=== PATIENT | female | born 1950 | race Caucasian/White ===

== ENCOUNTER → 2019-04-12 13:40 | Outpatient (CLI) | payer MEDICARE, OTHER, SELFPAY ==
--- NOTE | 2019-04-12 14:53 | XR_ITS ---
XR clavicle LT CLINICAL INDICATION: ITS.REASON: DEFORMITY ORDERING PHYSICIAN: Loree Mendoza APRN PATIENT AGE: 68 years Comparison: None FINDINGS: There is minimal prominence of the acromioclavicular joint space. In the setting of trauma this could represent a grade 1 before meals separation. Please correlate with clinical findings. No acute fracture. There is some minimal cortical thickening involving the junction of the mid distal aspect of the clavicle both superiorly and inferiorly which could be related to an old injury. No bony destructive process. IMPRESSION: 1. Mild prominence of the AC joint. 2. Mild cortical thickening of the mid to distal shaft of the clavicle which could be related to an old injury.
== END ==
PROVIDERS: PCP Nurse Practitioner Family; Visit Provider Nurse Practitioner Family
DX: M95.8 Other specified acquired deformities of musculoskeletal system (principal)
CPT/HCPCS: 73000

== ENCOUNTER → 2021-06-11 10:35 | Outpatient (CLI) | payer MEDICARE, OTHER, SELFPAY ==
--- NOTE | 2021-06-11 10:44 | CA_ITS ---
APPROVED REPORT Right Lower Extremity Venous Study for DVT. Travel Attendants: MACK Barnes Lower Extremity Pain: Right Varicose Veins Vein Imaging CFV (R): compressive, spontaneous, phasic, augmentation FEM (R): compressive, spontaneous, phasic, augmentation POP (R): compressive, spontaneous, phasic, augmentation DFV (R): compressive, spontaneous, phasic, augmentation PTV (R): compressive, spontaneous, phasic, augmentation GSV (R): compressive, spontaneous, phasic, augmentation Peroneals (R):compressive, spontaneous, phasic, augmentation Findings Study suggests no evidence of DVT or SVT in the right lower extremity. Conclusion Study suggests no evidence of DVT or SVT in the right lower extremity. Critical Notification Critical Value: No Physician Notified Date: 06/11/2021 Time: 11:20 Physician Name: Leti Electronically signed by : Austin Antoine MD 06/11/2021 16:34:52
== END ==
PROVIDERS: PCP Nurse Practitioner Family; Visit Provider Nurse Practitioner
DX: M79.604 Pain in right leg (principal)
CPT/HCPCS: 93971

== ENCOUNTER 2021-08-23 16:00 | Outpatient (RCR) | payer MEDICARE, OTHER, SELFPAY | END 2021-09-30 15:55 | disposition home or self-care (01) | LOC: PT.CARL 16:00 | PROVIDERS: PCP Nurse Practitioner Family; Visit Provider Nurse Practitioner Family | DX: M70.61 Trochanteric bursitis, right hip (principal) | CPT/HCPCS: 97014; 97033; 97035; 97110; 97140; 97163; G0283 ==

== ENCOUNTER → 2021-09-09 14:15 | Outpatient (CLI) | payer MEDICARE, OTHER, SELFPAY ==
--- NOTE | 2021-09-09 14:19 | MR_ITS ---
PROCEDURE: MR LUMBAR SPINE WO CON CLINICAL INDICATION: PAIN DOWN RT LEG COMPARISON: No exams were available for comparison TECHNIQUE: Standard multiplanar multiecho sequences are performed without contrast. 3-D MIP and myelographic images are also rendered and reviewed FINDINGS: There is trace anterolisthesis of L5 on S1. At L1-2, there is diffuse disc bulge and facet arthropathy producing mild canal stenosis. There is also edema in the facets at this level. At L2-3, there is diffuse disc bulge, severe facet arthropathy, and ligamentum flavum hypertrophy producing severe canal stenosis and severe bilateral neural foraminal stenosis. At L3-4, there is diffuse disc bulge, a good ligamentum flavum hypertrophy, and facet arthropathy producing moderate canal stenosis and severe bilateral neural foraminal stenosis. There is also edema in the left facet joint at this level. At L4-5, there is diffuse disc bulge, facet arthropathy, and ligamentum flavum hypertrophy producing moderate canal stenosis and severe right and moderate left neural foraminal stenosis. There is edema in the right facet joint at this level. There are T2 hyperintense T1 hyperintense lesions within the vertebral bodies at T10 and L1 consistent with hemangiomas. IMPRESSION: Lumbar spondylosis and spondylolisthesis as detailed above, with the worst changes at L2-3 where there is severe canal and bilateral neuroforaminal stenosis. Dictated by: Marga Jenkins MD 09/09/2021 16:23 Marga Jenkins MD in [place] 09/09/2021 16:23
== END ==
PROVIDERS: PCP Nurse Practitioner Family; Visit Provider Nurse Practitioner Family
DX: M51.15 Intervertebral disc disorders with radiculopathy, thoracolumbar region (principal); M54.50 Low back pain, unspecified
CPT/HCPCS: 72148; 76376

== ENCOUNTER 2021-10-19 12:58 | Emergency (ER) | payer MEDICARE, OTHER, SELFPAY ==
--- NOTE | 2021-10-19 13:02 | XR_ITS ---
PROCEDURE: XR HIP RT 2-3V W/PELVIS CLINICAL INDICATION: PAIN, NO ACCIDENT COMPARISON: No exams were available for comparison FINDINGS: There are moderate to severe osteoarthritic changes of the right hip with decrease in joint space superiorly and osteophyte formation at the acetabulum and femoral head. There is some cortical regularity of the acetabulum. No fracture or dislocation. No lytic or blastic change. IMPRESSION: Moderate to severe osteoarthritis of the right hip Dictated by: Austin Antoine MD 10/19/2021 14:32 Austin Antoine MD in [place] 10/19/2021 14:32
[2021-10-19 14:31] VITALS: BP 179/95; PULSE 82; RESP 16; TEMP 36.7; O2SAT 98; BMI 37.3
--- NOTE | 2021-10-19 14:50 | HMH.EDUTC ---
[facility] [place] Disposition Clinical Impression: Sciatica Qualifiers: Laterality: right Qualified Code(s): M54.31 - Sciatica, right side Disposition: Home, Self-Care Condition on Discharge: Good Instructions: Sciatica, DI for Sciatica Additional Instructions: *Ibuprofen sherry 6 hours with meal as needed for pain/inflammation *Remember you had a Toradol shot in the clinic today, which is similar to Motrin *Not additional anti-inflammatory like motrin, aleve, advil with the above amount of ibuprofen. You can still take Tylenol every 4 hours as needed if you need something else for pain *Ice 20 minutes every 2 hours for the first 48 hours after the initial injury followed by moist heat every 20 minutes 3-4 times a day to affected area *Muscle relaxer every 8 hours as needed for muscle spasms but remember, it WILL cause drowsiness You cannot take it and drive, operate machinery or care for small children. *Keep this area active, no movement leads to more stiffness, However take it easy and avoid heavy lifting pushing or pulling *Follow up with you family doctor if no improvement for further treatment Referrals: Nirali Esqueda [Primary Care Provider] - Patsy Anthony APRN [Advanced Practice Nurse] - 10/25/21 2:30 pm ([facility] in the Front Lobby) Medical Decision Making - Blaze Inquiry Pt receiving controlled substance: No Blaze was queried for this patient: No Vital Signs: 10/19/21 14:31 10/19/21 15:25 Temperature 98.1 F 98.1 F Temperature Source Oral Pulse Rate 82 Pulse Rate [Left] 82 Respiratory Rate 16 16 Blood Pressure 179/95 H Blood Pressure [Right Arm] 179/95 H Blood Pressure Mean [Right Arm] 123 02 Sat by Pulse Oximetry 98 Orders (Tests/Meds): ED MEDICATIONS Discontinued Medications Generic Name Dose Route Start Last Admin Trade Name Freq PRN Reason Stop Dose Admin Ketorolac Tromethamine 60 mg 10/19/21 14:58 10/19/21 15:07 Ketorolac 60mg/2ml Vial IM 10/19/21 14:59 60 mg ONCE ONE Administration Methylprednisolone Sodium Succinate 125 mg 10/19/21 14:58 10/19/21 15:06 Methylprednisolone Sod Succ 125mg Vial IM 10/19/21 14:59 125 mg ONCE ONE Administration - Radiology Data #1 Image(s): Hip Image Reviewed: Yes I have reviewed radiologist's interpretation Moderate to severe osteoarthritis of the right hip #2 Image(s): L-Spine Image Reviewed: Yes I have reviewed radiologist's interpretation IMPRESSION: Multilevel lumbar spondylosis with degenerative disc disease. 8 mm anterolisthesis of L5 on S1 - Physician Consults Physician Consulted: Patsy Anthony Time: 14:59 Reason -: Other (Pain Management) Comment/Response: Spoke with staff at pain management to get patient in for medication injection to help with pain from sciatica Requested that we get a Lspine to go along with the hip xray an they will see her on Monday at 230 Medical Decision Narrative: Patient states that she has taken both Toradol and Solumedrol in the past without complications or reactions Patient ordered xray of Lspine will not make patient wait for results ordered for her visit on Monday with Pain Management [facility] [place] HPI - General Stated complaint: hip pain, no accident Time Seen by Provider: 10/19/21 14:50 Mode of Arrival: Ambulatory Source of Information: Patient Limitations: No Limitations Description of Symptoms (Recalled from Triage Doc. by RN): pt c/o R hip and buttock pain. pain is 8/10 and sharp in nature. pt states this has been ongoing for awhile now. pt has seen her pcp for the issue who said it may be a pinched nerve. pt is ongoing therapy at and a chiropracter. HEENT Symptoms (Recalled from RN notes): No Resp Symptoms (Recalled from RN notes): No Skin Symptoms (Recalled from RN notes): No MS Symptoms (Recalled from RN notes): Yes (R hip pain) Functional Status (Recalled from RN notes): wnl - History of Present Illness Provider Complaint: Patient states that she has bee
--- NOTE | 2021-10-19 14:56 | XR_ITS ---
PROCEDURE: XR LUMBAR SPINE 2-3V CLINICAL INDICATION: pain COMPARISON: MR MR LUMBAR SPINE WO CON from 09/09/2021 FINDINGS: There is mild lumbar curvature convex left. Multilevel degenerative disc disease is present from L1-S1. There is mild anterolisthesis of L5 on S1 of 8 mm. No fracture or dislocation. No lytic or blastic change. There is severe osteoarthritic change of the right hip and moderate osteoarthritis of the left hip. Generalized vascular calcification. Other findings:None. IMPRESSION: Multilevel lumbar spondylosis with degenerative disc disease. 8 mm anterolisthesis of L5 on S1 Dictated by: Austin Antoine MD 10/19/2021 15:37 Austin Antoine MD in [place] 10/19/2021 15:37
[2021-10-19 15:25] VITALS: BP 179/95; PULSE 82; RESP 16; TEMP 36.7
== END 2021-10-19 15:26 | disposition home or self-care (01) ==
PROVIDERS: Emergency Provider Nurse Practitioner; PCP Nurse Practitioner Family
DX: M54.31 Sciatica, right side (principal); E11.9 Type 2 diabetes mellitus without complications; Z79.84 Long term (current) use of oral hypoglycemic drugs
CPT/HCPCS: 72100; 73502; 96372; 99202; G0463

== ENCOUNTER → 2021-10-21 14:04 | Outpatient (POV) | payer MEDICARE, OTHER, SELFPAY ==
[2021-10-21 14:27] VITALS: BP 141/83; PULSE 87; RESP 18; O2SAT 96; BMI 37.3
--- NOTE | 2021-10-21 15:47 | HMH.PMCON ---
Assessment and Plan (1) Degenerative joint disease (DJD) of lumbar spine Status: Chronic Category: Medical Code(s): M47.816 - Spondylosis without myelopathy or radiculopathy, lumbar region (2) Lumbar radiculopathy Status: Chronic Category: Medical Code(s): M54.16 - Radiculopathy, lumbar region (3) Facet arthropathy Status: Chronic Category: Medical Code(s): M47.819 - Spondylosis without myelopathy or radiculopathy, site unspecified (4) Spinal stenosis Status: Chronic Category: Medical Code(s): M48.00 - Spinal stenosis, site unspecified - Assessment and plan all Dx Assessment and Plan for all problems:: The patient is here today for consultation for right buttock pain, right hip pain and right anterior thigh pain. We discussed her MRI in great detail as well as the x-rays of her lumbar spine and hips. The patient does have severe osteoarthritis right hip as well as moderate osteoarthritis left hip per x-ray report. Per MRI report, patient does have facet arthropathy with edema as well as severe spinal stenosis and is exhibiting somewhat of neurogenic claudication symptoms with weakness in lower extremities. Patient I did discuss her symptoms. She is unsure about injective therapy at this point we did discuss continuing anti-inflammatories prescribed with diclofenac 75 mg 1 tablet p.o. twice daily. She has been advised to stop taking any other [id number] anti-inflammatories. We will also start the patient on tramadol 50 mg 1 tablet p.o. 3 times daily until she is able to discuss injective therapy with her family. She will contact the clinic if she does decide to proceed with injections. We will start with injective therapy of medial branch block/facet joint injections at L3-L4 L4-L5 on the right side only if the patient does wish to proceed with injections. She is not diabetic and is not on any anticoagulation therapy. We will follow up with her in a month if she does decide to defer on injective therapy. She does report to have facial flushing with corticosteroids. Possible side effects of corticosteroids have been discussed with the patient. Risks and benefits of the procedure have been explained to the patient. Patient would like to proceed with the procedure. Patient has been instructed to contact the clinic with any concerns before the next appointment. Dr. Beasley has reviewed this note and agrees with this plan of care. This note was dictated using voice recognition software and make contain errors or omissions. HPI - Data of Consult Patient: new to practice Consult date: 10/21/21 Requesting Physician: Patsy Anthony APRN - Consult Narrative Reason for consult: Right hip pain, right anterior thigh pain, right buttock pain History of present illness: Ms. De Luna is a 71 year old female who presents today for consultation for chronic right hip, right buttock and right anterior thigh pain. Patient says that she has had ongoing pain to these areas for nearly 6 months. She says the pain has progressively worsened over the last 3 weeks to the point that it was nearly unbearable. She recently followed up with the urgent treatment center and was given Toradol and steroids. She says this did give her some relief. She is here today for evaluation for the pain. She says the pain does worsen when leaning forward. She also reports to have pain with turning and twisting at waist. She has been seeing a chiropractor who reports to the patient that she has misalignment of her pelvis. She says that she has been realigned and initially got relief, but the pain seems to be worsening at this point. She also has tried physical therapy for more than 6 weeks and continues with home stretching. She has been taking anti-inflammatories?Aleve/ibuprofen with minimal relief. The patient's pain is worse when she is standing and walking. She says that she does have pain in her buttock with prolonged sitting. Today, the pa
== END ==
PROVIDERS: Visit Provider Clinical Nurse Specialist Family Health
DX: M47.896 Other spondylosis, lumbar region (principal); M54.16 Radiculopathy, lumbar region; M48.00 Spinal stenosis, site unspecified
CPT/HCPCS: 99212; G0463

== ENCOUNTER → 2021-11-04 09:39 | Outpatient (POV) | payer MEDICARE, OTHER, SELFPAY ==
[2021-11-04 10:07] VITALS: BP 139/80; PULSE 88; RESP 18; O2SAT 97; BMI 37.3
--- NOTE | 2021-11-04 10:49 | HMH.PAINSOAP ---
[facility] Pain Management SOAP Note Subjective:: Patient is a 71-year-old white female who presents today for follow-up. She was previously started on tramadol for right lower extremity pain radiating into right foot. She denies any type of low back pain at this time. We did review her MRI at last visit. The patient is not interested in injective therapy or implanted devices. She was started on tramadol 50 mg 1 tablet p.o. 3 times daily. The medication is not working for the patient. She would like to discuss possible neuropathic medications to help with pain. She does report that her niece takes gabapentin which helps significantly with her lower extremity pain. Today, she rates her pain a 7 out of 10. She is having difficulty standing and walking on her right lower extremity. The pain does start in the right buttock and into the right thigh and foot. She has tried home stretching with minimal relief. She does report side effects to corticosteroids. Review of Systems General: No recent weight changes, no fever, no sleep disturbances Respiratory: No cough, no shortness of air, no recurring pulmonary infections Cardiovascular/peripheral vascular: No chest pain, no palpitations, no edema, no shortness of breath Gastrointestinal: No new onset incontinence, normal bowel movements reported Genitourinary: No new onset incontinence Musculoskeletal: Right lower extremity pain, right buttock pain, right foot pain with numbness and tingling Psychiatric: [Normal mood/affect] Neurological: Weakness right lower extremity Objective:: Physical exam General: Alert and oriented x3, no acute distress, pleasant and cooperative Lungs: Respirations even and unlabored, symmetrical chest expansion Eyes: PERRL Musculoskeletal: Flexion and extension of right lower extremity somewhat guarded secondary to pain, [antalgic gait noted] Neurological: Speech clear, no gross sensory deficit Assessment:: Degenerative disc disease lumbar spine with lumbar radiculopathy symptoms, neuropathic pain Plan:: We will order the patient gabapentin 300 mg 1 tablet p.o. daily to see if this relieves the patient's symptoms of her right lower extremity pain. We will do a telehealth visit with the patient in 2 weeks. If she is getting relief we can increase that to 3 times daily. If patient is not getting relief we may need to change to Lyrica. She has been advised of the risks of the medication. She would like to proceed with the medicine. Risks and benefits of the medication have been explained in detail to the patient. If side effects do present with the medication, patient has been advised to stop the medication immediately and call the clinic. The patient has been advised to consult with his/her primary care provider and pharmacist regarding drug-drug interaction of medications currently prescribed. Patient has been instructed to contact the clinic with any concerns before the next appointment. Dr. Beasley has reviewed this note and agrees with this plan of care. This note was dictated using voice recognition software and make contain errors or omissions. [facility] History I have reviewed the patient's past medical history: Yes Medical History: Reports:: Diabetes Mellitus Type 2 *Have you ever received a pneumonia vaccine?: No *Have you received a flu vaccine this season?: No - *Social History Smoking Status: Never smoker Alcohol Intake: never *Occupational Status:: unemployed Housing: house *Travel in the last 8 weeks: None Family Hx:: No significant family history
== END ==
PROVIDERS: Visit Provider Clinical Nurse Specialist Family Health
DX: M51.16 Intervertebral disc disorders with radiculopathy, lumbar region (principal); M79.2 Neuralgia and neuritis, unspecified
CPT/HCPCS: 99212; G0463

== ENCOUNTER → 2021-11-18 10:32 | Outpatient (POV) | payer MEDICARE, OTHER, SELFPAY ==
--- NOTE | 2021-11-18 11:01 | HMH.VVPMSO ---
[facility] Virtual Visit SOAP Consent for virtual visit:: With the recent concerns about the COVID-19, we are trying to minimize exposure to you by shifting to telehealth appointments whenever possible. It restricts me from seeing you in person, but the trade off is protecting you during this pandemic. Can you see and hear me okay, and do you consent to this option? If not, I would be happy to see if we can reschedule your appointment in the future, when feasible. Has patient consented to this virtual visit?: Yes Subjective:: Patient is a 71-year-old white female who is following up via telehealth medicine today. She has rescheduled via telehealth due to weather conditions today. We do treat the patient for low back pain as well as pain into the right foot. She is currently on tramadol 50 mg 3 times daily and trustworthy person was started on gabapentin 300 mg 1 tablet p.o. daily at last visit. She says this is giving her significant relief. She would like to increase the dose of gabapentin. She says that the medicine does wear off in about 5 hours. She did not have any side effects with the medication. She says that it did lower her pain to a 3 out of 10 which is much better than her 7 out of 10 which was reported at last visit. She says she is able to stand and walk better on her right lower extremity. She also says that the right buttock and right thigh pain has improved as well. Review of Systems General: No recent weight changes, no fever, no sleep disturbances Respiratory: No cough, no shortness of air, no recurring pulmonary infections Cardiovascular/peripheral vascular: No chest pain, no palpitations, no edema, no shortness of breath Gastrointestinal: No new onset incontinence, normal bowel movements reported Genitourinary: No new onset incontinence Musculoskeletal: Low back pain, right lower extremity pain, right buttock pain Psychiatric: [Normal mood/affect] Neurological: [Denies weakness in extremities], [denies balance issues] Objective:: Physical exam General: Alert and oriented x3, no acute distress, pleasant and cooperative Assessment:: Degenerative disc disease lumbar spine with lumbar radiculopathy symptoms, neuropathic pain Plan:: We will continue patient's tramadol 50 mg 1 tablet p.o. 3 times daily and increase gabapentin to 300 mg 1 tablet p.o. 3 times daily. She will get 3 months of medication will be seen back in the clinic in 3 months. Shirin #[id number] has been reviewed and is appropriate. Drug screen is appropriate. ORT is low risk. Patient has signed and completed a pain management agreement/contract today. Risks and benefits of the medication have been explained in detail to the patient. The patient does understand the risk of dependence on the medication when given over a prolonged period. Patient has been advised of risks of oversedation with the prescribed medication. Narcan has been offered to the paitent in the event of oversedation. Patient has been advised that a family member should also be educated regarding administration of Narcan. The patient has been advised to consult with his/her primary care provider and pharmacist regarding drug-drug interaction of medications currently prescribed. Patient has been prescribed a controlled substance after being counseled on the medication, medication safety, and possible side effects. SHIRIN report has been obtained and reviewed prior to prescription and found to be appropriate. Opioid contract was reviewed and signed by the patient, and that they have agreed to all of the terms set forth by our compliance program. Patient has been instructed to contact the clinic with any concerns before the next appointment. Dr. Beasley has reviewed this note and agrees with this plan of care. This note was dictated using voice recognition software and make contain errors or omissions. Time In:: 10:45 Time Out:: 10:55 [facility] History I have revi
== END ==
PROVIDERS: Visit Provider Clinical Nurse Specialist Family Health
DX: M51.16 Intervertebral disc disorders with radiculopathy, lumbar region (principal); M79.2 Neuralgia and neuritis, unspecified
CPT/HCPCS: 99212; G0463

== ENCOUNTER → 2022-02-10 10:16 | Outpatient (POV) | payer MEDICARE, OTHER, SELFPAY ==
[2022-02-10 10:23] VITALS: BP 129/72; PULSE 82; RESP 18; TEMP 36.2; O2SAT 97; BMI 36.6
--- NOTE | 2022-02-10 12:15 | HMH.PAINSOAP ---
[facility] Pain Management SOAP Note Subjective:: Patient is a pleasant 71-year-old female who is here for medication refill and follow-up. Patient is currently being treated for degenerative disc disease of the lumbar spine with lumbar radiculopathy symptoms, neuropathic pain. Patient is being managed with tramadol 50 mg 3 times a day, gabapentin 300 mg 3 times a day, and diclofenac. Patient denies any side effects from the medications. Patient denies any changes to the location and type of pain. Patient states that this is adequately helping manage their pain. Rates pain as 4 out of 10. [facility] number [id number] with an active morphine equivalent 15. Drug screens have been reviewed and appropriate. Review of Systems: General: No recent weight changes, no fever, no sleep disturbances Respiratory: No cough, no shortness of air, no recurring pulmonary infections Cardiovascular/peripheral vascular: No chest pain, no palpitations, no edema, no shortness of breath Gastrointestinal: No new onset incontinence, normal bowel movements reported Genitourinary: No new onset incontinence Musculoskeletal: Low back pain Psychiatric: [Normal mood/affect] Neurological: [Denies weakness in extremities], [denies balance issues] Objective:: Physical Exam: General: Alert and oriented x3, no acute distress, pleasant and cooperative, [on room air] Lungs: Respirations even and unlabored, symmetrical chest expansion Eyes: PERRL Musculoskeletal: Flexion and extension of lumbar [spine] somewhat guarded secondary to pain, [antalgic gait noted] Neurological: Speech clear, no gross sensory deficit Assessment:: Degenerative disc disease of lumbar spine with lumbar radiculopathy symptoms, neuropathic pain Plan:: We will continue the patient's tramadol 50 mg 3 times a day, gabapentin 300 mg 3 times a day. Patient was taking diclofenac 50 mg 3 times a day. She wants us to decrease this medication. I will change her to diclofenac 25 mg 3 times a day. We will provide the patient with 3months of refills. We would like to see the patient back in 3 months for follow-up and reevaluation of chronic pain syndrome. Patient has been advised of risks of oversedation with the prescribed medication. Narcan has been offered to the patient in the event of oversedation. Patient has been advised that a family member should also be educated regarding administration of Narcan. Patient has been instructed to contact the clinic with any concerns before the next appointment. Dr. Beasley has reviewed this note and agrees with this plan of care. This note was dictated using voice recognition software and make contain errors or omissions. [facility] History Medical History: Reports:: Diabetes Mellitus Type 2 *Have you ever received a pneumonia vaccine?: Yes *Have you received a flu vaccine this season?: No - *Social History Smoking Status: Never smoker Alcohol Intake: never *Occupational Status:: retired Housing: house *Travel in the last 8 weeks: None Family Hx:: No significant family history
== END ==
PROVIDERS: Visit Provider Student in an Organized Health Care Education/Training Program
DX: M51.16 Intervertebral disc disorders with radiculopathy, lumbar region (principal); M79.2 Neuralgia and neuritis, unspecified
CPT/HCPCS: 99212; G0463

== ENCOUNTER → 2022-05-12 08:46 | Outpatient (POV) | payer MEDICARE, OTHER, SELFPAY ==
[2022-05-12 08:57] VITALS: BP 132/64; PULSE 85; RESP 20; TEMP 36.3; O2SAT 100; BMI 38.4
--- NOTE | 2022-05-12 09:09 | P.CONS_ITS ---
[facility] Pain Management SOAP Note Subjective:: Patient is a pleasant 71-year-old female who presents today for follow-up. Patient is currently being treated for degenerative disease of lumbar spine with lumbar radiculopathy symptoms, neuropathic pain, right hip pain. Patient is currently being managed with tramadol 50 mg 3 times a day, gabapentin 300 mg 3 times a day and diclofenac 50 mg 3 times a day. Denies any side effects from these medications. Patient states that she has not taken tramadol for a while and wants to discontinue this medication. She continues with the gabapentin however, she says that this not providing any relief. She was in of there is a different medication she can take. She currently takes Tylenol and the dic lofenac which is mostly helping her pain. Today, patient states that most of her pain is on her right hip that radiates down to her posterior knee. She does have an appointment with an orthopedic group in [place] this coming month. She rates her pain a 6 out of 10. Blaze [id number] with an active morphine equivalent of 0. Review of Systems: General: No recent weight changes, no fever, no sleep disturbances Respiratory: No cough, no shortness of air, no recurring pulmonary infections Cardiovascular/peripheral vascular: No chest pain, no palpitations, no edema, no shortness of breath Gastrointestinal: No new onset incontinence, normal bowel movements reported Genitourinary: No new onset incontinence Musculoskeletal: Low back pain, right hip pain Psychiatric: [Normal mood/affect] Neurological: [Denies weakness in extremities], [denies balance issues] Objective:: Physical Exam: General: Alert and oriented x3, no acute distress, pleasant and cooperative Lungs: Respirations even and unlabored, symmetrical chest expansion Eyes: PERRL Musculoskeletal: Flexion and extension of lumbar [spine] somewhat guarded secondary to pain, [antalgic gait noted]; right SI positive for KEDAR, Kimmy's, Conover's, Gaenslen's, compression, and distraction. Patient is also tender to palpation around the right greater trochanteric bursa. Neurological: Speech clear, no gross sensory deficit Assessment:: Degenerative disease of lumbar spine with lumbar radiculopathy symptoms, right- sided sacroiliitis, right-sided greater trochanteric bursitis. Plan:: We will continue the patient's diclofenac 50 mg 3 times a day. We will try the patient on Lyrica 75 mg twice a day. We will discontinue the patient's tramadol. We will provide the patient with 1 month worth of refill. Patient does have a positive right SI exam and tenderness to palpation around the right greater trochanteric bursa. I have discussed with the patient that we can do injections in these areas. She states that she wants to see orthopedics first before moving forward with any other injective therapy at our clinic. Follow-up in 1 month Patient has been instructed to contact the clinic with any concerns before the next appointment. Dr. Beasley has reviewed this note and agrees with this plan of care. This note was dictated using voice recognition software and make contain errors or omissions. [facility] History Medical History: Reports:: Diabetes Mellitus Type 2 *Have you ever received a pneumonia vaccine?: Yes *Have you received a flu vaccine this season?: No - *Social History Smoking Status: Never smoker Alcohol Intake: never *Occupational Status:: other Housing: house *Travel in the last 8 weeks: None Family Hx:: No significant family history
== END ==
PROVIDERS: Visit Provider Student in an Organized Health Care Education/Training Program
DX: M51.16 Intervertebral disc disorders with radiculopathy, lumbar region (principal); M46.1 Sacroiliitis, not elsewhere classified; M70.61 Trochanteric bursitis, right hip
CPT/HCPCS: 99212; G0463

== ENCOUNTER → 2022-07-28 14:02 | Outpatient (POV) | payer MEDICARE, OTHER, SELFPAY ==
[2022-07-28 14:14] VITALS: BP 137/89; PULSE 93; RESP 18; TEMP 36.4; O2SAT 95; BMI 38.4
--- NOTE | 2022-07-28 14:37 | EXP.PAIN.SOA ---
[facility] Pain Management SOAP Note Subjective:: Patient is a pleasant 71-year-old female who presents today for follow-up. We are currently treating the patient for degenerative disc disease of lumbar spine with lumbar radiculopathy symptoms, neuropathic pain, right hip pain. Today the patient rates her pain a 8 out of 10 and states it is primarily in her right hip that radiates into her right thigh down her knee. Patient denies any new trauma or injury to the site. She states she has had this pain on again off again for the last year. Patient denies any change to the location or type of pain she experiences. Patient is currently managed with tramadol 50 mg 3 times a day and gabapentin 300 mg 3 times a day. Patient denies any side effects from this medication. She states these medications are adequately managing her pain. Patient does not need any refills at this time. She does state that she only uses the tramadol as needed. Patient is also prescribed diclofenac 50 mg 3 times a day. Patient does use Tylenol as needed. Patient states she has recently had a hip injection from a orthopedic group in [place]. Her Blaze is [id number]. It has been reviewed and appropriate. Review of Systems: General: No recent weight changes, no fever, no sleep disturbances Respiratory: No cough, no shortness of air, no recurring pulmonary infections Cardiovascular/peripheral vascular: No chest pain, no palpitations, no edema, no shortness of breath Gastrointestinal: No new onset incontinence, normal bowel movements reported Genitourinary: No new onset incontinence Musculoskeletal: Right hip pain, right thigh pain Psychiatric: [Normal mood/affect] Neurological: [Denies weakness in extremities], [denies balance issues] Objective:: Physical Exam: General: Alert and oriented x3, no acute distress, pleasant and cooperative Lungs: Respirations even and unlabored, symmetrical chest expansion Eyes: PERRL Musculoskeletal: Flexion and extension of lumbar [spine] somewhat guarded secondary to pain, [antalgic gait noted]. Positive point tenderness right SI and positive right Emelyn's, Kimmy's, Gaenslen's, compression and distraction exam Neurological: Speech clear, no gross sensory deficit Assessment:: Patient is experiencing significant pain in her low back on the right side that radiates into her right hip, groin and thigh. Patient had limited range of motion due to the pain as well as a positive point tenderness along her right SI and positive right Emelyn's, Kimmy's, Gaenslen's, compression and distraction exam during today's visit. I have discussed with the patient about a right SI injection. Risk and benefits were discussed with the patient. She would like to proceed forward with this injection. We will schedule the patient for a right SI injection at today's visit. Patient has been instructed to contact the clinic with any concerns before the next appointment. Dr. Beasley has reviewed this note and agrees with this plan of care. This note was dictated using voice recognition software and make contain errors or omissions. PFSH PFSH Social History Smoking Status: Never smoker alcohol intake: never current occupational status: retired Travel in the last 8 weeks: None housing: house
== END ==
PROVIDERS: PCP Nurse Practitioner Family; Visit Provider Nurse Practitioner Family
DX: M54.50 Low back pain, unspecified (principal); M25.551 Pain in right hip
CPT/HCPCS: 99212; G0463

== ENCOUNTER 2022-08-09 13:08 | Day surgery (SDC) | payer MEDICARE, OTHER, SELFPAY ==
[2022-08-09 13:26] VITALS: BP 143/68; PULSE 82; RESP 18; TEMP 36.4; O2SAT 99; BMI 38.4
[2022-08-09 13:40] VITALS: BP 125/100; PULSE 99; RESP 19; O2SAT 99
[2022-08-09 13:42] VITALS: BP 125/100; PULSE 99; RESP 19; O2SAT 99
[2022-08-09 13:46] VITALS: BP 147/66; PULSE 77; RESP 18; O2SAT 99
--- NOTE | 2022-08-09 13:46 | EXP.PAIN.PRO ---
Procedure Date: 08/09/22 Time: 13:46 Anesthesiologist:: Mike Dorantes CRNA Complications:: None Pre-procedure Diagnosis:: Right sacroiliitis Post-procedure Diagnosis:: Same Indications for Procedure:: Very pleasant 71-year-old female that comes our clinic today for right SI joint injection. Patient has extreme point tenderness over the right SI joint. She rates her pain 8/10. Patient has difficulty transitioning from standing to sitting. Patient's pain intensifies with lumbar flexion. Ambulating is difficult. Procedure Details:: Procedure: Right sacroliliac joint injection under fluoroscopy Informed consent was obtained and the risk and benefits of the procedure were explained to the patient.~ The patient was taken to the procedure room and noninvasive monitors were placed including noninvasive blood pressure cuff and pulse oximeter.~ The patient was placed prone on the procedure table.~ The~ right hip was cleansed using Betadine as a cleansing solution.~ C-arm fluorosocpy was used to view the right SI joint.~ The skin and subcutaneous tissues were anesthetized using Lidocaine 1.5% and a 25-gauge needle.~ After this, a 22-gauge spinal needle was inserted under fluoroscopic guidance into the inferior aspect of the right SI joint.~ Omnipaque dye was injected and a good spread was seen throughout the joint.~ After this, approximately 5 mL of bupivacaine 0.25% and Depo-Medrol 40 mg was incrementally injected into the sacroiliac joint.~ The patient tolerated the procedure well with no complications.~ The patient was observed in the Pain Clinic, then discharged home neurologically intact.~ Plan and Disposition:: Patient was discharged without incident.
== END 2022-08-09 13:46 | disposition home or self-care (01) ==
LOC: SC.PAINP 13:09
PROVIDERS: PCP Nurse Practitioner Family; Visit Provider Nurse Anesthetist, Certified Registered
DX: M46.1 Sacroiliitis, not elsewhere classified (principal)
CPT/HCPCS: 27096; G0260; J1040

== ENCOUNTER → 2022-08-17 10:39 | Outpatient (POV) | payer MEDICARE, OTHER, SELFPAY ==
[2022-08-17 11:11] VITALS: BP 139/89; PULSE 99; RESP 18; TEMP 36.2; O2SAT 97; BMI 38.4
--- NOTE | 2022-08-17 11:53 | EXP.PAIN.SOA ---
[facility] Pain Management SOAP Note Subjective:: Patient is a pleasant 71-year-old female who presents today for follow-up of right SI injection on 08/09/2022. We are currently treating the patient for sacroiliitis, low back pain. Patient states she did have significant improvement in her thigh pain following this injection however she is continues to have low back and hip pain. Today she rates her pain a 8 out of 10. She states the pain is still primarily in her low back and hip as well as her bilateral knees. Patient states that she has seen Dr. Soria in the past for a left knee Tanner's cyst. Patient denies any new trauma or injury. She denies any change in location or type of pain she experiences. She is currently managed with gabapentin 300 mg 3 times a day. Patient previously had talked to our office regarding vision issues that may have been related to her gabapentin. At today's visit she clarified that she has had these vision issues for some time even before starting her gabapentin. She states it is primarily while she is driving at night and so she is stopped doing that altogether. She states she has been to her eye doctor 2 to [address] Horn in [place] and he did send her on to [place] for 1 spots in her left eye however the specialist told her it was fine. Patient had recently tried to do gabapentin 2 at night and 1 in the morning however she stated she has not noticed any change in her symptoms. She stated that she actually got better relief of her pain symptoms when she did take this medication 3 times a day. Patient also states she has gotten a hip injection from a Dr. Whaley in the past however it did not improve any of her symptoms. Patient does take Tylenol arthritis and ibuprofen as needed to help with her pain symptoms. Her Blaze is [id number]. It has been reviewed and appropriate. Review of Systems: General: No recent weight changes, no fever, no sleep disturbances Respiratory: No cough, no shortness of air, no recurring pulmonary infections Cardiovascular/peripheral vascular: No chest pain, no palpitations, no edema, no shortness of breath Gastrointestinal: No new onset incontinence, normal bowel movements reported Genitourinary: No new onset incontinence Musculoskeletal: Low back pain, hip hip pain bilateral knee pain Psychiatric: [Normal mood/affect] Neurological: [Denies weakness in extremities], [denies balance issues] Objective:: Physical Exam: General: Alert and oriented x3, no acute distress, pleasant and cooperative Lungs: Respirations even and unlabored, symmetrical chest expansion Eyes: PERRL Musculoskeletal: Flexion and extension of lumbar [spine] somewhat guarded secondary to pain, [antalgic gait noted] Neurological: Speech clear, no gross sensory deficit Assessment:: Sacroiliitis, low back pain, bilateral hip pain Plan:: Patient continues to have significant pain in her low back and bilateral hips as well as bilateral knees. I have discussed with the patient that she may benefit from a lumbar epidural steroid injection. Risk and benefits were discussed with the patient. At this time she would like to hold off. I will order her a compounding cream and tizanidine 4 mg at night and provide a 14-day supply of this medication. We will follow-up with the patient in 2 weeks for reevaluation of symptoms and medication refill if indicated. Patient has been instructed to contact the clinic with any concerns before the next appointment. Dr. Beasley has reviewed this note and agrees with this plan of care. This note was dictated using voice recognition software and make contain errors or omissions. [facility] Medical History (Updated 08/09/22 @ 13:32 by Ivis Pal RN) Back pain H/O bladder problems Hyperlipidemia Hypothyroidism Surgical History (Updated 08/09/22 @ 13:34 by Ivis Pal RN) History of hysterectomy No significant past surgical history Family History (Updated 08/09/22 @ 13
== END | disposition home or self-care (01) ==
PROVIDERS: PCP Nurse Practitioner Family; Visit Provider Nurse Practitioner Family
DX: M46.1 Sacroiliitis, not elsewhere classified (principal); M54.50 Low back pain, unspecified; M25.551 Pain in right hip; M25.552 Pain in left hip
CPT/HCPCS: 99212; G0463

== ENCOUNTER 2022-10-08 11:48 | Emergency (ER) | payer MEDICARE, OTHER, SELFPAY ==
[2022-10-08 11:58] VITALS: BP 114/91; PULSE 62; RESP 20; TEMP 36.7; O2SAT 96; BMI 37.6
[2022-10-08 12:30] VITALS: BP 119/74; PULSE 82; RESP 16; O2SAT 98
[2022-10-08 12:58] LABS: Basophils % 0.5 % (0.1-2.0); Eosinophils # 0.1 K/mm3 (0.0-0.4); Eosinophils % 1.8 % (0.1-12.0); Hematocrit 41.5 % (37.0-47.0); Hemoglobin 12.8 g/dL (12.2-16.2); Lymphocytes # 1.4 K/mm3 (0.7-4.5); Lymphocytes % 19.6 % (10-50); Mean Corpuscular HGB Conc 30.8 g/dL (31.8-35.4); Mean Corpuscular Hemoglobin 30.6 pg (27.0-31.2); Mean Corpuscular Volume 99.4 fl (81-99); Mean Platelet Volume 7.5 fl (7.4-10.4); Monocytes # 0.3 K/mm3 (0.1-1.0); Monocytes % 4.2 % (1.7-9.3); Neutrophils # 5.2 K/mm3 (1.8-7.8); Platelet Count 331 K/mm3 (142-424); Red Blood Count 4.18 M/mm3 (4.20-5.40); Red Cell Distribution Width 13.3 % (11.5-17.5); White Blood Count 7.1 K/mm3 (4.8-10.8)
[2022-10-08 13:00] VITALS: BP 121/74; PULSE 78; RESP 18; O2SAT 97
[2022-10-08 13:04] LABS: Chloride 103 mmol/L (98-107); Potassium 3.8 mmoL/L (3.5-5.1); Sodium 140 mmol/L (136-145)
[2022-10-08 13:07] LABS: Alanine Aminotransferase 15 U/L (12-78); Albumin/Globulin Ratio 1.4 (1.1-1.8); Alkaline Phosphatase 82 U/L (38-126); Anion Gap 8.8 mEq/L (5-15); Aspartate Amino Transferase 28 U/L (14-36); Bilirubin,Total 0.3 mg/dl (0.2-1.3); Blood Urea Nitrogen 13 mg/dl (7-17); Carbon Dioxide 32 mmol/L (22.0-30.0); Creatinine Clearance Estimated 73 mL/min (50-200); Estimated Glomerular Filt Rate 98 ml/min (>60); GFR (African American) 118 ML/MIN (>60); Globulin 2.8 g/dL (1.3-3.2); Glucose 143 mg/dl (74-100); Lipase 15 U/L (23-300); Total Protein,Serum 6.8 g/dl (6.3-8.2)
[2022-10-08 13:31] VITALS: BP 119/67; PULSE 76; RESP 18; O2SAT 97
--- NOTE | 2022-10-08 13:45 | HMH.EDGENADL ---
Discharge Plan Disposition Patient Disposition: Home, Self-Care Condition: Good Prescriptions Prescriptions: New meclizine 25 mg tablet 25 mg PO TID PRN (Reason: Vertigo) Qty: 15 0RF ondansetron 4 mg tablet,disintegrating 4 mg PO Q8H PRN (Reason: nausea and vomiting) Qty: 10 0RF No Action levothyroxine 100 MCG tablet 100 mcg PO DAILY Label Comments: TAKE 1 TABLET BY MOUTH EVERY MORNING ON AN EMPTY STOMACH tizanidine [Zanaflex] 4 mg tablet 4 mg PO HS Qty: 14 0RF gabapentin 300 MG capsule 300 mg PO TID Qty: 90 0RF tramadol 50 MG tablet 50 mg PO TID Qty: 90 0RF gabapentin 300 mg capsule 300 mg PO TID Qty: 90 0RF Myrbetriq 25 mg tablet extended release 24 hr 25 mg PO DAILY Referrals Follow up/Referrals: Nirali Esqueda [Primary Care Provider] - See instructions Activity Restrictions/Add. Instructions Additional Instructions/Restrictions: Meclizine as needed for dizziness. Zofran as needed for nausea. Follow-up with primary care provider, call Monday to make appointment. Clinical Impressions Clinical Impression: Nausea vomiting and diarrhea, Vertigo Instructions Patient Instructions: DI for Diarrhea and Traveler's Diarrhea -- Adult, DI for Nausea -- Adult, DI for Vertigo Discharge ED Provider: Zacarias Beatty General Adult HPI General Chief complaint: Nausea/Vomiting/Diarrhea Stated complaint: diarrhea, black colored stool, dizzy, vomiting Time Seen by Provider: 10/08/22 13:30 Mode of Arrival: Wheelchair Source of Information: Patient Limitations: No Limitations Description of Symptoms (Recalled from ER Triage Doc. by RN): Patient states that for the last 2-3 weeks she has been experiencing nausea/vomiting and diarrhea. states that she has also been experiencing dizziness and off and on as well. (history of dizziness within the past year and is on medication for dizziness). pt states that her diarrhea has been black for the past week, but that it seems darker today than previously. History of Present Illness HPI narrative: 2 to 3-week history of nausea, vomiting, diarrhea. Intermittent episodes of dizziness. She had an episode of dizziness during the night and also had 1 last week. She took some leftover meclizine that she had from previous episodes of dizziness and it helped. She says that her diarrhea is dark/black. No vomiting of blood. She has not vomited today. Denies any abdominal pain. Related Data Home Medications Medication Instructions Recorded Confirmed levothyroxine 100 mcg tablet 100 mcg PO DAILY THYROID 12/18/19 08/17/22 mirabegron 25 mg tablet,extended 25 mg PO DAILY bladder 08/09/22 08/17/22 release 24 hr (Myrbetriq) Previous Rx's Medication Instructions Recorded gabapentin 300 mg capsule 300 mg PO TID Pain #90 caps 08/17/22 tizanidine 4 mg tablet (Zanaflex) 4 mg PO HS #14 tabs 08/17/22 tramadol 50 mg tablet 50 mg PO TID Pain #90 tabs 09/12/22 gabapentin 300 mg capsule 300 mg PO TID #90 caps 09/19/22 meclizine 25 mg tablet 25 mg PO TID PRN Vertigo #15 tabs 10/08/22 ondansetron 4 mg disintegrating 4 mg PO Q8H PRN nausea and 10/08/22 tablet vomiting #10 tabs Allergies Allergy/AdvReac Type Severity Reaction Status Date / Time No Known Allergies Allergy Verified 08/09/22 13:29 [facility] Medical History (Updated 10/08/22 @ 14:51 by Zacarias Beatty MD) Back pain H/O bladder problems Hyperlipidemia Hypothyroidism Surgical History (Updated 08/09/22 @ 13:34 by Ivis Pal RN) History of hysterectomy No significant past surgical history Family History (Updated 08/09/22 @ 13:32 by Ivis Pal RN) Other No significant family history Social History (Updated 08/09/22 @ 13:34 by Ivis Pal RN) Smoking Status: Never smoker alcohol intake: never current occupational status: retired Travel in the last 8 weeks: None housing: house ROS Obtained: Yes Systems rev
[2022-10-08 14:25] LABS: Microscopic, Urine URINE MICROSCOPIC (MICROSCOPIC)
[2022-10-08 14:26] LABS: Appearance,Urine CLEAR (Clear); Blood, Urine 2+ (Negative); Color,Urine YELLOW (Yellow); Glucose,Urine (UA) Negative (Negative); Ketones,Urine 1+ (Negative); Leukocyte Esterase,Urine Negative (Negative); Nitrate,Urine Negative (Negative); PH,Urine 5.5 (5.0-8.5); Protein,Urine Negative (Negative); Specific Gravity, Urine >= 1.030 (1.005-1.030); Urobilinogen,Urine 0.2 EU/dl (0.2)
[2022-10-08 14:30] LABS: Occult Blood,Stool Negative (Negative)
--- NOTE | 2022-10-08 14:33 | PC.NURSE ---
at the bedside
[2022-10-08 14:46] LABS: Amorphous Sediment,Urine Trace /lpf; Bacteria,Urine 1+ /lpf; RBC,Urine Occasional #/hpf (0-3)
[2022-10-08 14:48] LABS: Bilirubin,Urine Negative (Negative)
[2022-10-08 15:18] VITALS: BP 103/51; PULSE 61; RESP 20; TEMP 36.7; O2SAT 96
== END 2022-10-08 15:01 | disposition home or self-care (01) ==
PROVIDERS: Emergency Provider Emergency Medicine; PCP Nurse Practitioner Family
DX: R11.2 Nausea with vomiting, unspecified (principal); R19.7 Diarrhea, unspecified; R42 Dizziness and giddiness
CPT/HCPCS: 80053; 81001; 82272; 83690; 85025; 99283; G0328

== ENCOUNTER → 2023-01-14 11:37 | Outpatient (CLI) | payer MEDICARE, OTHER, SELFPAY | PROVIDERS: PCP Nurse Practitioner Family; Visit Provider Orthopaedic Surgery Adult Reconstructive Orthopaedic Surgery | DX: Z01.812 Encounter for preprocedural laboratory examination (principal); Z11.52 Encounter for screening for COVID-19 | CPT/HCPCS: C9803; U0003; U0005 ==

== ENCOUNTER 2023-03-08 14:00 | Outpatient (RCR) | payer MEDICARE, OTHER, SELFPAY | END 2023-03-22 10:25 | disposition home or self-care (01) | LOC: PT 14:00 | PROVIDERS: PCP Nurse Practitioner Family; Visit Provider Orthopaedic Surgery Adult Reconstructive Orthopaedic Surgery | DX: M16.11 Unilateral primary osteoarthritis, right hip (principal); Z96.641 Presence of right artificial hip joint | CPT/HCPCS: 97110; 97163; 97530 ==

== ENCOUNTER 2023-03-25 13:21 | Emergency (ER) | payer MEDICARE, OTHER, SELFPAY ==
[2023-03-25 13:30] VITALS: BP 110/62; PULSE 89; RESP 20; TEMP 36.6; O2SAT 96; BMI 37.5
--- NOTE | 2023-03-25 13:43 | EXP.UTC ---
Discharge Plan Disposition Patient Disposition: Home, Self-Care Condition: Good Prescriptions Prescriptions: New meclizine 25 mg tablet 25 mg PO TID Qty: 15 0RF No Action levothyroxine 100 MCG tablet 100 mcg PO DAILY Label Comments: TAKE 1 TABLET BY MOUTH EVERY MORNING ON AN EMPTY STOMACH meclizine 25 mg tablet 25 mg PO TID PRN (Reason: Vertigo) Qty: 15 0RF ondansetron 4 mg tablet,disintegrating 4 mg PO Q8H PRN (Reason: nausea and vomiting) Qty: 10 0RF Myrbetriq 25 mg tablet extended release 24 hr 25 mg PO DAILY Referrals Follow up/Referrals: Viviane So APRN [Primary Care Provider] - See instructions Activity Restrictions/Add. Instructions Additional Instructions/Restrictions: Take medication as prescribed Follow up with your Family Doctor if no improvement or any worsening of symptoms Straight to ER if any life threatening symptoms Clinical Impressions Clinical Impression: Vertigo Instructions Patient Instructions: Vertigo, DI for Vertigo, Meclizine Discharge ED Provider: Deonna Breaux [facility] [place] [place] General Stated complaint: Possible vertigo, dizzy Mode of Arrival: Ambulatory Source of Information: Patient Limitations: No Limitations Time Seen by Provider: 03/25/23 13:43 Description of Symptoms (Recalled from Triage Doc. by RN): PATIENT C/O DIZZINESS WITH NAUSEA THAT STARTED LAST NIGHT. SHE REPORTS HAVING VERTIGO BACK IN OCTOBER AND TODAY'S SYMPTOMS FEEL SIMILAR HEENT Symptoms (Recalled from RN notes): No Resp Symptoms (Recalled from RN notes): No Skin Symptoms (Recalled from RN notes): No MS Symptoms (Recalled from RN notes): No Functional Status (Recalled from RN notes): WNL History of Present Illness Provider Complaint: Patient states that she has had Vertigo in the past and is out of the Meclizine for it States that she started with vertigo last night that was worse with position change and felt like the world was spinning around her States that she has been on Medication recently for UTI and almost done with the medication and that is doing better but today she has still been having the vertigo and her ears feel full like it did last time she had a Vertigo flare Related Data Home Medications Medication Instructions Recorded Confirmed levothyroxine 100 mcg tablet 100 mcg PO DAILY THYROID 12/18/19 08/17/22 mirabegron 25 mg tablet,extended 25 mg PO DAILY bladder 08/09/22 08/17/22 release 24 hr (Myrbetriq) Previous Rx's Medication Instructions Recorded meclizine 25 mg tablet 25 mg PO TID PRN Vertigo #15 tabs 10/08/22 ondansetron 4 mg disintegrating 4 mg PO Q8H PRN nausea and 10/08/22 tablet vomiting #10 tabs meclizine 25 mg tablet 25 mg PO TID #15 tabs 03/25/23 Allergies Allergy/AdvReac Type Severity Reaction Status Date / Time No Known Allergies Allergy Verified 08/09/22 13:29 Worker's Comp Is this a Worker's Comp case?: No [facility] Disclaimer: The information contained in this section may have been updated after the patient was seen, as this information can be updated by other users. Medical History (Updated 03/25/23 @ 14:11 by Deonna Breaux APRN) Back pain H/O bladder problems Hyperlipidemia Hypothyroidism Surgical History (Updated 08/09/22 @ 13:34 by Ivis Pal RN) History of hysterectomy No significant past surgical history Family History (Updated 08/09/22 @ 13:32 by Ivis Pal RN) Other No significant family history Social History (Updated 08/09/22 @ 13:34 by Ivis Pal RN) Smoking Status: Never smoker alcohol intake: never current occupational status: retired Travel in the last 8 weeks: None housing: [place] ROS Obtained: Yes All systems reviewed & no additional complaints except as documented and Yes Systems reviewed as appropriate & no additional complaints except as documented Constitutional Constitutional: Reports system reviewed and no additional complaints
[2023-03-25 13:51] VITALS: BP 110/62; PULSE 89; RESP 20; TEMP 36.6; O2SAT 96
[2023-03-25 14:02] LABS: Apearance,Urine Clear (Clear); Color,Urine Amber (Yellow)
[2023-03-25 14:03] LABS: Bilirubin,Urine Negative (Negative); Blood, Urine Trace (Negative); Glucose,Urine (UA) Negative (Negative); Ketones,Urine Negative (Negative); PH,Urine 5.5 (5.0-8.5); Protein,Urine Negative (Negative); Specific Gravity, Urine >= 1.030 (1.005-1.030); UTC Leukocyte Esterase,Urine Negative (Negative); UTC Nitrate,Urine Negative (Negative); Urobilinogen,Urine 0.2 EU/dl (0.2)
== END 2023-03-25 14:14 | disposition home or self-care (01) ==
PROVIDERS: Emergency Provider Nurse Practitioner; PCP Nurse Practitioner Family
DX: R42 Dizziness and giddiness (principal); E03.9 Hypothyroidism, unspecified; E78.5 Hyperlipidemia, unspecified
CPT/HCPCS: 81003; 99212; 99214; G0463

== ENCOUNTER 2023-09-04 14:00 | Outpatient (RCR) | payer MEDICARE, OTHER, SELFPAY | END 2023-09-11 10:13 | disposition home or self-care (01) | LOC: PT 14:00 | PROVIDERS: PCP Nurse Practitioner Family; Visit Provider Orthopaedic Surgery Adult Reconstructive Orthopaedic Surgery | DX: M70.61 Trochanteric bursitis, right hip (principal); Z96.641 Presence of right artificial hip joint | CPT/HCPCS: 97010; 97014; 97035; 97110; 97140; 97163; 97164; 97530; G0283 ==

== ENCOUNTER 2023-11-18 13:04 | Emergency (ER) | payer MEDICARE, OTHER, SELFPAY ==
[2023-11-18 14:05] VITALS: BP 131/86; PULSE 74; RESP 19; TEMP 36.8; O2SAT 97; BMI 38.4
--- NOTE | 2023-11-18 14:13 | ED_ITS ---
Discharge Plan Disposition Patient Disposition: Home, Self-Care Condition: Good Prescriptions Prescriptions: New methocarbamol 500 mg tablet 500 mg PO BID PRN (Reason: muscle spasm) Qty: 10 0RF No Action levothyroxine 100 MCG tablet 100 mcg PO DAILY Patient Comments: TAKE 1 TABLET BY MOUTH EVERY MORNING ON AN EMPTY STOMACH Myrbetriq 25 mg tablet extended release 24 hr 25 mg PO DAILY Referrals Follow up/Referrals: Patsy Santos APRN [Primary Care Provider] - See instructions Activity Restrictions/Add. Instructions Additional Instructions/Restrictions: Make sure you are drinking plenty of fluids Take medication as prescribed Call your Family Doctor on Monday and get in for recheck of your urine and if you are still having pain Straight to ER if any life threatening symptoms Clinical Impressions Clinical Impression: Back pain Qualifiers: Back pain location: low back pain Chronicity: unspecified Back pain laterality: right Sciatica presence: without sciatica Qualified Code(s): M54.50 - Low back pain, unspecified Instructions Patient Instructions: Methocarbamol, Low Back Pain, DI for Muscle Strain Discharge ED Provider: Deonna Breaux [facility] General Stated complaint: right side pain Mode of Arrival: Ambulatory Source of Information: Patient Limitations: No Limitations Time Seen by Provider: 11/18/23 14:13 Description of Symptoms (Recalled from Triage Doc. by RN): PATIENT C/O RIGHT MIDDLE SIDE PAIN INTERMITTEN X 1 MONTH HEENT Symptoms (Recalled from RN notes): No Resp Symptoms (Recalled from RN notes): No Skin Symptoms (Recalled from RN notes): No MS Symptoms (Recalled from RN notes): No Functional Status (Recalled from RN notes): WNL History of Present Illness Provider Complaint: Patient states that she has been having pain in her right side of back on and off for about a month States that it would come and go States that pain is worse at times with sitting and when she lays down it does help to relieve the pain and ice helps States that the pain does not radiate anywhere or move and Denies urinary symptoms Related Data Home Medications Medication Instructions Recorded Confirmed levothyroxine 100 mcg tablet 100 mcg PO DAILY THYROID 12/18/19 11/18/23 mirabegron 25 mg tablet,extended 25 mg PO DAILY bladder 08/09/22 11/18/23 release 24 hr (Myrbetriq) Previous Rx's Medication Instructions Recorded methocarbamol 500 mg tablet 500 mg PO BID PRN muscle spasm #10 11/18/23 tabs Allergies Allergy/AdvReac Type Severity Reaction Status Date / Time No Known Allergies Allergy Verified 08/09/22 13:29 Worker's Comp Is this a Worker's Comp case?: No [facility] Disclaimer: The information contained in this section may have been updated after the patient was seen, as this information can be updated by other users. Medical History (Updated 11/18/23 @ 14:37 by Deonna Breaux APRN) Back pain H/O bladder problems Hyperlipidemia Hypothyroidism Surgical History (Updated 08/09/22 @ 13:34 by Ivis Pal RN) History of hysterectomy No significant past surgical history Family History (Updated 08/09/22 @ 13:32 by Ivis Pal RN) Other No significant family history Social History (Updated 08/09/22 @ 13:34 by Ivis Pal RN) Smoking Status: Never smoker alcohol intake: never current occupational status: retired Travel in the last 8 weeks: None housing: house ROS Obtained: Yes All systems reviewed & no additional complaints except as documented and Yes Systems reviewed as appropriate & no additional complaints except as documented Constitutional Constitutional: Reports system reviewed and no additional complaints, except as documented and Reports as per HPI ENT Ears, Nose, Mouth, and Throat: Reports system reviewed and no additional complaints, except as documented and Reports as per HPI Cardiovascular Cardiovascular: Reports system reviewed and no additional complaints, except as documented and Reports as per HPI Respiratory Respiratory: Reports system reviewed and no additional complaints, except as documented and Reports as per HPI Gastrointestinal Gastrointestingal: Reports system reviewed and no additional complaints, except as documented and as per HPI; Denies abdominal pain Genitourinary Female Genitourinary: Reports system reviewed and no additional complaints, except as documented, Reports as per HPI, Denies dysuria, Denies urinary frequency and Denies urinary urgency Musculoskeletal Musculoskeletal: Reports system reviewed and no additional complaints, except as documented, Reports as per HPI and Reports back pain (right side) Physical Exam General General appearance: alert and in no apparent distress ENT ENT exam: Present mucous membranes moist Respiratory Respiratory exam: Present normal lung sounds bilaterally; Absent respiratory distress or wheezes Cardiovascular Cardiovascular exam: Present regular rate, normal rhythm and normal heart sounds Abdominal Exam Abdominal exam: Present soft and normal bowel sounds; Absent distention or tenderness Back Exam Back exam: Present tenderness Back 1 view image: 1. reports tenderness with palpation and pain worse with certain ways she sits relieved with laying and ice denies radiation of pain and denies loss of control of bowel or bladder Neurological Exam Neurological exam: Present alert, oriented X3 and normal gait Medical Decision Making Blaze Inquiry Pt receiving controlled substance: No Blaze was queried for this patient: No Vital Signs: 11/18/23 14:05 Temperature 98.3 F Temperature Source Oral Pulse Rate [Left Brachial] 74 Respiratory Rate 19 Blood Pressure [Left Arm] 131/86 Blood Pressure Mean [Left Arm] 101 Blood Pressure Source [Left Arm] Automatic Cuff Blood Pressure Position [Left Arm] Sitting 02 Sat by Pulse Oximetry 97 Oxygen Delivery Method Room Air Lab Data Lab results reviewed: Yes I reviewed the patient's lab results. Medical Decision Narrative: Patient complaining of right side low back pain from just below ribs straight down to hip area Denies known injury UA showed moderate blood but patient denies pain with urination, radiation of pain or hx of kidney stones and states that pain in back is worse with movement Discussed transfer to the ED for furhter work up and evaluation and declined at this time, patient agreed to try short course of muscle relaxer and will call PCP on Monday to get follow up with PCP for recheck of urine and given strict return precautions to the ED and patient agreed
[2023-11-18 14:34] VITALS: BP 131/86; PULSE 74; RESP 19; TEMP 36.8; O2SAT 97
[2023-11-18 14:35] LABS: Apearance,Urine Cloudy (Clear); Bilirubin,Urine 1+ (Negative); Blood, Urine 2+ (Negative); Color,Urine Dark Yellow (Yellow); Glucose,Urine (UA) Negative (Negative); Ketones,Urine 15 (Negative); Protein,Urine Negative (Negative); Urobilinogen,Urine 0.2 EU/dl (0.2)
[2023-11-18 14:36] LABS: UTC Leukocyte Esterase,Urine Negative (Negative); UTC Nitrate,Urine Negative (Negative)
== END 2023-11-18 14:43 | disposition home or self-care (01) ==
PROVIDERS: Emergency Provider Nurse Practitioner; PCP Nurse Practitioner
DX: M54.50 Low back pain, unspecified (principal); B96.89 Other specified bacterial agents as the cause of diseases classified elsewhere; E03.9 Hypothyroidism, unspecified; E78.5 Hyperlipidemia, unspecified
CPT/HCPCS: 81003; 87086; 99212; 99214; G0463

== ENCOUNTER 2023-11-25 13:42 | Emergency (ER) | payer MEDICARE, OTHER, SELFPAY ==
[2023-11-25 13:52] VITALS: BP 155/91; PULSE 96; RESP 20; TEMP 36.9; O2SAT 97; BMI 41.0
--- NOTE | 2023-11-25 14:26 | CT_ITS ---
PROCEDURE INFORMATION: Exam: CT Abdomen And Pelvis With Contrast Exam date and time: 11/25/2023 2:59 PM Age: 73 years old Clinical indication: Abdominal pain; Flank; Right; Additional info: R flank pain, hematuria, vomiting TECHNIQUE: Imaging protocol: Computed tomography of the abdomen and pelvis with contrast. Radiation optimization: All CT scans at this facility use at least one of these dose optimization techniques: automated exposure control; mA and/or kV adjustment per patient size (includes targeted exams where dose is matched to clinical indication); or iterative reconstruction. Contrast material: ISOVUE; Contrast volume: 75 ml; Contrast route: IV; COMPARISON: CR XR HIP RT 2-3V W/PELVIS 10/19/2021 1:04 PM FINDINGS: Lungs: Bibasilar atelectasis versus parenchymal scarring. Liver: hepatic steatosis Gallbladder and bile ducts: Normal. No calcified stones. No ductal dilation. Pancreas: Pancreas unremarkable Spleen: The spleen is unremarkable. Adrenal glands: Mild thickening of the adrenal glands bilaterally. Appendix not visualized. Kidneys and ureters: No hydronephrosis. Stomach and bowel: Colonic diverticulosis. No evidence of diverticulitis. Appendix: See Adrenal glands finding. Intraperitoneal space: Unremarkable. No free air. No significant fluid collection. Vasculature: Scattered regions of atherosclerotic vascular calcification within the abdominal aorta and common iliac arteries. Lymph nodes: Unremarkable. No enlarged lymph nodes. Urinary bladder: Unremarkable as visualized. Reproductive: Unremarkable as visualized. Bones/joints: Lumbar spondylosis Soft tissues: Unremarkable. Other findings: Arthroplasty artifact IMPRESSION: No evidence of acute abnormality.
--- NOTE | 2023-11-25 14:28 | HMH.EDGENADL ---
Discharge Plan Disposition Patient Disposition: Home, Self-Care Condition: Good Prescriptions Prescriptions: New meloxicam 7.5 mg tablet 7.5 mg PO DAILY 5 Days Qty: 5 0RF No Action levothyroxine 100 MCG tablet 100 mcg PO DAILY Patient Comments: TAKE 1 TABLET BY MOUTH EVERY MORNING ON AN EMPTY STOMACH Myrbetriq 25 mg tablet extended release 24 hr 25 mg PO DAILY methocarbamol 500 mg tablet 500 mg PO BID PRN (Reason: muscle spasm) Qty: 10 0RF Referrals Follow up/Referrals: Patsy Santos APRN [Primary Care Provider] - See instructions Activity Restrictions/Add. Instructions Additional Instructions/Restrictions: Please return to the emergency department if you experience any new or worsening symptoms. Clinical Impressions Clinical Impression: Back pain, sacroiliac Instructions Patient Instructions: Sacroiliac Joint Pain, DI Sacroiliac Joint Dysfunction Discharge ED Provider: Bautista Nava Adult HPI <Ambrocio Swift MD - Last Filed: 11/25/23 14:55> General Chief complaint: PAIN Stated complaint: sharp pain in right side nausea Time Seen by Provider: 11/25/23 14:00 Mode of Arrival: Ambulatory Source of Information: Patient Limitations: No Limitations Description of Symptoms (Recalled from ER Triage Doc. by RN): r sided pain. currently on abx for UTI History of Present Illness HPI narrative: Patient is 73-year-old female with past medical history of sciatica who presents to the emergency department for evaluation of flank pain. History is obtained by patient at bedside, patient has had flank pain that is acute over the last 1 to 2 weeks patient has been diagnosed urinary tract infection and is on a course of Bactrim, went to PCP and was diagnosed with muscle strain. Patient denies trauma. Due to persistent symptoms she presents here for continued evaluation. Related Data Home Medications Medication Instructions Recorded Confirmed levothyroxine 100 mcg tablet 100 mcg PO DAILY THYROID 12/18/19 11/18/23 mirabegron 25 mg tablet,extended 25 mg PO DAILY bladder 08/09/22 11/18/23 release 24 hr (Myrbetriq) Previous Rx's Medication Instructions Recorded methocarbamol 500 mg tablet 500 mg PO BID PRN muscle spasm #10 11/18/23 tabs meloxicam 7.5 mg tablet 7.5 mg PO DAILY 5 days #5 tabs 11/25/23 Allergies Allergy/AdvReac Type Severity Reaction Status Date / Time No Known Allergies Allergy Verified 08/09/22 13:29 PFSH <Ambrocio Swift MD - Last Filed: 11/25/23 14:55> [facility] Disclaimer: The information contained in this section may have been updated after the patient was seen, as this information can be updated by other users. Medical History (Updated 11/25/23 @ 16:21 by Bautista Nava MD) Back pain H/O bladder problems Hyperlipidemia Hypothyroidism Surgical History (Updated 08/09/22 @ 13:34 by Ivis Pal, RN) History of hysterectomy No significant past surgical history Family History (Updated 08/09/22 @ 13:32 by Ivis Pal, RN) Other No significant family history Social History (Updated 08/09/22 @ 13:34 by Ivis Pal, RN) Smoking Status: Never smoker alcohol intake: never current occupational status: retired Travel in the last 8 weeks: None housing: house <Ambrocio Swift MD - Last Filed: 11/25/23 14:55> ROS Obtained: Yes Systems reviewed as appropriate & no additional complaints except as documented Physical Exam <Ambrocio Swift MD - Last Filed: 11/25/23 14:55> General General appearance: alert and in no apparent distress Head Head exam: atraumatic and normocephalic Eye Eye exam: Present PERRL and EOMI ENT ENT exam: Present mucous membranes moist Neck Neck exam: Present normal inspection Chest Chest inspection: Present normal inspection and symmetric chest wall rise Respiratory Respiratory exam: Present normal lung sounds bilaterally; Absent respiratory distress Cardiovascular Cardiovascular exam: Present regular rate and normal rhythm Abdominal Exam Abdominal exam: Present soft; Absent tenderness Extremities Exam Extremities exam: Present normal inspection Neurological Exam Neurological exam: Present alert Psychiatric Psychiatric exam: Present normal affect Skin Skin exam: Present warm and dry Medical Decision Making <Ambrocio Swift MD - Last Filed: 11/25/23 14:55> Blaze Inquiry Pt receiving controlled substance: No Vital Signs: 11/25/23 13:52 11/25/23 16:24 Temperature 98.4 F 98.4 F Temperature Source Oral Oral Pulse Rate 90 Pulse Rate [Right Radial] 96 H Respiratory Rate 20 18 Blood Pressure 119/93 H Blood Pressure [Right Arm] 155/91 H Blood Pressure Mean [Right Arm] 112 Blood Pressure Source Automatic Cuff Blood Pressure Position Sitting 02 Sat by Pulse Oximetry 97 Oxygen Delivery Method Room Air Room Air Lab Data Lab Results 11/25/23 13:50: Urine Color Yellow, Urine Appearance Clear, Urine pH 5.5, Ur Specific [place] >= 1.030, Urine Protein Negative, Urine Glucose (UA) Negative, Urine Ketones 1+, Urine Blood 1+, Urine Nitrate Negative, Urine Bilirubin Negative, Urine Urobilinogen 0.2, Ur Leukocyte Esterase Negative, Urine RBC 3-5, Urine WBC Occasional, Ur Squamous Epith Cells 5-10, Urine Bacteria Trace, Urine Mucus 1+ 11/25/23 13:57: WBC 10.0, RBC 4.46, Hgb 13.6, Hct 41.2, MCV 92.4, MCH 30.5, MCHC 33.0, RDW 13.1, Plt Count 366, MPV 11.0 H, Neut % (Auto) 71.7, Lymph % (Auto) 21.0, [place] % (Auto) 5.5, Eos % (Auto) 1.1, Baso % (Auto) 0.5, Neut # (Auto) 7.2, Lymph # (Auto) 2.1, [place] # (Auto) 0.6, Eos # (Auto) 0.1, Baso # (Auto) 0.1, Sodium 137, Potassium 4.3, Chloride 104, Carbon Dioxide 26, Anion Gap 11.3, BUN 14, Creatinine 0.80, Estimated Creat Clear 73, Estimated GFR 70, Est GFR ( Amer) 85, Glucose 141 H, Calcium 9.0, Total Bilirubin 0.6, AST 30, ALT 18, Alkaline Phosphatase 82, Total Protein 7.2, Albumin 4.2, Globulin 3.0, Albumin/Globulin Ratio 1.4, Lipase 33 11/25/23 14:36: SARS-CoV-2 (PCR) Not detected, Influenza A Untype (PCR) Not detected, Influenza Type B (PCR) Not detected 11/25/23 13:57 11/25/23 13:57 Orders (Tests/Meds): ED MEDICATIONS Discontinued Medications Generic Name Dose Route Start Last Admin Trade Name Freq PRN Reason Stop Dose Admin Acetaminophen 1,000 mg 11/25/23 14:27 11/25/23 14:33 Acetaminophen 1,000mg/100ml Vial IV 11/25/23 14:28 1,000 mg ONCE ONE Administration Lactated Ringer's 1,000 mls @ 999 mls/hr 11/25/23 14:31 11/25/23 15:04 Lactated Ringer's 1000 Ml Bag IV 11/25/23 15:31 999 mls/hr .Q1H1M ONE Administration Iopamidol 75 ml 11/25/23 14:55 11/25/23 14:57 Iopamidol-370 (76%);100ml Bottle IV 11/25/23 14:56 75 ml ONCE ONE Administration Ketorolac Tromethamine 30 mg 11/25/23 14:27 11/25/23 14:33 Ketorolac 30mg/Ml Vial IV 11/25/23 14:28 30 mg ONCE ONE Administration Ondansetron HCl 4 mg 11/25/23 14:27 11/25/23 14:33 Ondansetron 4mg/2ml Vial IV 11/25/23 14:28 4 mg ONCE ONE Administration Sodium Chloride 10 ml 11/25/23 14:55 11/25/23 14:57 Sodium Chloride 0.9% 10ml Syr (Rad Only) IV 11/25/23 14:56 10 ml ONCE ONE Administration ORDERS Category Date Time Status CT abdomen pelvis w con Stat Cat Scan 11/25/23 14:26 Completed CBC w/Auto Diff [Complete Blood Count Auto Diff] Stat Lab 11/25/23 13:57 Completed CMP [Comprehensive Metabolic Panel] Stat Lab 11/25/23 13:57 Completed Lipase Stat Lab 11/25/23 13:57 Completed Rapid PCR Covid and Flu A/B Stat Lab 11/25/23 14:36 Completed UA [Urinalysis and Microscopic] Stat Lab 11/25/23 13:50 Completed Medical Decision Narrative: In summary patient is 73-year-old female past medical history described above who presents emergency department for evaluation of flank pain. Patient is hemodynamically stable nontoxic-appearing upon arrival, afebrile. Differential diagnosis includes ureterolithiasis, renal mass, among others. Workup will be conducted with hematologic labs, CT abdomen pelvis IV contrast, urinalysis. Initial interventions include Zofran, Tylenol, Toradol, crystalloid bolus. Initial workup reviewed by me, hematologic labs are nonactionable, no LAURA, urinalysis interpreted by me and not consistent with infection, 1+ blood. CT imaging and repeat assessment pending at time of transition of care to the oncoming physician, Dr. Nava. <Bautista Nava MD - Last Filed: 11/26/23 23:25> Vital Signs: 11/25/23 13:52 11/25/23 16:24 Temperature 98.4 F 98.4 F Temperature Source Oral Oral Pulse Rate 90 Pulse Rate [Right Radial] 96 H Respiratory Rate 20 18 Blood Pressure 119/93 H Blood Pressure [Right Arm] 155/91 H Blood Pressure Mean [Right Arm] 112 Blood Pressure Source Automatic Cuff Blood Pressure Position Sitting 02 Sat by Pulse Oximetry 97 Oxygen Delivery Method Room Air Room Air Lab Data Lab Results 11/25/23 13:50: Urine Color Yellow, Urine Appearance Clear, Urine pH 5.5, Ur Specific [place] >= 1.030, Urine Protein Negative, Urine Glucose (UA) Negative, Urine Ketones 1+, Urine Blood 1+, Urine Nitrate Negative, Urine Bilirubin Negative, Urine Urobilinogen 0.2, Ur Leukocyte Esterase Negative, Urine RBC 3-5, Urine WBC Occasional, Ur Squamous Epith Cells 5-10, Urine Bacteria Trace, Urine Mucus 1+ 11/25/23 13:57: WBC 10.0, RBC 4.46, Hgb 13.6, Hct 41.2, MCV 92.4, MCH 30.5, MCHC 33.0, RDW 13.1, Plt Count 366, MPV 11.0 H, Neut % (Auto) 71.7, Lymph % (Auto) 21.0, [place] % (Auto) 5.5, Eos % (Auto) 1.1, Baso % (Auto) 0.5, Neut # (Auto) 7.2, Lymph # (Auto) 2.1, [place] # (Auto) 0.6, Eos # (Auto) 0.1, Baso # (Auto) 0.1, Sodium 137, Potassium 4.3, Chloride 104, Carbon Dioxide 26, Anion Gap 11.3, BUN 14, Creatinine 0.80, Estimated Creat Clear 73, Estimated GFR 70, Est GFR ( Amer) 85, Glucose 141 H, Calcium 9.0, Total Bilirubin 0.6, AST 30, ALT 18, Alkaline Phosphatase 82, Total Protein 7.2, Albumin 4.2, Globulin 3.0, Albumin/Globulin Ratio 1.4, Lipase 33 11/25/23 14:36: SARS-CoV-2 (PCR) Not detected, Influenza A Untype (PCR) Not detected, Influenza Type B (PCR) Not detected Orders (Tests/Meds): ED MEDICATIONS Discontinued Medications Generic Name Dose Route Start Last Admin Trade Name Freq PRN Reason Stop Dose Admin Acetaminophen 1,000 mg 11/25/23 14:27 11/25/23 14:33 Acetaminophen 1,000mg/100ml Vial IV 11/25/23 14:28 1,000 mg ONCE ONE Administration Lactated Ringer's 1,000 mls @ 999 mls/hr 11/25/23 14:31 11/25/23 15:04 Lactated Ringer's 1000 Ml Bag IV 11/25/23 15:31 999 mls/hr .Q1H1M ONE Administration Iopamidol 75 ml 11/25/23 14:55 11/25/23 14:57 Iopamidol-370 (76%);100ml Bottle IV 11/25/23 14:56 75 ml ONCE ONE Administration Ketorolac Tromethamine 30 mg 11/25/23 14:27 11/25/23 14:33 Ketorolac 30mg/Ml Vial IV 11/25/23 14:28 30 mg ONCE ONE Administration Ondansetron HCl 4 mg 11/25/23 14:27 11/25/23 14:33 Ondansetron 4mg/2ml Vial IV 11/25/23 14:28 4 mg ONCE ONE Administration Sodium Chloride 10 ml 11/25/23 14:55 11/25/23 14:57 Sodium Chloride 0.9% 10ml Syr (Rad Only) IV 11/25/23 14:56 10 ml ONCE ONE Administration ORDERS Category Date Time Status CT abdomen pelvis w con Stat Cat Scan 11/25/23 14:26 Completed CBC w/Auto Diff [Complete Blood Count Auto Diff] Stat Lab 11/25/23 13:57 Completed CMP [Comprehensive Metabolic Panel] Stat Lab 11/25/23 13:57 Completed Lipase Stat Lab 11/25/23 13:57 Completed Rapid PCR Covid and Flu A/B Stat Lab 11/25/23 14:36 Completed UA [Urinalysis and Microscopic] Stat Lab 11/25/23 13:50 Completed Medical Decision Narrative: In summary patient is 73-year-old female past medical history described above who presents emergency department for evaluation of flank pain. Patient is hemodynamically stable nontoxic-appearing upon arrival, afebrile. Differential diagnosis includes ureterolithiasis, renal mass, among others. Workup will be conducted with hematologic labs, CT abdomen pelvis IV contrast, urinalysis. Initial interventions include Zofran, Tylenol, Toradol, crystalloid bolus. Initial workup reviewed by me, hematologic labs are nonactionable, no LAURA, urinalysis interpreted by me and not consistent with infection, 1+ blood. CT imaging and repeat assessment pending at time of transition of care to the oncoming physician, Dr. Nava. Bautista Nava MD: I assumed care of this patient from the previous emergency medicine physician. CT imaging reveals no acute abnormality. Patient has lipase within normal limits, as well as hemoglobin and creatinine stable from baseline of both within normal limits. Patient reports improvement of symptoms upon repeat evaluation. He is deemed stable for discharge at this time. Return precautions were given. Critical Care <Ambrocio Swift MD - Last Filed: 11/25/23 14:55> Critical Care Time Critical Care Time: No
[2023-11-25] MEDS: KETOROLAC 30MG/ML VIAL 30 MG IV (14:33)
[2023-11-25] MEDS: ONDANSETRON 4MG/2ML VIAL 4 MG IV (14:33)
[2023-11-25] MEDS: ACETAMINOPHEN 1,000MG/100ML VIAL 1000 MG IV (14:33)
[2023-11-25 14:39] LABS: Chloride 104 mmol/L (98-107); Potassium 4.3 mmoL/L (3.5-5.1); Sodium 137 mmol/L (136-145)
[2023-11-25 14:41] LABS: Microscopic, Urine URINE MICROSCOPIC (MICROSCOPIC)
[2023-11-25 14:41] LABS: Coronavirus 19, PCR Not Detected (NotDetected); Influenza A, PCR Not Detected (NotDetected); Influenza B, PCR Not Detected (NotDetected)
[2023-11-25 14:42] LABS: Alanine Aminotransferase 18 U/L (12-78); Albumin Level 4.2 g/dl (3.5-5.0); Albumin/Globulin Ratio 1.4 (1.1-1.8); Alkaline Phosphatase 82 U/L (38-126); Anion Gap 11.3 mEq/L (5-15); Aspartate Amino Transferase 30 U/L (14-36); Bilirubin,Total 0.6 mg/dl (0.2-1.3); Blood Urea Nitrogen 14 mg/dl (7-17); Carbon Dioxide 26 mmol/L (22.0-30.0); Creatinine Clearance Estimated 73 mL/min (50-200); Estimated Glomerular Filt Rate 70 ml/min (>60); GFR (African American) 85 ML/MIN (>60); Glucose 141 mg/dl (74-100); Lipase 33 U/L (23-300); Total Protein,Serum 7.2 g/dl (6.3-8.2)
[2023-11-25 14:43] LABS: Appearance,Urine CLEAR (Clear); Blood, Urine 1+ (Negative); Color,Urine YELLOW (Yellow); Glucose,Urine (UA) Negative (Negative); Ketones,Urine 1+ (Negative); Leukocyte Esterase,Urine Negative (Negative); Nitrate,Urine Negative (Negative); PH,Urine 5.5 (5.0-8.5); Protein,Urine Negative (Negative); Specific Gravity, Urine >= 1.030 (1.005-1.030); Urobilinogen,Urine 0.2 EU/dl (0.2)
--- NOTE | 2023-11-25 14:51 | PC.NURSE ---
Pt gone to RAD via wheelchair
[2023-11-25 14:52] LABS: Bilirubin,Urine Negative (Negative)
[2023-11-25] MEDS: SODIUM CHLORIDE 0.9% 10ML SYR (RAD ONLY) 10 ML IV (14:57)
[2023-11-25] MEDS: IOPAMIDOL-370 (76%);100ML BOTTLE 75 ML IV (14:57)
[2023-11-25 15:04] LABS: Bacteria,Urine Trace /lpf; Mucus,Urine 1+ /lpf; WBC,Urine Occasional #/hpf (0-3)
[2023-11-25] MEDS: LACTATED RINGERS 1000ML 1,000 ML 999 ML IV (15:04)
--- NOTE | 2023-11-25 16:09 | PC.NURSE ---
DR LEGER AT BEDSIDE
[2023-11-25 16:24] VITALS: BP 119/93; PULSE 90; RESP 18; TEMP 36.9; O2SAT 97
[2023-11-25 18:53] LABS: Hematocrit 41.2 % (37.0-47.0); Hemoglobin 13.6 g/dL (12.2-16.2); Mean Corpuscular Volume 92.4 fl (81-99); Red Blood Count 4.46 M/mm3 (4.20-5.40)
[2023-11-25 18:54] LABS: Basophils % 0.5 % (0.1-2.0); Eosinophils % 1.1 % (0.1-12.0); Mean Corpuscular Hemoglobin 30.5 pg (27.0-31.2); Monocytes % 5.5 % (1.7-9.3); Neutrophils % 71.7 % (37.0-80.0); Platelet Count 366 K/mm3 (142-424); Red Cell Distribution Width 13.1 % (11.5-17.5)
[2023-11-25 18:55] LABS: Basophils # 0.1 K/mm3 (0-0.2); Eosinophils # 0.1 K/mm3 (0.0-0.4); Lymphocytes # 2.1 K/mm3 (0.7-4.5); Monocytes # 0.6 K/mm3 (0.1-1.0); Neutrophils # 7.2 K/mm3 (1.8-7.8)
== END 2023-11-25 16:29 | disposition home or self-care (01) ==
PROVIDERS: Emergency Medicine; Emergency Provider Emergency Medicine; PCP Nurse Practitioner
DX: M53.3 Sacrococcygeal disorders, not elsewhere classified (principal); R11.0 Nausea; E03.9 Hypothyroidism, unspecified; E78.5 Hyperlipidemia, unspecified; M54.59 Other low back pain
CPT/HCPCS: 74177; 80053; 81001; 83690; 85025; 87636; 96361; 96374; 96375; 99284; J0131; J2405; Q9967

== ENCOUNTER 2024-01-02 07:56 | Outpatient (CLI) | payer MEDICARE, OTHER, SELFPAY ==
--- NOTE | 2024-01-02 08:48 | MR_ITS ---
FINAL REPORT CLINICAL HISTORY: RIGHT SIDED ABDOMINAL PAIN COMPARISON: CT abdomen pelvis 11/25/2023 FINDINGS: Multiplanar MR imaging of the abdomen was performed without and with contrast. Images of the liver reveal no evidence of mass. There is no evidence of biliary ductal dilatation. The gallbladder is present. There is no localized signal abnormality within the gallbladder. There is no evidence of pericholecystic fluid. The kidneys enhance in a normal fashion. No evidence of renal mass. No other mass or adenopathy is identified. No abnormal fluid collection is seen. No abnormal contrast enhancement is seen on the postcontrast images. IMPRESSION: No mass or abnormal contrast enhancement identified. Reviewed, Interpreted and Dictated by Christian Singh MD Transcribed by Doretha Zarco Authenticated and . [facility]
--- NOTE | 2024-01-02 08:48 | MR_ITS ---
FINAL REPORT CLINICAL HISTORY: RIGHT SIDED ABDOMINAL PAIN X3 WEEKS. COMPARISON: CT abdomen and pelvis 11/25/2023 FINDINGS: Multiplanar MR imaging was obtained of the pelvis with and without contrast. Exam quality is significantly degraded by extensive magnetic artifact from right hip prosthesis. The bony structures are intact without mass, fracture or bone marrow edema. The musculature is intact. There are no masses or abnormal fluid collections. The urinary bladder is incompletely distended. There is no abnormal contrast enhancement. IMPRESSION: No mass, fluid collection or abnormal contrast enhancement. Reviewed, Interpreted and Dictated by Christian Singh MD Transcribed by Doretha Zarco Authenticated and . [facility]
[2024-01-02] MEDS: SODIUM CHLORIDE 0.9% 10ML SYR (RAD ONLY) 10 ML IV (09:54)
[2024-01-02] MEDS: GADOTERIDOL INJ 17ML SYRINGE 19 ML IV (09:55)
[2024-01-02] MEDS: SODIUM CHLORIDE 0.9% 50ML BAG 30 ML IV (09:55)
== END 2024-01-02 23:59 ==
LOC: RAD 07:57
PROVIDERS: PCP Nurse Practitioner; Visit Provider Nurse Practitioner
DX: R10.9 Unspecified abdominal pain (principal)
CPT/HCPCS: 72197; 74183; A9576

== ENCOUNTER 2024-04-23 09:43 | Outpatient (CLI) | payer MEDICARE, OTHER, SELFPAY ==
--- NOTE | 2024-04-23 09:50 | XR_ITS ---
FINAL REPORT CLINICAL HISTORY: Lt Knee Pain states possibly getting knee injections COMPARISON: None FINDINGS: LEFT KNEE: Three views of the left knee were obtained. There is no acute fracture or dislocation. There is mild degenerative change. A small joint effusion is noted. Soft tissues are unremarkable. IMPRESSION: Mild degenerative change and small joint effusion. Reviewed, Interpreted and Dictated by Caleb Ornelas III, MD Transcribed by Doretha Zarco Authenticated and . [facility]
== END 2024-04-23 23:59 | disposition home or self-care (01) ==
LOC: RAD 09:44
PROVIDERS: PCP Nurse Practitioner; Visit Provider Physician Assistant
DX: M25.562 Pain in left knee (principal)
CPT/HCPCS: 73562

== ENCOUNTER 2024-06-03 08:22 | Outpatient (CLI) | payer MEDICARE, OTHER, SELFPAY ==
--- NOTE | 2024-06-03 08:25 | XR_ITS ---
FINAL REPORT CLINICAL HISTORY: Right Hip Pain COMPARISON: 10/19/2021 FINDINGS: RIGHT HIP Two views of the right hip interval right hip arthroplasty. The hardware is unremarkable. There is no acute fracture or dislocation. The joint spaces appear normal. The visualized bony structures are well aligned. No soft tissue abnormality is seen. IMPRESSION: No acute bony abnormality. Reviewed, Interpreted and Dictated by Charli Villatoro MD Transcribed by Doretha Zarco Authenticated and [facility]
== END 2024-06-03 23:59 | disposition home or self-care (01) ==
LOC: RAD 08:23
PROVIDERS: PCP Nurse Practitioner; Visit Provider Physician Assistant
DX: M25.551 Pain in right hip (principal)
CPT/HCPCS: 73502

== ENCOUNTER 2024-07-10 13:06 | Outpatient (CLI) | payer MEDICARE, OTHER, SELFPAY ==
--- NOTE | 2024-07-10 13:07 | MR_ITS ---
FINAL REPORT CLINICAL HISTORY: Severe Vertigo COMPARISON: None FINDINGS: Multiplanar MR imaging of the brain was performed without and with contrast. The midline structures appear intact. There is no evidence of Chiari malformation. There are small scattered foci of abnormal signal in the deep white matter bilaterally. There are no foci of cortical signal abnormalities. On diffusion-weighted images there is no evidence of restricted diffusion. There is no abnormal enhancement. The visualized paranasal sinuses demonstrate mild mucoperiosteal thickening in the ethmoid air cells and inferior right mastoid air cells. The seventh and eighth nerve root complexes are intact. IMPRESSION: Mild changes of chronic ethmoid and right mastoid sinusitis. Mild changes of chronic microvascular ischemia. Reviewed, Interpreted and Dictated by Christian Singh MD Transcribed by Doretha Zarco Authenticated and . [facility]
[2024-07-10] MEDS: GADOTERIDOL INJ 20ML SYRINGE 19 ML IV (14:01)
[2024-07-10] MEDS: SODIUM CHLORIDE 0.9% 10ML SYR (RAD ONLY) 10 ML IV (14:01)
== END 2024-07-10 23:59 | disposition home or self-care (01) ==
LOC: RAD 13:07
PROVIDERS: PCP Nurse Practitioner; Visit Provider Specialist
DX: R42 Dizziness and giddiness (principal)
CPT/HCPCS: 70553; A9576

== ENCOUNTER 2024-10-17 09:25 | Outpatient (POV) | payer MEDICARE, OTHER, SELFPAY | END 2024-10-17 23:59 | disposition home or self-care (01) | LOC: SC 09:27 | PROVIDERS: Visit Provider Specialist/Technologist | DX: Z00.00 Encounter for general adult medical examination without abnormal findings (principal) ==

== ENCOUNTER 2024-10-29 12:28 | Outpatient (CLI) | payer MEDICARE, OTHER, SELFPAY ==
--- NOTE | 2024-10-29 13:06 | ECG_ITS ---
APPROVED REPORT Exam: Resting ECG HR:75 bpm ECG Measurements Heart Rate 75 AXES IN 158 P 63 QRSd 85 QRS 56 QT 369 T 56 QTc 397 Conclusion SINUS RHYTHM NORMAL ECG UNCONFIRMED REPORT Electronically signed by : Jalen Steven MD 10/29/2024 14:35:25
[2024-10-29 13:18] VITALS: BMI 40.4
[2024-10-29 13:36] LABS: Basophils # 0.1 K/mm3 (0-0.2); Basophils % 0.9 % (0.1-2.0); Eosinophils # 0.2 K/mm3 (0.0-0.4); Eosinophils % 2.3 % (0.1-12.0); Hemoglobin 12.9 g/dL (12.2-16.2); Lymphocytes # 2.4 K/mm3 (0.7-4.5); Lymphocytes % 36.3 % (10-50); Mean Corpuscular HGB Conc 32.3 g/dL (31.8-35.4); Mean Corpuscular Hemoglobin 31.5 pg (27.0-31.2); Mean Corpuscular Volume 97.4 fl (81-99); Mean Platelet Volume 7.9 fl (7.4-10.4); Monocytes # 0.4 K/mm3 (0.1-1.0); Monocytes % 6.7 % (1.7-9.3); Neutrophils # 3.5 K/mm3 (1.8-7.8); Neutrophils % 53.8 % (37.0-80.0); Platelet Count 296 K/mm3 (142-424); Red Blood Count 4.11 M/mm3 (4.20-5.40); Red Cell Distribution Width 13.4 % (11.5-17.5); White Blood Count 6.5 K/mm3 (4.8-10.8)
[2024-10-29 14:09] LABS: Anion Gap 9.2 mEq/L (5-15); Blood Urea Nitrogen 15 mg/dl (7-17); Calcium 8.9 mg/dl (8.4-10.2); Carbon Dioxide 29 mmol/L (22.0-30.0); Chloride 102 mmol/L (98-107); Creatinine Clearance Estimated 73 mL/min (50-200); Estimated Glomerular Filt Rate 70 ml/min (>60); GFR (African American) 84 ML/MIN (>60); Glucose 95 mg/dl (74-100); Potassium 4.2 mmoL/L (3.5-5.1); Sodium 136 mmol/L (136-145)
== END 2024-10-29 23:59 | disposition home or self-care (01) ==
LOC: PREOP 12:30
PROVIDERS: Nurse Anesthetist, Certified Registered; PCP Nurse Practitioner; Visit Provider Orthopaedic Surgery
DX: Z01.810 Encounter for preprocedural cardiovascular examination (principal); M25.572 Pain in left ankle and joints of left foot
CPT/HCPCS: 80048; 85025; 93005

== ENCOUNTER 2024-12-02 06:01 | Day surgery (SDC) | payer MEDICARE, OTHER, SELFPAY ==
--- NOTE | 2024-11-15 11:18 | SUR.PREOP ---
attempted to call patient to preop. no answer, but detailed message left with callback information
[2024-11-15 11:27] VITALS: BMI 42.0
[2024-12-02] VITALS (15 sets, daily range): BP systolic 121–165; BP diastolic 59–107; PULSE 70–97; RESP 12–18; TEMP 36.3–43; O2SAT 89–98
[2024-12-02] MEDS: LACTATED RINGERS 1000ML 1,000 ML 100 ML IV (06:36)
--- NOTE | 2024-12-02 06:58 | P.PNANES_ITS ---
[facility] Disclaimer: The information contained in this section may have been updated after the patient was seen, as this information can be updated by other users. Medical History Perforation of right tympanic membrane Sensorineural hearing loss (SNHL) of both ears Hypertrophy of tonsil Fluid level behind tympanic membrane Sinusitis Chronic sinusitis History of radiculopathy Back pain H/O bladder problems Hyperlipidemia Hypothyroidism Surgical History H/O tubal ligation History of knee surgery History of removal of cyst History of carpal tunnel release History of joint replacement History of cataract extraction History of hysterectomy Family History Other Cancer Diabetes Heart attack Hypertension Social History (Updated 12/02/24 @ 06:23 by Melany Robin RN) Smoking Status: Former smoker how long ago did patient quit smokin alcohol intake: never substance use type: denies use current occupational status: retired Travel in the last 8 weeks: None housing: house marital status: number of children: 3 Have you lived/traveled outside [place] in past 30 days?: No Contact w/someone who lives/traveled outside US past 30 days?: No Exposure to someone with infectious disease in past 14 days?: No Do you have a fever (greater than 100.4 F or 38 C)?: No Have you tested positive for COVID-19: No Exposed to someone with COVID-19 in past 14 days?: No Do you have a sore throat?: No Do you have a cough?: No Do you have any weakness?: No Are you experiencing any nausea/vomitting?: No Do you have any diarrhea?: No Are you experiencing any unusual bleeding?: No Do you have any muscle aches/pain?: No Do you have any abdominal pain?: No Are you experiencing loss of taste or smell?: No [facility] Anesthesia Checklist Patient Identification Patient Identification: Arm Band and Family Structural Data Admitted From: Home Planned Operative Procedure/s: ATS left knee with partial medial minisectomy and chondroplasty. Consent for Planned Operative Procedure(s) Verified: Yes Verified Documents: Surgical Consent and History and Physical NPO Status Verified Time NPO: 00:00 Additional verifications Patient : No Anesthesia Reactions: No Hx Blood Transfusions: No Blood Transfusion Reaction: No Cephalosporin Allergy: No Previous Colonoscopy: No Airway Assessment Mallampati Score:: Class II C-Spine Mobility Assessed: Yes TMJ Mobility Assessed: Yes Dentition: Edentulous Neurological Assessment Level of Consciousness: Awake, Alert, Appropriate and Follows Commands Hx Seizures: No Numbness or tingling in extremities: No Anesthesia Plan Anesthesia Risk discussed: Yes ASA Class: II Anesthesia Type: General
[2024-12-02] MEDS: CEFAZOLIN SODIUM 2 GM in 0.9 % SODIUM CHLORIDE 100 ML IV (07:20)
[2024-12-02] MEDS: RINGERS SOLUTION,LACTATED 6,000 ML 1000 ML IR (07:51)
[2024-12-02] MEDS: BUPIVACAINE 0.25% 30ML VIAL 75 MG (07:52)
--- NOTE | 2024-12-02 08:20 | EXP.ANES.I ---
[facility] Anesthesia Record Part I Anesthesia Record I Intake, IV Amount: 700 Hydration: Adequate Estimated blood loss (mL): 10 Urine output (mL): 0 Blood Products used (#): none Blood Pressure: 149/94 SaO2: 96 Pulse Rate: 78 Airway Patency: Patent Respiratory Rate: 12 Temperature: 97.7 F Patient is:: Drowsy and Stable Stable to PACU at:: 08:15
[2024-12-02] MEDS: MORPHINE 2MG/ML SYRINGE 2 MG (08:24)
--- NOTE | 2024-12-02 08:28 | EXP.OP.NOTE ---
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 lateral tibial plateau Procedure performed:: Left knee arthroscopy with partial medial and lateral meniscectomies Surgeon:: Alexis Lovell DO Residential Property Tax Appraiser(s):: Maycol LANDRY TRAFFIC II MANAGER:: Angel Woodson Anesthesia: GETA Estimated blood loss (mL): 0 Operative findings:: Macerated complex tear posterior horn medial meniscus large tear posterior horn lateral meniscus grade IV chondromalacia medial femoral condyle without loose lisette cartilage and isolated small area of grade IV chondromalacia of the lateral tibia corresponding to meniscus tear Operative note:: Patient is identified preoperatively. Left knee marked with yes and my initials. Transported operative suite. Placed upon operating bed. General anesthesia administered. Left lower extremity was then prepped and draped within the knee martinez. Once prepped and draped final operative timeout performed to identify proper patient procedure and extremity. Everyone involved in the case agreed. There is no counter indications to beginning. Did receive preoperative antibiotics. Marking pen was used to tomeka bony landmarks of the knee. Esmarch was used to exsanguinate the extremity. Pneumatic tourniquet inflated to 300 mmHg. Skin knife is used to incise standard anterior lateral portal. Blunt with trocar was placed in the patellofemoral joint and exchanged with a camera. Diagnostic arthroscopy began. Swept directly into the medial joint line where the medial portal was made under direct visualization this was exchanged with a probe. In the medial joint line there is a large complex tear of the posterior horn of the medial meniscus and subsequent grade IV chondromalacia of the medial femoral condyle without loose lisette cartilage. Using combination of straight biter and sucker shaver partial medial meniscectomy was performed back to stable rim. Attention is brought to the intercondylar notch the ACL was seen and intact. Attention was brought to the lateral joint line. Within the lateral joint line there was a large tear of the posterior horn of the lateral meniscus and subsequent kissing lesion on the lateral tibia with small area of grade IV chondromalacia full-thickness. Using combination of straight biter and sucker shaver partial lateral meniscectomy was performed back to stable rim. I swept into the medial lateral gutters and back in the patellofemoral joint. There is mild lateral tracking of the patella no full-thickness lesions of the patella trochlea grade III chondromalacia present on the patella. The camera was removed the joint was drained. Local anesthesia infiltrated the portal sites. Skin closed with nylon stitch. Sterile dressing placed from toe to thigh patient waken anesthesia taken recovery stable condition. Condition: stable Disposition: PACU Complications:: None apparent
[2024-12-02] MEDS: MORPHINE 2MG/ML SYRINGE 1 MG IV (08:33)
[2024-12-02] MEDS: HYDROMORPHONE 2MG/ML SYRINGE 0.5 MG IV ×2 (08:45→09:00)
--- NOTE | 2024-12-03 08:25 | P.PNANES_ITS ---
[facility] Anesthesia Record Part II Anesthesia Record Part II Discharge Time: 08:55 Destination: Surgical Day Care (OP Surgery) PACU nurse assessment reviewed?: Yes Patient Condition:: Good Anesthesia Complications:: None Swallowing reflex intact?: Yes Airway Patency: Patent Cyanosis?: No Blood Pressure: 138/74 SaO2: 98 Respiratory Rate: 18 Pulse Rate: 76 Temperature: 97.7 F Mental Status: Alert & Oriented Pain level:: 7 Nausea and/or vomitting:: None Intake, IV Amount: 0 Hydration: Adequate
[2024-12-03 08:26] VITALS: BP 138/74; PULSE 76; RESP 18; TEMP 36.5; O2SAT 98
== END 2024-12-02 11:00 | disposition home or self-care (01) ==
PROVIDERS: PCP Nurse Practitioner; Visit Provider Orthopaedic Surgery
PROC: (CPT 29870; principal; 2024-12-02 07:30)
DX: S83.242A Other tear of medial meniscus, current injury, left knee, initial encounter (principal); S83.282A Other tear of lateral meniscus, current injury, left knee, initial encounter; M94.262 Chondromalacia, left knee
CPT/HCPCS: 29880; 96374; J0690; J1100; J1171; J2250; J2270; J2405; J3010; J7120

== ENCOUNTER 2025-01-20 14:42 | Outpatient (CLI) | payer MEDICARE, OTHER, SELFPAY ==
--- NOTE | 2025-01-20 14:45 | XR_ITS ---
FINAL REPORT CLINICAL HISTORY: lt wrist pain COMPARISON: None FINDINGS: LEFT WRIST Three views demonstrate no acute fracture or dislocation. There are mild to moderate hypertrophic changes of the basilar joint. There is abnormal widening of the scapholunate joint space measuring up to 6 mm. This is probably related to a scapholunate ligament tear. IMPRESSION: Abnormal widening scapholunate joint space probably related to scapholunate ligament tear. Consider MRI for further follow-up. Reviewed, Interpreted and Dictated by Christian Singh MD Transcribed by Catalina Massey Authenticated and . [facility]
== END 2025-01-20 23:59 | disposition home or self-care (01) ==
LOC: RAD 14:43
PROVIDERS: PCP Nurse Practitioner; Visit Provider Physician Assistant
DX: M25.532 Pain in left wrist (principal)
CPT/HCPCS: 73110

== ENCOUNTER 2025-04-28 14:56 | Outpatient (CLI) | payer MEDICARE, OTHER, SELFPAY ==
--- OUTSIDE RECORDS SUMMARY | 2025-04-28 14:58 | XMS_ITS | Encounter Summary ---
Author Organization [facility] Address [address] [place] [address] Care Team Providers Care Driller Helper Name Role Phone Nirali Esqueda APRN Primary Care Provider [phone] Reason for Referral * Consultation (Routine) - Closed Specialty Diagnoses / Procedures Referred By Nalini t Referred To Contact Pain Medicine Diagnoses Osteoarthritis of left knee, unspecified osteoarthritis type Alexis Lovell DO [address] [place] [address] Phone: tel: fax: [facility] Interventional Pain Medicine [address] [place] [address] Phone: tel: fax: Referral ID Status Reason Start Date Expiration Date V isits Requested Visits Authorized [id number] Closed Specialty Services Required 08/02/2024 02/01/2026 1 1 Encounter Details Date Type Department Care Team (Latest Contact Info) Description 08/02/2024 Community [facility] [address] [place] [address] Alexis Lovell DO [address] [place] [address] Osteoarthritis of left knee, unspecified osteoarthritis type (Primary Dx) Social History Tobacco Use Types Packs/Day Years Used Date Smoking Tobacco: Former Cigarettes 0.5 20 1 969 - 1988 Smokeless Tobacco: Never Alcohol Use Standard Drinks/Week Comments No 0 (1 standard drink = 0.6 oz pur e alcohol) CAGE ASSESSMENT Answer Date Recorded Cage unable to access Not on file 01/19/2023 Cage max number of drinks Not on file 2022 Cage Beverages a week Not on file 01/19/2023 Have you ever felt you should CUT down on your d rinking? 0 01/19/2023 Have you been ANNOYED by people criticizing your drinking? 0 01/19/2023 Have you felt GUILTY about your drinking? 0 01/19/2023 Have you had a drink first t norma in the morning (EYE-IDENTITY ACCESS MANAGEMENT ARCHITECT) to steady your nerves or to get rid of a hangover? 0 01/19/2023 CAGE Questionnaire Score 0 023 Comments No Sex and Gender Information Value Date Recorded Sex Assigned at Not on file Legal Sex Female 6:17 PM EDT Gender Identity Not on file Sexual Orientation Not on file documented as of this encounter Plan of Treatment Scheduled Referrals Name Type Priority Associated Diagnoses Orde r Schedule Ambulatory referral to Interventional Pain Outpatient Referral Routine Osteoarthritis of left knee, unspecified osteoarthritis type Expected: 08/02/2024 (Approximate), Expires: 08/02/2025 documented as of this encounter Visit Diagnoses Diagnosis Osteoarthritis of left knee, unspecified osteoarthritis type- Primary documented in this encounter Additional Health Concerns Assessment Noted Time A fall risk assessment has been complete d for the patient 09/05/2023 10:50 AM EDT A Body Mass Index follow-up plan has been documented for the patient 09/05/2023 12:24 PM EDT documented as of this encounter Care Teams Driller Helper Relationship Specialty Start Date End Date Nirali Esqueda APRN [address] [place] [address] PCP - General 03/24/22 documented as of this encounter
--- OUTSIDE RECORDS SUMMARY | 2025-04-28 14:58 | XMS_ITS | Continuity of Care Document ---
Author Organization [place] - [facility] [employer] [facility] Address [address] [place] [address] Assessment No assessment recorded. Plan of Treatment Reminders Order Date Submit Date Provider Last Modified By Organization Details Last Modified Time Details Appointments FOLLOW UP 30 2024 11:30A M Damion Santos APRN Not available Not available Not available Lab lipid panel, serum 2024 025 [facility] [address] [place], [address], 04/19/2025 07:07:39 CBC w/ auto diff 2024 025 [facility]), [address] [place], [address], 04/19/2025 07:07:38 CMP, serum or plasma 2024 025 [facility]), [address] [place], [address], 04/19/2025 07:07:39 TSH + free T4, serum 2024 025 [facility], [address] [place] [address], [id number], 04/19/2025 07:07:38 cobalamin and folate panel, serum 2024 025 [facility] [address] [place] [address], [id number], 04/19/2025 07:07:39 vitamin D, 25-hydrox y, total, serum 2024 025 MERYL [facility]), [address] [facility], [place], [address], 04/19/2025 07:07:40 HbA1c (hemoglob in A1c), blood 2024 025 MERYL [facility] ([place]), [address] [facility], [place], [address], 04/19/2025 07:07:40 Referral None recorded. Procedures None recorded. Surgeries None recorded. Imaging nerve conductio n study 2024 025 [email or web address] Not available 04/18/2025 14:33:50 ankle brachial index - first avail 2024 025 [email or web address] [facility] [address], [place], [address], 04/25/2025 10:20:07 Medication Orders citalopra m 20 mg tablet 2024 025 RICHLAND [employer] [facility], [address] [place] [address], [id number], 04/18/2025 14:11:41 levothyro xine 75 mcg tablet 2024 025 RICHLAND [employer] [facility], [address] [place] [address], [id number], 04/18/2025 14:11:40 Patient TargetsNo targets recorded. Patient Instructions Encounter Date Encounter Id Patient Instructions Last Modified By Organization Details Last Modified Time 04/18/2025 [id number] preventing osteoporosis: care instructions [email or web address] Not available 04/18/2025 12:13:52 Reason for Referral None Reported. Problems Name Problem SNOMED Code Status Onset Date Resolution Date Notes Provider Name and Address Organization Details Recorded Time Acute urinary tract infectio n 076718072 Active 2023 Patsy Santos, SANDY [address] [place], [address] , [employer] 4 11:51:19 Urinary symptoms 797415824 Active 2023 Patricia Garcia palma, [employer] 4 10:46:09 Hyperlip idemia 02686280 Active 2024 Patricia Radha waldrop, [employer] 5 11:27:21 Fatigue 86090473 Active 2024 Patricia Matiashayden waldrop, [employer] 5 11:27:21 Hypergly cemia 06862170 Active 2024 Patricia Matiashayden waldrop, [employer] 5 11:27:21 Hypothyr oidism 40527077 Active 2018 Not Available [facility] 2 22:46:05 Type 2 diabetes mellitus without complica tion 317903580 Active 2018 Not Available [facility] 2 22:46:05 Moderate major depressi on, single episode 93771537 Completed 201602/24/2020 Problem Code: F32.1; Problem Code Type: ICD-10; Not Available [facility] 2 22:46:05 Mixed hyperlip idemia 891064694 Active 2019 Problem Code: E78.2; Problem Code Type: ICD-10; Not Available [facility] 2 22:46:05 Benign paroxysm al position al vertigo or nystagmu s 695551597 Active 2020 Not Available [facility] 2 22:46:05 Otalgia of left ear Completed 201612/09/2017 Not Available [facility] 2 22:46:05 Divertic ulum of Eustachi an tube 559350397 Completed 201612/09/2017 Problem Code: H69.82; Problem Code Type: ICD-10; Not Available [facility] 2 22:46:06 Acute frontal sinusiti s 74882062 Active 2018 Problem Code: J01.10; Problem Code Type: ICD-10; Not Available [facility] 2 22:46:06 Influenz a caused by Influenz a A virus 008415274 Active 2019 Not Available [facility] 2 22:46:06 Epidermo id cyst of skin 106870306 Completed 201907/01/2020 Problem Code: L72.3; Problem Code Type: ICD-10; Not Available [facility] 2 22:46:06 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 98225528723 9100 Active 2020 Not Available [facility] 2 22:46:06 Pain in left knee Completed 201607/13/2017 Problem Code: M25.562; Problem Code Type: ICD-10; Not Available [facility] 2 22:46:06 Muscle pain 79007087 Completed 201902/24/2020 Problem Code: M79.10; Problem Code Type: ICD-10; Not Available [facility] 2 22:46:06 Trochant luigi bursitis of right hip 19108227235 9100 Active 2020 Not Available [facility] 2 22:46:06 Pain in limb 28341458 Active 2020 Not Available [facility] 2 22:46:06 Pyrexia of unknown origin 4193535 Active 2019 Problem Code: R50.9; Problem Code Type: ICD-10; Not Available [facility] 2 22:46:06 General examinat ion of patient Active 2020 Not Available [facility] 2 22:46:07 Influenz a vaccine needed 35666296112 06 Active 2019 Problem Code: Z23; Problem Code Type: ICD-10; Not Available [facility] 2 22:46:07 Body mass index 30+ - obesity 252885038 Active 2020 Problem Code: Z68.37; Problem Code Type: ICD-10; Not Available [facility] 2 22:46:07 Body mass index 30+ - obesity 838509285 Completed 201901/01/2021 Problem Code: Z68.39; Problem Code Type: ICD-10; Not Available [facility] 2 22:46:07 Finding of body mass index 668015660 Active 2019 Problem Code: Z68.41; Problem Code Type: ICD-10; Not Available [facility] 2 22:46:08 Epidermo id cyst of skin 101750670 Active 2019 Problem Code: L72.3; Problem Code Type: ICD-10; Not Available [facility] 2 22:46:08 Synovial cyst of knee 905591130 Completed 201610/17/2017 Problem Code: M71.20; Problem Code Type: ICD-10; Not Available [facility] 2 22:46:08 Overacti ve urinary bladder 927980207 Active 2018 Problem Code: N32.81; Problem Code Type: ICD-10; Not Available [facility] 2 22:46:08 Dysfunct ion of eustachi an tube 60041922 Completed 201612/09/2017 Problem Code: 381.81; Problem Code Type: ICD-9; Not Available [facility] 2 22:46:08 Otalgia 97077169 Completed 201612/09/2017 Problem Code: 388.70; Problem Code Type: ICD-9; Not Available [facility] 2 22:46:08 Cardiova scular system problem 670324123 Completed 201612/09/2017 Problem Code: 785.9; Problem Code Type: ICD-9; Not Available [facility] 2 22:46:09 Synovial cyst of poplitea l space Completed 201610/17/2017 Problem Code: 727.51; Problem Code Type: ICD-9; Not Available [facility] 2 22:46:09 Knee pain Completed 201607/13/2017 Problem Code: 719.46; Problem Code Type: ICD-9; Not Available [facility] 22:46:09 Notes:*Problem Name: Other s pecified symptoms and signs involving the circulatory and respiratory systems *Problem Status: Acute *Comments: *Problem Code: R09.89 *Problem Code Type: ICD-10 *Note Date: 10/10/2017 Problem Notes None recorded. Procedures Surgical History Date Name Laterality Status Provider Name and Address Organization Details Recorded Time 06/29/20 17 hysterectomy completed Not Available [facility] 022 22:56:35 Cataract Surgery completed [employer]. 09/12/2023 14:03:23 Joint Replacement completed [employer]. 09/12/2023 14:03:23 Imaging Results None recorded. Procedure Notes None recorded. Medical Equipment None Reported. Allergies No known drug allergies Medications Name Sig Start Date Stop Date Status Note LastModified by Organization Details LastModified Time amoxicillin 500 mg capsule Take 1 capsule twice a day by oral route for 10 days. 11/23 completed Not Available Not Available Not Available methocarbam ol 500 mg tablet Take 1 tablet twice a day by oral route as needed for 5 days. 12/12 completed Not Available Not Available Not Available metformin 500 mg tablet 1 po QHS 11/11 completed Not Available Not Available Not Available Augmentin 875 mg-125 mg tablet take 1 tablet by oral route every 12 hours 11/25 completed Not Available Not Available Not Available cetirizine 10 mg tablet take 1 tablet (10 mg) by oral route once daily 07/01 completed Not Available Not Available Not Available atorvastati n 10 mg tablet take 1 tablet (10 mg) by oral route once daily at bedtime 07/14 completed Not Available Not Available Not Available azithromyci n 250 mg tablet 07/14 completed Not Available Not Available Not Available cetirizine 5 mg tablet take 1 tablet (5 mg) by oral route once daily prn for allergies and ear fluid 07/14 completed Not Available Not Available Not Available hydrocodone 5 mg-acetamin ophen 325 mg tablet 01/16 completed Not Available Not Available Not Available meloxicam 15 mg tablet 07/14 completed Not Available Not Available Not Available Medrol (Virgil) 4 mg tablets in a dose pack take by oral route as directed per package instructi ons 08/18 completed Not Available Not Available Not Available Aplisol 5 tub. unit/0.1 mL intradermal injection solution Inject 0.1 mL by intraderm al route. 01/16 completed Not Available Not Available Not Available ciprofloxac in 500 mg tablet Take 1 tablet every 12 hours by oral route for 7 days. 03/19 completed Not Available Not Available Not Available sulfamethox azole 800 mg-trimetho prim 160 mg tablet Take 1 tablet every 12 hours by oral route. 01/16 completed Not Available Not Available Not Available tramadol 50 mg tablet take 1 tablet (50 mg) by oral route every 8 hours prn 07/14 completed Not Available Not Available Not Available levothyroxi ne 75 mcg tablet Take 1 tablet every day by oral route for 90 days. active Not Available Not Available No t Available Aleve 220 mg tablet 2 tablets every morning. 11/11 completed Not Available Not Available Not Available meloxicam 7.5 mg tablet Take 1 tablet every day by oral route as needed for 30 days. 03/19 completed Not Available Not Available Not Available levothyroxi ne 100 mcg tablet 03/19 completed Not Available Not Available Not Available levothyroxi ne 88 mcg tablet TAKE 1 TABLET BY MOUTH EVERY MORNING ON AN EMPTY STOMACH 03/19 completed Not Available Not Available Not Available citalopram 20 mg tablet Take 1 tablet(s) by mouth daily active Not Available Not Available No t Available meclizine 25 mg tablet take 1 tablet (25 mg) by oral route every 6 hours prn dizziness 11/20 completed Not Available Not Available Not Available cephalexin 500 mg capsule 07/14 completed Not Available Not Available Not Available gabapentin 300 mg capsule take 1 capsule (300 mg) by oral route 3 times per day 07/14 completed Not Available Not Available Not Available omeprazole 20 mg capsule,del ayed release 07/14 completed Not Available Not Available Not Available diclofenac sodium 75 mg tablet,katie yed release take 1 tablet (75 mg) by oral route 2 times per day 07/14 completed Not Available Not Available Not Available etodolac 400 mg tablet one po bid 08/03 completed Not Available Not Available Not Available gabapentin 100 mg capsule 07/14 completed Not Available Not Available Not Available ergocalcife rol (vitamin D2) 1,250 mcg (50,000 unit) capsule Take 1 capsule every week by oral route for 90 days. 2024 active Not Available Not Available Not Avai lable azelastine 137 mcg (0.1 %) nasal spray 10/17 completed Not Available Not Available Not Available diazepam 10 mg tablet 10/17 completed Not Available Not Available Not Available lovastatin 20 mg tablet take 1 tablet (20 mg) by oral route once daily with the evening meal 02/23 completed Not Available Not Available Not Available Naprosyn 500 mg tablet Take 1 tablet(s) by mouth bid 03/07 completed Not Available Not Available Not Available oxybutynin chloride 5 mg tablet 1 po bid 10/21 completed Not Available Not Available Not Available ondansetron 4 mg disintegrat ing tablet 03/19 completed Not Available Not Available Not Available fluticasone propionate 50 mcg/actuati on nasal spray,suspe nsion inhale 1 spray (50 mcg) in each nostril by intranasa l route 2 times per day 11/23 completed Not Available Not Available Not Available oxycodone 5 mg tablet 07/14 completed Not Available Not Available Not Available Lexapro 20 mg tablet Take 1 tablet(s) by mouth daily 04/26 completed Not Available Not Available Not Available nitrofurant oin monohydrate /macrocryst als 100 mg capsule Take 1 capsule every 12 hours by oral route for 7 days. 10/17 completed Not Available Not Available Not Available solifenacin 5 mg tablet 04/18 completed Not Available Not Available Not Available solifenacin 10 mg tablet take 1 tablet (10 mg) by oral route once daily 12/31 completed Not Available Not Available Not Available [facility] Levothyroxi ne Sodium Take 1 capsule(s ) by mouth daily. 09/28 completed Not Available Not Available Not Available oxybutynin 11/11 completed Not Available Not Available Not Available levocetiriz ine 5 mg tablet active Not Available Not Available Not Available Myrbetriq 25 mg tablet,exte nded release TAKE 1 TABLET ONCE DAILY SWALLOWIN G WHOLE WITH WATER. DO NOT CRUSH, CHEW AND/OR DIVIDE. 03/19 completed Not Available Not Available Not Available Myrbetriq 50 mg tablet,exte nded release active Not Available Not Available Not Available Adult Aspirin Regimen 81 mg tablet,katie yed release take 1 tablet (81 mg) by oral route once daily 07/14 completed Not Available Not Available Not Available Ozempic 0.25 mg or 0.5 mg (2 mg/3 mL) subcutaneou s pen injector 07/14 completed Not Available Not Available Not Available Vitals Date Recorded Body height Body mass index (BMI) Body weight Heart rate Oxygen saturation Oxygen saturation in Arterial blood by Pulse oximetry Systolic blood pressure Diastolic blood pressure Provider Name and Address Organization Details Last Updated DateTime 5 157.48 cm 40.1 kg/m2 21442.7 3 g 87 /min 91 % 91 % 125 mm[Hg] 82 mm[Hg] Patricia Garcia [employer] 5 11:40:56 Social History Question Answer Notes LastModified by Organizat ion Details LastModified Time Tobacco Smoking Status Former Smoker Yanely waldrop [employer] 07/14/2023 11:36:36 Do You Have An Advance Directive? No Information n ot available 09/12/2023 Is Your Home Air Conditioned? Yes Information not available 09/12/2023 Do You Wear A Helmet When Biking? No Information not available 09/12/2023 Are You Blind Or Do You Have Difficulty Seeing? No Information n ot available 07/14/2023 What Is Your Level Of Caffeine Consumption? Moderate Information not available 09/12/2023 In The 14 Days Before Symptom Onset, Have You Had Close Contact With A Laboratory-confirm ed COVID-19 While That Case Was Ill? No API-27 Information n ot available 11/23/2023 In The 14 Days Before Symptom Onset, Have You Had Close Contact With A Person Who Is Under Investigation For COVID-19 While That Person Was Ill? No API-27 Information not available 11/23/2023 Have You Been To An Area Known To Be High Risk For COVID-19? No API-27 Information not available 11/23/2023 Are You Deaf Or Do You Have Serious Difficulty Hearing? No Information not available 07/14/2023 What Type Of Diet Are You Following? REGULAR Information n ot available 09/12/2023 How Many Days Of Moderate To Strenuous Exercise, Like A Brisk Walk, Did You Do In The Last 7 Days? 0 Information not available 09/12/2023 Have There Been Any Changes To Your Family Or Social Situation? No Information no t available 09/12/2023 When Did You Quit Smoking? 16+yearssince lastcimelvin Information not available 09/12/2023 Are There Any Guns Present In Your Home? Yes Information not available 09/12/2023 Which Of Your Hands Is Dominant? Right Information n ot available 07/14/2023 What Is Your Home Situation? Other Information not available 09/12/2023 Do You Have A Medical Power Of Regulatory Technician? No Information not available 09/12/2023 What Was The Date Of Your Most Recent Tobacco Screening? 04/18/2025 Information not available 04/18/2025 What Is Your Current Pack Years? 10packyears Information not available 01/16/2025 Do You Have Any Pets? No Information not available 09/12/2023 What Is Your Relationship Status? Information not available 09/12/2023 Have You Repeated Any Grades? No Information not available 09/12/2023 Do You Use Your Seat Belt Or Car Seat Routinely? Yes Information not available 07/14/2023 Are You Sexually Active? No Information not available 09/12/2023 Do You Have Any Siblings? 3 Sisters Information not available 09/12/2023 Do You Have Smoke And Carbon Monoxide Detectors In Your Home? Yes Information not available 09/12/2023 Are You Passively Exposed To Smoke? No Information no t available 09/12/2023 Are There Any Smokers In Your House? No Information not available 09/12/2023 How Much Tobacco Do You Smoke? No [email or web address] Information not available 04/17/2024 What Types Of Sporting Activities Do You Participate In? 0 Information not available 09/12/2023 Do You Use Sunscreen Routinely? No Information not available 09/12/2023 Have You Recently Traveled Abroad? No Information not available 09/12/2023 Do You Have Difficulty Walking Or Climbing Stairs? Yes Information not available 09/12/2023 Are You Currently In School? No Information not available 09/12/2023 Sex: Female Functional Status Question Answer Note LastModified by Organizat ion Details LastModified Time Do you use any illicit or recreational drugs? No Information not available 09/12/2023 Do you or have you ever used any other forms of tobacco or nicotine? No Information not available 09/12/2023 Are you currently employed? No Information not available 07/14/2023 Do you have transportation difficulties? No Information not available 09/12/2023 Are you able to walk? YESASSIST Information not available 07/14/2023 Do you have difficulty doing errands alone? No Information not available 07/14/2023 Are you able to care for yourself? Yes Information n ot available 07/14/2023 Do you have difficulty dressing or bathing? No Information not available 07/14/2023 What is your exercise level? Occasional Information not available 09/12/2023 Mental Status Question Answer Note LastModified by Organization D etails LastModified Time Do you have difficulty concentrating, remembering or making decisions? No Information no t available 07/14/2023 Are you or have you been involved with bullying? No [email or web address] Information not available 09/12/2023 Family History Relationship Description Onset Age of this Age Resolved Age Notes LastModified by Organization Details LastModified Time Unspecified Relation Family history of Myocardial infarction Not available 09:38:45 Unspecified Relation Family history of malignant neoplasm Not available 03/2024 09:38:41 Unspecified Relation Family history of Hypertension [email or web address] Not available 04/17/2024 09:38:39 Unspecified Relation Family history of diabetes mellitus type 2 [email or web address] Not available 03/2024 09:38:36 Medical History Condition Response Hospitalizations N Emergency room visit since last appointm ent. N Hypothyroidism Y Diabetes Y High Cholesterol Y Gynecological History Statement/Question Response Menses Monthly N HPV Vaccine N Date of Last Pap Smear Most Recent Mammogram Age at First Child 15 Obstetrics History GPAL:G 0 P 0 0 0 0 Immunizations Vaccine Type Date Status Note Provider Name and Address Organization Details Recorded Time pneumococcal polysaccharide PPV23 020 completed Not Available [facility] 07/19/2022 22:59:44 zoster recombinant 024 cancelled patient objection Patsyyolanda Santos, INTELLIGENCE ANALYST [address] [place], [address], [employer] 03/19/2024 15:39:05 pneumococcal polysaccharide PPV23 024 cancelled patient objection Patsyyolanda Santos, INTELLIGENCE ANALYST [address] [place], [address], [employer] 03/19/2024 15:39:05 zoster recombinant 024 cancelled patient objection Patsy Tom, INTELLIGENCE ANALYST [address] [place], [address], [employer] 10/17/2024 15:52:54 pneumococcal polysaccharide PPV23 024 cancelled patient objection Patsy Santos, INTELLIGENCE ANALYST [address] [place], [address], [employer] 10/17/2024 15:52:54 Influenza, high-dose, trivalent, PF 024 cancelled patient objection Patsy Santos APRN [address] [place], [address], [facility] [employer] 10/17/2024 15:52:54 COVID-19, mRNA, LNP-S, PF, megha-sucrose, 30 mcg/0.3 mL 024 cancelled patient objection Patsy Santos APRN [address] [place], [address], [facility] [employer] 10/17/2024 15:52:54 Past Encounters Encounter ID Performer Location Encounter Start Date Encounter Closed Date Diagnosis/Indication Diagnosis SNOMED-CT Code Diagnosis ICD10 Code Diagnosis Note [id number] Patsy Santos [address] [address] 04/18/2025 11:24:55 04/18/2025 12:00:16 Hyperlipidemia 22501046 E78.5 Fatigue 77084395 R53.83 Hyperglycemia 30914334 R 73.9 Osteoporos is screening declined 3549629210 84011 Z53.20 Hypothyroidism 52854932 E03.9 Moderate r ecurrent major depression 54827204 F33.1 Pain in bi lateral legs 7304904585 5694730 M79.604 M79.605 Body mass index 40+ - severely obese 430229247 Z68.41 Health Concerns Section Related Observation LastModified by Organization Detai ls LastModified Time None Recorded Concern Status LastModified by Organization Details LastModified Time None Recorded Payers Encounter Date Sequence Insurance Name Policy Number Policy Henry Covered Member ID Henry Member ID Guarantor Name 04/18/2025 1 [place] Fátima De Luna [id number] Fátima De Luna 04/18/2025 2 [employer] (MEDICARE SUPPLEMENT) Fátima De Luna [id number] Fátima De Luna Notes Date Note Type Note Provider Name and Address Organization Details Recorded Time 04/18/2025 text/html pt here today fo r medicaton refills. pt states shes doing well on current medication regime. pt states that she is having some depression over the past few months. pt states that the last time she had some is when her and she needed to take some medication for 7-8 months. pt states it is hard for her to get out of bed and hard for her to find enjoyment in things. pt denies any thoughts or plans of suicide. i will order celexa. educated pt on new med. pt voiced understanding. pt also states that she has been having pain in BLE from mid card down from the past few months. states that it is only when she is walking/standing for over 15 min. states that if she is sitting, relaxing, driving, sleeping she is fine. assessment WNL. pt is walking with cane today. i will send for an EVH and ADAM. Patsy Santos APRN [address] [facility]3], [place], [address], [facility] [employer] 04/18/2025 12:13:49 OBGyn Episode No OBEpisode recorded.
--- OUTSIDE RECORDS SUMMARY | 2025-04-28 14:58 | XMS_ITS | Clinical Summary ---
Author Organization Healthcare Address [address] [place] [address] Care Team Providers Care Chocolate Production Machine Operator Name Role Phone Nirali Esqueda APRN Primary Care Provider + [phone] Allergies No known active allergies Medications levothyroxine (Synthroid, Levoxyl) 88 MCG tablet Take 1 tablet (88 mcg) by mouth 1 (one) time each day before breakfast. 2 Active fluticasone (Flonase) 50 MCG/ACT nasal sprayIndication s:allergies Administer 1 spray into each nostril 1 (one) time each day. Shake gently. Before first use, prime pump. After use, clean tip and replace cap. Active acetaminophen (Tylenol Extra Strength) 500 MG tablet Take 2 tablets (1,000 mg total) by mouth every 8 (eight) hours. 100 tablet 3 Active traMADol (Ultram) 50 MG tablet Take 1 tablet (50 mg total) by mouth every 8 (eight) hours if needed for severe pain. 30 tablet 3 Active oxyCODONE (Roxicodone) 5 MG immediate release tablet Take 1 tablet (5 mg total) by mouth every 8 (eight) hours if needed for severe pain. 20 tablet 3 Active gabapentin (Neurontin) 100 MG capsule Take 1 capsule (100 mg total) by mouth 3 (three) times a day. 30 capsule 3 Active ibuprofen 200 MG tablet Take 1 tablet (200 mg) by mouth every 6 (six) hours if needed for mild pain. Active levothyroxine (Synthroid, Levoxyl) 75 MCG tablet 3 Active Myrbetriq 25 MG tablet 3 Active Azelastine HCl 137 MCG/SPRAY solution 4 Active levocetirizine (Xyzal) 5 MG tablet 4 Active meclizine (Antivert) 25 MG tablet Take 1 tablet (25 mg) by mouth if needed for dizziness. Active nitrofurantoin, macrocrystal-mo nohydrate, (Macrobid) 100 MG capsule Take 1 capsule every 12 hours by oral route for 7 days. Active Active Problems Problem Noted Date Diagnosed Date Obesity (BMI 35.0-39.9 without comorbidity) 07/2023 Arthritis of right hip 01/18/2023 Primary localized osteoarthritis of right hip Hip arthritis 11/24/2022 Overview (11/24/2022): Added automatically from request for surgery [id number] Immunizations Immunization Administration Dates Next Due Pneumococcal Polysaccharide PPV23 02/24/2020 Family History Medical History Relation Name Comments Other cancer Father Diabetes Mother Stroke Mother Other cancer Sibling Relation Name Status Comments Father Mother Sibling Social History Tobacco Use Types Packs/Day Years Used Date Smoking Tobacco: Former Cigarettes 0.5 20 1 969 - 1988 Smokeless Tobacco: Never Tobacco Cessation:Counseling Given: Not Answered Alcohol Use Standard Drinks/Week Comments No 0 [...] drink first t norma in the morning (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 0 01/19/2023 CAGE Questionnaire Score 0 023 Comments No Sex and Gender Information Value Date Recorded Sex Assigned at Not on file Legal Sex Female 6:17 PM EDT Gender Identity Not on file Sexual Orientation Not on file Last Filed Vital Signs Vital Sign Reading Time Taken Comments Blood Pressure 120/80 09/09/2024 2:15 PM EDT Pulse 76 09/09/2024 2:15 PM EDT Temperature 36.1 C (97 F) 09/09/2024 1:54 PM EDT Respiratory Rate 18 09/09/2024 2:15 PM EDT Oxygen Saturation 97% 09/09/2024 2:15 PM EDT Inhaled Oxygen Concentration - - Weight 95.3 kg (210 lb) 09/09/2024 1:54 PM EDT Height 157.5 cm (5' 2 ) 09/09/2024 1:54 PM EDT Body Mass Index 38.41 09/09/2024 1:54 PM EDT Plan of Treatment Health Maintenance Due Date Last Done Comments [facility]-Bone Density Scan 1948 [facility]-Depression Screening 1948 [facility]-Hepatitis C Screening 1950 [facility]-Medicare Annual Wellness (AWV) 1948 [facility]-/Child/Adol SDOH Screenings 1948 [facility]- SDOH Screenings 1966 [facility]-Adult SDOH Screenings 1966 [facility]-DTaP,Tdap,and Td Vaccines (1 - Tdap) 1967 [facility]-Zoster Vaccines (1 of 2) 1998 [facility]-Pneumococcal Vaccine: 50+ Years (2 of 2 - PCV) 02/23/2021 02/24/2020 [facility]-RSV Vaccine: 60+ Years or (1 - 1-dose 75+ series) 2023 [id number] Vaccine (1 - 2023- season) 2024 [facility]-Influenza Vaccine (Season Ended) 2025 [facility]-Diabetes: Hemoglobin A1C Discontinued 04/21/2023, 01/05/2023 [facility]-Obesity Intervention Completed 024, 08/08/2024, 08/08/2024, Additional history exists HPV Vaccines Aged Out No longer eligi ble based on patient's age to complete this topic [facility]-HIB Vaccines Aged Out No longer e ligible based on patient's age to complete this topic [facility]-Hepatitis A Vaccines Aged Out No longer eligible based on patient's age to complete this topic [facility]-IPV Vaccines Aged Out No longer e ligible based on patient's age to complete this topic [facility]-Rotavirus Vaccines Aged Out No lo nger eligible based on patient's age to complete this topic Medical Devices Implanted Type Area Flower Buncher Or Picker Device Identifier Shelf Expiration Date Model / Serial / Lot Chg Shell R3 3 Hole Acet 50mm - [id number] Implanted:Qty: 1 on 01/18/2023 by Jalen Sage MD at [facility] Right: Hip [id number] 09/29/2032 [id number] / / [id number] Liner R3 Xlpe 20deg 36mm X 50mm - [id number] Implanted:Qty: 1 on 01/18/2023 by Jalen Sage MD at [facility] Right: Hip [employer]-[id number] 06/05/2032 [id number] / / [id number] Chg Screw Ref Spher Head 40mm - [id number] Implanted:Qty: 1 on 01/18/2023 by Jalen Sage MD at [facility] Right: Hip [employer]-[id number] 07/13/2032 [id number] / / [id number] Chg Screw Ref Spher Head 20mm - [id number] Implanted:Qty: 1 on 01/18/2023 by Jalen Sage MD at [facility] Right: Hip [employer]-[id number] 06/23/2032 [id number] / / [id number] Hip Stem Plus Sl Integr Nata Lat M Ti Sterling 1 - [id number] Implanted:Qty: 1 on 01/18/2023 by Jalen Sage MD at [facility] Right: Hip [employer]-[id number] 10/02/2028 [id number] / / [id number] Chg Head Oxinium Fem 10/26 36 - [id number] Implanted:Qty: 1 on 01/18/2023 by Jalen Sage MD at [facility] Right: Hip [employer]-[id number] 09/18/2032 [id number] / / [id number] Procedures Procedure Name Priority Date/Time Associated Diagnosis Comments HEMOGLOBIN A1C Routine 01/05/2023 10:28 AM EST Right hip pain Hip arthritis Abnormal finding of blood chemistry, unspecified from Last 3 Months or Most Recently Relevant to Health Maintenance Results * (ABNORMAL) Hemoglobin A1c (01/05/2023 10:28 AM EST) Hemoglobin A1c 5.7(H) <5.7 % 01/05/2023 1:38 PM EST [facility] Blood Venous blood specimen / Unknown Venipuncture / Unknown 01/05/2023 10:28 AM EST 01/05/2023 10:28 AM EST Narrative [facility] - 01/05/2023 1:38 PM EST HA1C Interpretive Data: Diagnosis of Diabetes: Diabetic > or = 6.5% Pre-diabetic 5.7 to 6.4% Non-diabetic < or = 5.6% Glycemic Targets for Type I and Type II Diabetics: Non- Adults <7.0% Adults <6.0% Children and Adolescents <7.5% Source: [place] [employer]. Standards of medical care in diabetes,2017. Diabetes Care.2017:40 (suppl 1):S1-S135. HbA1c assay performed by an ion-exchange chromatography method that is certified traceable to the DCCT. Jalen Sage MD LAB BLOOD ORDERABLES Final [facility] [address] [place] [address] from Last 3 Months or Most Recently Relevant to Health Maintenance Insurance MEDICARE [employer] Advance Directives * Full Code (Latest Code Status on File) Date Activated Date Inactivated Comments 01/18/2023 11:25 AM 01/19/2023 4:33 PM Question Answer Comments Patient has decision-making capacity? Yes Care Teams Chocolate Production Machine Operator Relationship Specialty Start Date End Date Nirali Esqueda, SANDY [address] [place] [address] PCP - General 03/24/22
--- NOTE | 2025-04-28 15:01 | US_ITS ---
FINAL REPORT CLINICAL HISTORY: Ex smoker, HLD, untreated DM COMPARISON: None FINDINGS: ANKLE-BRACHIAL PRESSURE INDICES Pressure indices are as follows: RIGHT LOWER EXTREMITY: Ankle-brachial pressure index: 1.06 Comments: Normal LEFT LOWER EXTREMITY: Ankle-brachial pressure index: 1.05 Comments: Normal CONCLUSION: No evidence of significant obstructive peripheral vascular disease of the lower extremities Reviewed, Interpreted and Dictated by Christian Singh MD Transcribed by Kerline Mobley Authenticated and [facility]
== END 2025-04-28 23:59 | disposition home or self-care (01) ==
LOC: RT 14:56
PROVIDERS: PCP Nurse Practitioner; Visit Provider Nurse Practitioner
DX: M79.604 Pain in right leg (principal); M79.605 Pain in left leg; E78.5 Hyperlipidemia, unspecified; E11.9 Type 2 diabetes mellitus without complications; R09.89 Other specified symptoms and signs involving the circulatory and respiratory systems; Z87.891 Personal history of nicotine dependence
CPT/HCPCS: 93923

== ENCOUNTER 2025-06-02 13:54 | Outpatient (POV) | payer MEDICARE, OTHER, SELFPAY ==
--- OUTSIDE RECORDS SUMMARY | 2025-06-02 13:58 | XMS_ITS | Clinical Summary ---
Author Organization [facility] Address [address] [place] [address] Care Team Providers Care Car Unloader Helper Name Role Phone Viviane So APRN Primary Care Provider Allergies No known active allergies Medications Turmeric 500 MG tablet Take 3 tablets by mouth Daily. Active diphenhydrAMINE (BENADRYL) 25 mg capsule Take 1 capsule by mouth 2 (Two) Times a Day. Active Mirabegron ER (MYRBETRIQ) 25 MG tablet sustained-release 24 hour 24 hr tablet Take 1 tablet by mouth Daily. Active levothyroxine (SYNTHROID, LEVOTHROID) 100 MCG tablet Take 1 tablet by mouth Daily. Active fluticasone (FLONASE) 50 MCG/ACT nasal spray 2 sprays into the nostril(s) as directed by provider Daily. Active Homeopathic Products (FRANKINCENSE UPLIFTING IN) Inhale 30 mL. Ac tive [place]-3 Fatty Acids (fish oil) 1000 MG capsule capsule Take by mouth Daily With Breakfast. Active multivitamin with minerals tablet tablet Take 1 tablet by mouth Daily. Active Semaglutide,0.25 or 0.5MG/DOS, (OZEMPIC) 2 MG/3ML solution pen-injector Inject 0.5 mg under the skin into the appropriate area as directed 1 (One) Time Per Week. 2 mL 05/03/20 Active Semaglutide-Weight Management 0.25 MG/0.5ML solution auto-injector Inject 0.25 mg under the skin into the appropriate area as directed 1 (One) Time Per Week. 2 mL 06/21/20 23 Active ondansetron ODT (ZOFRAN-ODT) [address] 1 tablet on the tongue Every 8 (Eight) Hours As Needed for Nausea or Vomiting. 30 tablet 05/17/20 23 Active Active Problems Problem Noted Date Diagnosed Date Mixed hyperlipidemia 04/25/2023 Anemia 04/21/2023 Hypothyroidism 04/21/2023 Obesity, Class III, BMI 40-49.9 (morbid obesity) 04/21/2023 Assessment & Plan (05/03/2023 2:36 PM EDT): Patient's (Body mass index is 42.02 kg/m .) indicates that they are morbidly/severely obese (BMI > 40 or > 35 with obesity - related health condition) with health conditions that include diabetes mellitus, dyslipidemias, and osteoarthritis . Weight is unchanged. BMI is above average; BMI management plan is completed. We discussed portion control and increasing exercise. I have instructed the patient to continue with pursuit of medical weight loss as a part of this program. Patient does meet criteria for use of anorectics at this time as BMI >30 , body fat percentage >30%, hyperlipidemia, and diabetes. Continue nutritional focus and work towards new exercise FITT goal of: 3-2-2-0 The current plan for this month includes: continue current exercise efforts, adjust exercise as discussed, weight loss goal 4-6lbs this month, continue to work on lifestyle behavioral changes, continue nutrition focus, and adjust macronutrients as discussed. Bring food journal to next visit for review. OFI: [facility] [place] Look for senior exercise classes, water aerobics. Shoot for 30 minutes 3-4x/week. Log on [employer], gave ideas. Optimize protein. Will rx Ozempic for DM2 (previous diagnosis)--will need PA. Cautioned about getting enough protein to prevent sarcopenia. Start ozempic. Denies family or personal history of pancreatitis, MTC, or MEN 2. Discussed common side effects of nausea, diarrhea, vomiting, constipation, stomach pain, headache, fatigue, upset stomach, dizziness, feeling bloated, belching, gas, stomach flu, heartburn. First injection of semaglutide 0.25mg was administered in the office today, no complications. Sample pen provided to patient along with content regarding use of the pen, dosing schedule, savings opportunities, and helpful tips. Assessment & Plan (04/21/2023 2:23 PM EDT): Patient's (Body mass index is 41.86 kg/m .) indicates that they are morbidly/severely obese (BMI > 40 or > 35 with obesity - related health condition) with health conditions that include diabetes mellitus . Weight is improving with lifestyle modifications. BMI is above average; BMI management plan is completed. We discussed portion control and increasing exercise. Does not have insurance coverage for anorectics or gLP-1 for weight loss. Pending if she has coverage for GLP-1 for dx of DM2. Can try diethylpropion or GLP-1 if covered for DM2. Topics of discussion included obesity as a disease, nutritional education on food groups, exercise, and medications. Patient was instructed in adequate protein, controlled carb and controlled fat intake. Patient received instructions on using the medicines as a tool in controlling their weight with nutritional and behavioral changes. Risks and benefits were discussed. I believe the potential benefits of medication helping to decrease weight outweighs the risks. Patient is to try nutritonal/behavioral changes only first. Patient received our clinic education booklet. Our patient consent form was reviewed including potential risks of weight loss. We also reviewed our confidentiality and HIPPA statements. Patients current FITT score was reviewed along with current capability for exercise tolerance and a patient will work towards a FITT score of: Frequency Intensity Time Strength Training [] 0 None [] 0 None [] 0 None [] 0 None [] 1 (1-2x/week) [] 1 (light) [] 1 (<10 min) [] 1 (1x/week) [x] 2 (3-5x/week) [x] 2 (moderate) [] 2 (10-20 min) [x] 2 (2x/week) [] 3 (daily) [] 3 (moderately hard) [] 4 (very hard) [x] 3 (20-30 min) [] 4 (>30 min) [] 3 (3-4x/week) Patient's past medical history was reviewed in detail and barriers to weight loss were identified and discussed. Past efforts at weight reduction on their own as well as under physician supervision were documented and discussed. I advised patient to continue routine care with their Primary Care Provider. Nutritional recommendations and goals were reviewed including Calories:7817-7937 daily adjusted for exercise calories burnt, Protein:80-100 g daily, Net carbs (total carb - fiber) of 50-75g per day. Start to keep a food journal and bring into next visit in 2 weeks for review. Practice the behavioral modification technique of mindful eating. Take one MVI daily and 2000mg fish oil daily. Take other medications and supplements as directed. Overactive bladder 04/21/2023 Seasonal allergies 04/21/2023 DM2 (diabetes mellitus, type 2) 04/21/2023 Overview (04/21/2023): Hgb A1C 7 in the remote past. Controlled by diet/exercise. Last HgbA1C 5.8. Hip arthritis 11/24/2022 Overview (04/21/2023): Added automatically from request for surgery [id number] Resolved Problems Problem Noted Date Diagnosed Date Resolved Date Prediabetes 04/21/2023 04/21/2023 Obesity (BMI 35.0-39.9 without comorbidity) 01/19/2023 04/21/2023 Primary localized osteoarthritis of right hip 01/19/20 23 04/21/2023 Family History Medical History Relation Name Comments Heart disease Brother Arthritis Daughter Sleep apnea Daughter Cancer Father Arthritis Mother Diabetes Mother Heart disease Sister Sleep apnea Son Relation Name Status Comments Brother Daughter Father Mother Sister Son Social History Tobacco Use Types Packs/Day Years Used Date Smoking Tobacco: Former Cigarettes Q uit: 1988 Tobacco Cessation:Counseling Given: Not Answered Alcohol Use Standard Drinks/Week Comments Not Currently 0 (1 standard drink = 0.6 oz pur e alcohol) PHQ-2 Answer Date Recorded Retired PHQ-9: Brief Depression Severity Measure Score 8 04/17/2023 Abuse Screen Answer Date Recorded Unsafe at Home or Work/School Not on file Feels Threatened by Someone? Not on file Does Anyone Keep You from Co ntacting Others or Doint Things Outside the Home? Not on file 08/25/2023 Physical Sign of Abuse Present Not on file 1 Housing Stability Answer Date Recorded Current Living Arrangements Not on file 08/13 Potentially Unsafe Housing Conditions Not on esteban e 08/25/2023 Family and Community Support Answer Philipp e Recorded Help with Day-to-Day Activities Not on file 08/25/2023 Lonely or Isolated Not on file 08/25/2023 Employment Answer Date Recorded Do you want help finding or keeping work or a mart b? Not on file 08/25/2023 Disabilities Answer Date Recorded Concentrating, Remembering, or Making Decisions Difficulty Not on file 08/25/2023 Doing Errands Independently Difficulty Not on fi le 08/25/2023 Education Answer Date Recorded Help with school or training? Not on file Preferred Language Not on file 08/25/2023 PHQ-2 Answer Date Recorded Retired PHQ-9: Brief Depression Severity Measure Score 8 04/17/2023 Comments Unknown Sex and Gender Information Value Date Recorded Sex Assigned at Female 05/01/2023 1:54 PM EDT Legal Sex Female 3:12 PM EDT Gender Identity Female 05/01/2023 1:54 PM EDT Sexual Orientation Straight 05/01/2023 1: 54 PM EDT Last Filed Vital Signs Vital Sign Reading Time Taken Comments Blood Pressure 124/86 05/03/2023 1:44 PM EDT Pulse 90 05/03/2023 1:44 PM EDT Temperature - - Respiratory Rate - - Oxygen Saturation 96% 05/03/2023 1:44 PM EDT Inhaled Oxygen Concentration - - Weight 96 kg (211 lb 9.6 oz) 05/03/2023 1:44 PM EDT Height 151.1 cm (4' 11.5 ) 05/03/2023 1:44 PM ED T Body Mass Index 42.02 05/03/2023 1:44 PM EDT Plan of Treatment Health Maintenance Due Date Last Done Comments DXA SCAN 1950 DIABETIC EYE EXAM 1958 DIABETIC FOOT EXAM 1958 URINE MICROALBUMIN-CREATININE RATIO (uACR) 1958 TDAP/TD VACCINES (1 - Tdap) 1967 ZOSTER VACCINE (1 of 2) 1998 Pneumococcal Vaccine 50+ (2 of 2 - PCV) 02/23/2021 0 02/24/2020 ANNUAL WELLNESS VISIT 04/17/2023 HEPATITIS C SCREENING 04/17/2023 RSV Vaccine - Adults (1 - 1- dose 75+ series) 2023 HEMOGLOBIN A1C 10/21/2023 04/21/2023, 01/05/2023 LIPID PANEL 04/21/2024 04/21/2023 COVID-19 Vaccine (2023- season) 2024 INFLUENZA VACCINE 08/13/2025 Procedures Procedure Name Priority Date/Time Associated Diagnosis Comments HEMOGLOBIN A1C Routine 04/21/2023 2:35 PM EDT LIPID PANEL Routine 04/21/2023 2:35 PM EDT Primary localized osteoarthritis of right hip Hip arthritis Hypothyroidism, unspecified type Obesity, Class III, BMI 40-49.9 (morbid obesity) Overactive bladder Anemia, unspecified type Seasonal allergies Malnutrition screen Hypovitaminosis D Therapeutic drug monitoring Type 2 diabetes mellitus without complication, unspecified whether terminal carman insulin use from Last 3 Months or Most Recently Relevant to Health Maintenance Results * (ABNORMAL) Hemoglobin A1c (04/21/2023 2:35 PM EDT) Hemoglobin A1C 6.0(H) 4.8 - 5.6 % [facility] Comment: Prediabetes: 5.7 - 6.4 Diabetes: >6.4 Glycemic control for adults with diabetes: <7.0 04/21/2023 2:35 PM EDT 04/21/2023 Narrative [facility] (AMBULATORY) - 04/24/2023 1:08 PM EDT Performed at: 02 - [address] [id number] Lap Maker: Jarocho Drake PhD, Phone: [phone] Patient Fasting: N us Demetrice Willis MD LAB BLOOD ORDERABLES Fin al Result [facility] (AMBULATORY) [address] [place] [address], [facility] [address] [place] [address], * (ABNORMAL) Lipid Panel (04/21/2023 2:35 PM EDT) Total Cholesterol 200(H) 100 - 199 mg/dL [facility] Triglycerides 151(H) 0 - 149 mg/dL [facility] HDL Cholesterol 60 >39 mg/dL [facility] VLDL Cholesterol Yovany 26 5 - 40 mg/dL [facility] LDL Chol Calc (NIH) 114(H) 0 - 99 mg/dL [facility] Blood 04/21/2023 2:35 PM EDT 04/21/2023 Narrative [facility] ([facility]) - 04/24/2023 1:08 PM EDT [facility]formed at: [facility] [address] [place], [place] [id number] Lap Maker: Jarocho Drake PhD, Phone: [phone] Patient Fasting: N Demetrice Willis MD LAB BLOOD ORDERABLES Fin al Result [facility] (AMBULATORY) [address] [place] [address], [facility] [address] [place] [address], from Last 3 Months or Most Recently Relevant to Health Maintenance Insurance MEDICARE A & B Care Teams Car Unloader Helper Relationship Specialty Start Date End Date Viviane So APRN PCP - General Nurse Practitioner 04/07/23
--- OUTSIDE RECORDS SUMMARY | 2025-06-02 13:59 | XMS_ITS | Clinical Summary ---
Author Organization [facility] ([place], [place], [place], [place]) Address [address] [place] [address] Care Team Providers Care Operations Support Representative Name Role Phone Unavailable Primary Care Provider Unavailabl e Social History Tobacco Use Types Packs/Day Years Used Date Smoking Tobacco: Never Assessed Food Insecurity Answer Date Recorded Food run out past 12 months Not on file 05/2024 Food did not last past 12 months Not on file 01/18/2024 Employment Answer Date Recorded Help finding and keeping a job Not on file 0 01/18/2024 Family and Community Support Answer Philipp e Recorded Help with Day to Day Activities Not on file 01/18/2024 Feeling Lonely or Isolated Not on file 01/17 Educational Attainment Answer Date Byron rded Speak language other than Tanzanian at home Not on file 01/18/2024 Want help with school or training Not on file 01/18/2024 Substance Use Answer Date Recorded Used prescription meds for non-medical reasons N ot on file 01/18/2024 Used illegal drugs past 12 months Not on file 01/18/2024 Comments Unknown Sex and Gender Information Value Date Recorded Sex Assigned at Not on file Legal Sex Female 8:53 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
--- OUTSIDE RECORDS SUMMARY | 2025-06-02 13:59 | XMS_ITS | Clinical Summary ---
Author Organization Healthcare Address [address] [place] [address] Care Team Providers Care Manager Cardiac Name Role Phone Nirali Esqueda APRN Primary Care Provider + [phone] Allergies No known active allergies Medications levothyroxine [...] (11/24/2022): Added automatically from request for surgery [id number] Immunizations Immunization Administration Dates Next Due Pneumococcal [...] drink first t norma in the morning (EYE-PLEASURE CRAFT SAILOR) to steady your nerves or to get [...] Wellness (AWV) 1948 [facility]-/Child/Adol SDOH Screenings 1948 [id number] Vaccine (#1) 1953 [facility]- SDOH Screenings 1966 [facility]-Adult SDOH Screenings 1966 [facility]-DTaP,Tdap,and Td Vaccines (1 - Tdap) 1967 [facility]-Zoster Vaccines (1 of 2) 1998 [facility]-Pneumococcal Vaccine: 50+ Years (2 of 2 - PCV) 02/23/2021 02/24/2020 [facility]-RSV Vaccine: 60+ Years or (1 - 1-dose 75+ series) 2023 [facility]-Influenza Vaccine (#1) 2025 [facility]-Diabetes: Hemoglobin A1C Discontinued 04/21/2023, 01/05/2023 [...] this topic Medical Devices Implanted Type Area Hazardous Material Specialist Device Identifier Shelf Expiration Date Model / Serial / Lot Chg Shell R3 3 Hole Acet 50mm - [id number] Implanted:Qty: 1 on 01/18/2023 by Jalen Sage MD at [facility] [place] Right: Hip [employer]-[id number] 09/29/2032 [id number] / / [id number] Liner R3 Xlpe 20deg 36mm X 50mm - [id number] Implanted:Qty: 1 on 01/18/2023 by Jalen Sage MD at [facility] [place] Right: Hip [employer]-[id number] 06/05/2032 [id number] / / [id number] Chg Screw Ref Spher Head 40mm - [id number] Implanted:Qty: 1 on 01/18/2023 by Jalen Sage MD at [facility] [place] Right: Hip [employer]-[id number] 07/13/2032 [id number] / / [id number] Chg Screw Ref Spher Head 20mm - [id number] Implanted:Qty: 1 on 01/18/2023 by Jalen Sage MD at [facility] [place] Right: Hip [employer]-[id number] 06/23/2032 [id number] / / [id number] Hip Stem Plus Sl Integr Nata Lat M Ti [place] 1 - [id number] Implanted:Qty: 1 on 01/18/2023 by Jalen Sage MD at [facility] [place] Right: Hip [employer]-[id number] 10/02/2028 [id number] / / [id number] Chg Head Oxinium Fem 10/26 36 - [id number] Implanted:Qty: 1 on 01/18/2023 by Jalen Sage MD at [facility] [place] Right: Hip [employer]-[id number] 09/18/2032 [id number] / / [id number] Procedures Procedure Name Priority Date/Time Associated Diagnosis [...] Adults <6.0% Children and Adolescents <7.5% Source: [place] [employer]. Standards of medical care in diabetes,2017. Diabetes Care.2017:40 (suppl 1):S1-S135. HbA1c assay performed by an ion-exchange chromatography method that is certified traceable to the DCCT. Jalen Sage MD LAB BLOOD ORDERABLES Final R esult [facility] [address] [place] [address] from Last 3 Months or Most Recently Relevant to Health Maintenance Insurance MEDICARE [employer] Advance Directives * Full Code (Latest Code Status on File) Date Activated Date Inactivated Comments 01/18/2023 11:25 AM 01/19/2023 4:33 PM Question Answer Comments Patient has decision-making capacity? Yes Care Teams Manager Cardiac Relationship Specialty Start Date End Date Nirali Esqueda APRN [address] [place] [address] PCP - General 03/24/22
--- OUTSIDE RECORDS SUMMARY | 2025-06-02 13:59 | XMS_ITS | Referral Summary ---
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
--- OUTSIDE RECORDS SUMMARY | 2025-06-02 13:59 | XMS_ITS | Data Portability ---
Author Organization [facility] [employer], gantto., [facility] Address [address] [place] [address] Assessment No assessment recorded. Plan of Treatment Reminders Order Date Submit Date Provider Last Modified By Organization Details Last Modified Time Details Appointments FOLLOW UP 30 2024 11:30A M Damion Santos APRN Not available Not available Not available Lab urinalysi s, dipstick [address], [address] [place] [address], [id number], 05/19/2025 12:44:00 lipid panel, serum 2024 025 [facility], [address] [place] [address], [address], 04/19/2025 07:07:39 CBC w/ auto diff 2024 025 [facility]), [address] [place] [address], [address], 04/19/2025 07:07:38 CMP, serum or plasma 2024 025 [facility], [address] [place] [address], [address], 04/19/2025 07:07:39 TSH + free T4, serum 2024 025 [place], [address] [place], [address], 04/19/2025 07:07:38 cobalamin and folate panel, serum [address] [facility] [address] [place], [address], 04/19/2025 07:07:39 vitamin D, 25-hydrox y, total, serum [address] [facility] [address] [place], [address], 04/19/2025 07:07:40 HbA1c (hemoglob in A1c), blood 2024 025 [facility]), [address] [place], [address], 04/19/2025 07:07:40 HbA1c (hemoglob in A1c), blood 2023 024 [facility]), [address] [place], [address], 10/18/2024 11:08:49 vitamin D, 25-hydrox y, total, serum 2023 024 [facility]), [address] [place], [address], 10/18/2024 11:08:49 lipid panel, serum 2023 024 [facility]), [address] [place], [address], 10/18/2024 11:08:48 CBC w/ auto diff 2023 024 [facility]), [address] [place], [address], 10/18/2024 11:08:47 CMP, serum or plasma 2023 024 [facility]), [address] [place], [address], 10/18/2024 11:08:48 TSH + free T4, serum 2023 024 MERY[facility] ([facility]), [address] [facility], [place], [address], 10/18/2024 11:08:47 Referral pain managemen t referral - first available appt 2024 025 [email or web address] [facility], [address], [place], [address], 05/26/2025 13:22:10 Procedures None recorded. Surgeries None recorded. Imaging nerve conductio n study 2024 025 [email or web address] Not available 04/18/2025 14:33:50 ankle brachial index - first avail 2024 025 [facility] ([facility]), [address], [place], [address], 04/29/2025 10:00:46 Medication Orders Macrobid 100 mg capsule 2024 025 [facility], [facility] [place], [address], 05/21/2025 11:21:31 ergocalci ferol (vitamin D2) 1,250 mcg (50,000 unit) capsule 2024 [email or web address], [address] [place], [address], 05/19/2025 12:43:59 citalopra m 20 mg tablet 2024 025 [facility], [address] [place], [address], 04/18/2025 14:11:41 levothyro xine 75 mcg tablet 2024 025 [facility], [address] [place], [address], 04/18/2025 14:11:40 Aplisol 5 tub. unit/0.1 mL intraderm al injection solution 2024 025 [email or web address], [address] [place], [address], 01/16/2025 11:31:09 Patient TargetsNo targets recorded. Patient Instructions Encounter Date Encounter Id Patient Instructions Last Modified By Organization Details Last Modified Time 12/23/2024 [id number] learning about tuberculosis (TB) [email or web address] Not available 12/25/2024 13:50:51 04/18/2025 [id number] preventing osteoporosis: care instructions [email or web address] Not available 04/18/2025 12:13:52 Reason for Referral Pain Management Referral for Generalized aches and pains first available appt Referring Physician: Patsy Santos, Family Medicine, Encounter Date: 05/19/2025 Results Created Date Observation Date Name Description Value Unit Range Abnormal Flag Note LastModifiedBy Organization Detail LastModifiedTime 10/17/20 24 10/18/2024 TSH+F REE T4 TSH 3.560 uIU/m L 0.450- 4.500 normal Not Available [facility] ([facility]) [address] [place], [address], 10/18/2024 11:08:46 10/17/20 24 10/18/2024 TSH+F REE T4 T4,free(dire ct) 1.15 NG/dL 0.82-1 .77 normal Not Available [facility] ([facility]) [address] [place], [address], 10/18/2024 11:08:46 10/17/20 24 10/18/2024 CBC WITH DIFFE RENTI AL/PL ATELE T WBC 6.9 x10e3 /uL 3.4-10 .8 normal Not Available [facility] ([facility]) [address] [place], [address], 10/18/2024 11:08:47 10/17/20 24 10/18/2024 CBC WITH DIFFE RENTI AL/PL ATELE T RBC 3.97 x10e6 /uL 3.77-5 .28 normal Not Available [facility] ([facility]) [address] [place], [address], 10/18/2024 11:08:47 10/17/20 24 10/18/2024 CBC WITH DIFFE RENTI AL/PL ATELE T hemoglobin 12.6 g/dL 11.1-1 5.9 normal Not Available [facility] ([facility]) [address] [place], [address], 10/18/2024 11:08:47 10/17/20 24 10/18/2024 CBC WITH DIFFE RENTI AL/PL ATELE T hematocrit 38.2 % 34.0-4 6.6 normal Not Available [facility] ([facility]) [address] [place], [address], 10/18/2024 11:08:47 10/17/20 24 10/18/2024 CBC WITH DIFFE RENTI AL/PL ATELE T MCV 96 fL 79-97 normal Not Available [facility] ([facility]) [address] [place], [address], 10/18/2024 11:08:47 10/17/20 24 10/18/2024 CBC WITH DIFFE RENTI AL/PL ATELE T MCH 31.7 pg 26.6-3 3.0 normal Not Available [facility] ([facility]) [address] [place], [address], 10/18/2024 11:08:47 10/17/20 24 10/18/2024 CBC WITH DIFFE RENTI AL/PL ATELE T MCHC 33.0 g/dL 31.5-3 5.7 normal Not Available [facility] ([facility]) [address] [place], [address], 10/18/2024 11:08:47 10/17/20 24 10/18/2024 CBC WITH DIFFE RENTI AL/PL ATELE T RDW 12.9 % 11.7-1 5.4 Not Available [facility] ([facility]) [address] [facility], [place], [address], 10/18/2024 11:08:47 10/17/20 24 10/18/2024 CBC WITH DIFFE RENTI AL/PL ATELE T platelets 313 x10e3 /uL 150-45 0 normal Not Available [facility] ([facility]) [address] [facility], [place], [address], 10/18/2024 11:08:47 10/17/20 24 10/18/2024 CBC WITH DIFFE RENTI AL/PL ATELE T neutrophils 50 % not estab. normal Not Available [facility] ([facility]) [address] [facility], [place], [address], 10/18/2024 11:08:47 10/17/20 24 10/18/2024 CBC WITH DIFFE RENTI AL/PL ATELE T lymphs 37 % not estab. normal Not Available [facility] ([facility]) [address] [facility], [place], [address], 10/18/2024 11:08:47 10/17/20 24 10/18/2024 CBC WITH DIFFE RENTI AL/PL ATELE T monocytes 9 % not estab. normal Not Available [facility] ([facility]) [address] [facility], [place], [address], 10/18/2024 11:08:47 10/17/20 24 10/18/2024 CBC WITH DIFFE RENTI AL/PL ATELE T eos 3 % not estab. normal Not Available [facility] ([facility]) [address] [facility], [place], [address], 10/18/2024 11:08:47 10/17/20 24 10/18/2024 CBC WITH DIFFE RENTI AL/PL ATELE T basos 1 % not estab. normal Not Available [facility] ([facility]) [address] [place], [address], 10/18/2024 11:08:47 10/17/20 24 10/18/2024 CBC WITH DIFFE RENTI AL/PL ATELE T immature cells TRIBAL JUDGE Not Available [facility] ([facility]) [address] [place], [address], 10/18/2024 11:08:47 10/17/20 24 10/18/2024 CBC WITH DIFFE RENTI AL/PL ATELE T neutrophils (absolute) 3.5 x10e3 /uL 1.4-7. 0 normal Not Available [facility] ([facility]) [address] [place], [address], 10/18/2024 11:08:47 10/17/20 24 10/18/2024 CBC WITH DIFFE RENTI AL/PL ATELE T lymphs (absolute) 2.6 x10e3 /uL 0.7-3. 1 normal Not Available [facility] ([facility]) [address] [place], [address], 10/18/2024 11:08:47 10/17/20 24 10/18/2024 CBC WITH DIFFE RENTI AL/PL ATELE T monocytes(ab solute) 0.6 x10e3 /uL 0.1-0. 9 normal Not Available [facility] ([facility]) [address] [place], [address], 10/18/2024 11:08:47 10/17/20 24 10/18/2024 CBC WITH DIFFE RENTI AL/PL ATELE T eos (absolute) 0.2 x10e3 /uL 0.0-0. 4 normal Not Available [facility] ([facility]) [address] [place], [address], 10/18/2024 11:08:47 10/17/20 24 10/18/2024 CBC WITH DIFFE RENTI AL/PL ATELE T baso (absolute) 0.1 x10e3 /uL 0.0-0. 2 normal Not Available [facility] ([facility]) [address] [facility], [place], [address], 10/18/2024 11:08:47 10/17/20 24 10/18/2024 CBC WITH DIFFE RENTI AL/PL ATELE T immature granulocytes 0 % not estab. Not Available [facility] ([facility]) [address] [facility], [place], [address], 10/18/2024 11:08:47 10/17/20 24 10/18/2024 CBC WITH DIFFE RENTI AL/PL ATELE T immature grans (abs) 0.0 x10e3 /uL 0.0-0. 1 Not Available [facility] ([facility]) [address] [facility], [place], [address], 10/18/2024 11:08:47 10/17/20 24 10/18/2024 CBC WITH DIFFE RENTI AL/PL ATELE T NRBC TRIBAL JUDGE Not Available [facility] ([facility]) [address] [facility], [place], [address], 10/18/2024 11:08:47 10/17/20 24 10/18/2024 CBC WITH DIFFE RENTI AL/PL ATELE T hematology comments: TRIBAL JUDGE Not Available [facility] ([facility]) [address] [facility], [place], [address], 10/18/2024 11:08:47 10/17/20 24 10/18/2024 COMP. METAB OLIC PANEL (14) glucose 97 mg/dL 70-99 normal Not Available [facility] ([facility]) [address] [facility], [place], [address], 10/18/2024 11:08:48 10/17/20 24 10/18/2024 COMP. METAB OLIC PANEL (14) BUN 16 mg/dL 8-27 normal Not Available [facility] ([facility]) [address] [place], [address], 10/18/2024 11:08:48 10/17/20 24 10/18/2024 COMP. METAB OLIC PANEL (14) creatinine 0.83 mg/dL 0.57-1 .00 normal Not Available [facility] ([facility]) [address] [facility] [place], [address], 10/18/2024 11:08:48 10/17/20 24 10/18/2024 COMP. METAB OLIC PANEL (14) eGFR 73 mL/mi n/1.7 3 >59 normal Not Available [facility] ([facility]) [address] [facility], [place], [address], 10/18/2024 11:08:48 10/17/20 24 10/18/2024 COMP. METAB OLIC PANEL (14) BUN/creatini ne ratio 19 12-28 normal Not Available [facility] ([facility]) [address] [place], [address], 10/18/2024 11:08:48 10/17/20 24 10/18/2024 COMP. METAB OLIC PANEL (14) sodium 143 mmol/ L 134-14 4 normal Not Available [facility] ([facility]) [address] [place], [address], 10/18/2024 11:08:48 10/17/20 24 10/18/2024 COMP. METAB OLIC PANEL (14) potassium 5.1 mmol/ L 3.5-5. 2 normal Not Available [facility] ([facility]) [address] [place], [address], 10/18/2024 11:08:48 10/17/20 24 10/18/2024 COMP. METAB OLIC PANEL (14) chloride 103 mmol/ L 96-106 normal Not Available [facility] ([facility]) [address] [place], [address], 10/18/2024 11:08:48 10/17/20 24 10/18/2024 COMP. METAB OLIC PANEL (14) carbon dioxide, total 26 mmol/ L 20-29 normal Not Available [facility] ([facility]) [address] [place], [address], 10/18/2024 11:08:48 10/17/20 24 10/18/2024 COMP. METAB OLIC PANEL (14) calcium 9.7 mg/dL 8.7-10 .3 normal Not Available [facility] ([facility]) [address] [place], [address], 10/18/2024 11:08:48 10/17/20 24 10/18/2024 COMP. METAB OLIC PANEL (14) protein, total 6.6 g/dL 6.0-8. 5 normal Not Available [facility] ([facility]) [address] [place], [address], 10/18/2024 11:08:48 10/17/20 24 10/18/2024 COMP. METAB OLIC PANEL (14) albumin 4.2 g/dL 3.8-4. 8 normal Not Available [facility] ([facility]) [address] [place], [address], 10/18/2024 11:08:48 10/17/20 24 10/18/2024 COMP. METAB OLIC PANEL (14) globulin, total 2.4 g/dL 1.5-4. 5 Not Available [facility] ([facility]) [address] [place], [address], 10/18/2024 11:08:48 10/17/20 24 10/18/2024 COMP. METAB OLIC PANEL (14) bilirubin, total 0.2 mg/dL 0.0-1. 2 normal Not Available [facility] ([facility]) [address] [place], [address], 10/18/2024 11:08:48 10/17/20 24 10/18/2024 COMP. METAB OLIC PANEL (14) alkaline phosphatase 81 IU/L 44-121 normal Not Available [facility] ([facility]) [address] [facility] [place], [address], 10/18/2024 11:08:48 10/17/20 24 10/18/2024 COMP. METAB OLIC PANEL (14) AST (SGOT) 24 IU/L 0-40 normal Not Available [facility] ([facility]) [address] [place], [address], 10/18/2024 11:08:48 10/17/20 24 10/18/2024 COMP. METAB OLIC PANEL (14) ALT (SGPT) 12 IU/L 0-32 normal Not Available [facility] ([facility]) [address] [facility], [place], [address], 10/18/2024 11:08:48 10/17/20 24 10/18/2024 LIPID PANEL cholesterol, total 218 mg/dL 100-19 9 above high normal Not Available [facility] ([facility]) [address] [place], [address], 10/18/2024 11:08:48 10/17/20 24 10/18/2024 LIPID PANEL triglyceride s 111 mg/dL 0-149 normal Not Available [facility] ([facility]) [address] [place], [address], 10/18/2024 11:08:48 10/17/20 24 10/18/2024 LIPID PANEL HDL cholesterol 64 mg/dL >39 normal Not Available [facility]) [address] [place], [address], 10/18/2024 11:08:48 10/17/20 24 10/18/2024 LIPID PANEL VLDL cholesterol gee 20 mg/dL 5-40 Not Available [facility] ([facility]) [address] [place], [address], 10/18/2024 11:08:48 10/17/20 24 10/18/2024 LIPID PANEL LDL chol calc ([facility]) 134 mg/dL 0-99 above high normal Not Available [facility] ([facility]) [address] [place], [address], 10/18/2024 11:08:48 10/17/20 24 10/18/2024 LIPID PANEL LDL calc comment: TRIBAL JUDGE Not Available [facility] ([facility]) [address] [facility], [place], [address], 10/18/2024 11:08:48 10/17/20 24 10/18/2024 HEMOG LOBIN A1C hemoglobin A1C 6.0 % 4.8-5. 6 above high normal Predi abete s: 5.7 - 6.4 Diabe hyun: >6.4 Glyce tony contr ol for adult s with diabe hyun: <7.0 Not Available [facility] ([facility]) [address] [place], [address], 10/18/2024 11:08:48 10/17/20 24 10/18/2024 VITAM IN D, 25-HY DROXY vitamin D, 25-hydroxy 36.1 NG/mL 30.0-1 00.0 Vitam in D defic iency has been defin ed by the Insti tute of Medic ine and an Endoc rine Socie ty pract ice guide line as a level of serum 25-OH vitam in D less than 20 ng/mL (1,2) . The Endoc rine Socie ty went on to furth er defin e vitam in D insuf ficie ncy as a level betwe en 21 and 29 ng/mL (2). 1. IOM (Inst itute of Medic ine). 2010. Dieta ry refer ence clara es for calci um and D. Anupama acosta [place]: [facility] . 2. David moran MF, Vikki ey [place], Bisch off-F errar i KRISHNAMURTHY, et al. Evalu ation , treat ment, and preve ntion of vitam in D defic iency : an Endoc rine Socie ty clini gee pract ice guide line. JCEM. 2010; 96(7) :1911 -30. Not Available [facility] ([facility]) [address] [place], [address], 10/18/2024 11:08:49 04/18/2004/19/2025 TSH+F REE T4 TSH 7.810 uIU/m L 0.450- 4.500 above high normal Not Available [facility] ([facility]) [address] [place], [address], 04/19/2025 07:07:38 04/18/2004/19/2025 TSH+F REE T4 T4,free(dire ct) 0.93 NG/dL 0.82-1 .77 normal Not Available [facility] ([facility]) [address] [place], [address], 04/19/2025 07:07:38 04/18/20 25 04/19/2025 CBC WITH DIFFE RENTI AL/PL ATELE T WBC 6.5 x10e3 /uL 3.4-10 .8 normal Not Available [facility] ([facility]) [address] [place], [address], 04/19/2025 07:07:38 04/18/20 25 04/19/2025 CBC WITH DIFFE RENTI AL/PL ATELE T RBC 4.00 x10e6 /uL 3.77-5 .28 normal Not Available [facility] ([facility]) [address] [place], [address], 04/19/2025 07:07:38 04/18/20 25 04/19/2025 CBC WITH DIFFE RENTI AL/PL ATELE T hemoglobin 12.7 g/dL 11.1-1 5.9 normal Not Available [facility] ([facility]) [address] [place], [address], 04/19/2025 07:07:38 04/18/20 25 04/19/2025 CBC WITH DIFFE RENTI AL/PL ATELE T hematocrit 39.1 % 34.0-4 6.6 normal Not Available [facility] ([facility]) [address] [place], [address], 04/19/2025 07:07:38 04/18/20 25 04/19/2025 CBC WITH DIFFE RENTI AL/PL ATELE T MCV 98 fL 79-97 above high normal Not Available [facility] ([facility]) [address] [facility], [place], [address], 04/19/2025 07:07:38 04/18/20 25 04/19/2025 CBC WITH DIFFE RENTI AL/PL ATELE T MCH 31.8 pg 26.6-3 3.0 normal Not Available [facility] ([facility]) [address] [place], [address], 04/19/2025 07:07:38 04/18/20 25 04/19/2025 CBC WITH DIFFE RENTI AL/PL ATELE T MCHC 32.5 g/dL 31.5-3 5.7 normal Not Available [facility] ([facility]) [address] [place], [address], 04/19/2025 07:07:38 04/18/20 25 04/19/2025 CBC WITH DIFFE RENTI AL/PL ATELE T RDW 13.1 % 11.7-1 5.4 Not Available [facility] ([facility]) [address] [place], [address], 04/19/2025 07:07:38 04/18/20 25 04/19/2025 CBC WITH DIFFE RENTI AL/PL ATELE T platelets 285 x10e3 /uL 150-45 0 normal Not Available [facility] ([facility]) [address] [facility], [place], [address], 04/19/2025 07:07:38 04/18/20 25 04/19/2025 CBC WITH DIFFE RENTI AL/PL ATELE T neutrophils 58 % not estab. normal Not Available [facility] ([facility]) [address] [facility], [place], [address], 04/19/2025 07:07:38 04/18/20 25 04/19/2025 CBC WITH DIFFE RENTI AL/PL ATELE T lymphs 31 % not estab. normal Not Available [facility] ([facility]) [address] [facility], [place], [address], 04/19/2025 07:07:38 04/18/20 25 04/19/2025 CBC WITH DIFFE RENTI AL/PL ATELE T monocytes 8 % not estab. normal Not Available [facility] ([facility]) [address] [facility], [place], [address], 04/19/2025 07:07:38 04/18/20 25 04/19/2025 CBC WITH DIFFE RENTI AL/PL ATELE T eos 2 % not estab. normal Not Available [facility] ([facility]) [address] [place], [address], 04/19/2025 07:07:38 04/18/20 25 04/19/2025 CBC WITH DIFFE RENTI AL/PL ATELE T basos 1 % not estab. normal Not Available [facility] ([facility]) [address] [place], [address], 04/19/2025 07:07:38 04/18/20 25 04/19/2025 CBC WITH DIFFE RENTI AL/PL ATELE T immature cells TRIBAL JUDGE Not Available [facility] ([facility]) [address] [place], [address], 04/19/2025 07:07:38 04/18/20 25 04/19/2025 CBC WITH DIFFE RENTI AL/PL ATELE T neutrophils (absolute) 3.8 x10e3 /uL 1.4-7. 0 normal Not Available [facility] ([facility]) [address] [place], [address], 04/19/2025 07:07:38 04/18/20 25 04/19/2025 CBC WITH DIFFE RENTI AL/PL ATELE T lymphs (absolute) 2.0 x10e3 /uL 0.7-3. 1 normal Not Available [facility] ([facility]) [address] [place], [address], 04/19/2025 07:07:38 04/18/20 25 04/19/2025 CBC WITH DIFFE RENTI AL/PL ATELE T monocytes(ab solute) 0.5 x10e3 /uL 0.1-0. 9 normal Not Available [facility] ([facility]) [address] [place], [address], 04/19/2025 07:07:38 04/18/20 25 04/19/2025 CBC WITH DIFFE RENTI AL/PL ATELE T eos (absolute) 0.1 x10e3 /uL 0.0-0. 4 normal Not Available [facility] ([facility]) [address] [place], [address], 04/19/2025 07:07:38 04/18/20 25 04/19/2025 CBC WITH DIFFE RENTI AL/PL ATELE T baso (absolute) 0.0 x10e3 /uL 0.0-0. 2 normal Not Available [facility] ([facility]) [address] [place], [address], 04/19/2025 07:07:38 04/18/20 25 04/19/2025 CBC WITH DIFFE RENTI AL/PL ATELE T immature granulocytes 0 % not estab. Not Available [facility] ([facility]) [address] [facility], [place], [address], 04/19/2025 07:07:38 04/18/20 25 04/19/2025 CBC WITH DIFFE RENTI AL/PL ATELE T immature grans (abs) 0.0 x10e3 /uL 0.0-0. 1 Not Available [facility] ([facility]) [address] [facility], [place], [address], 04/19/2025 07:07:38 04/18/20 25 04/19/2025 CBC WITH DIFFE RENTI AL/PL ATELE T NRBC TRIBAL JUDGE Not Available [facility] ([facility]) [address] [facility], [place], [address], 04/19/2025 07:07:38 04/18/20 25 04/19/2025 CBC WITH DIFFE RENTI AL/PL ATELE T hematology comments: TRIBAL JUDGE Not Available [facility] ([facility]) [address] [facility], [place], [address], 04/19/2025 07:07:38 04/18/20 25 04/19/2025 COMP. METAB OLIC PANEL (14) glucose 106 mg/dL 70-99 above high normal Not Available [facility] ([facility]) [address] [place], [address], 04/19/2025 07:07:39 04/18/20 25 04/19/2025 COMP. METAB OLIC PANEL (14) BUN 19 mg/dL 8-27 normal Not Available [facility] ([facility]) [address] [place], [address], 04/19/2025 07:07:39 04/18/20 25 04/19/2025 COMP. METAB OLIC PANEL (14) creatinine 0.79 mg/dL 0.57-1 .00 normal Not Available [facility] ([facility]) [address] [place], [address], 04/19/2025 07:07:39 04/18/20 25 04/19/2025 COMP. METAB OLIC PANEL (14) eGFR 77 mL/mi n/1.7 3 >59 normal Not Available [facility] ([facility]) [address], [place], [address], 04/19/2025 07:07:39 04/18/20 25 04/19/2025 COMP. METAB OLIC PANEL (14) BUN/creatini ne ratio 24 12-28 normal Not Available [facility] ([facility]) [address] [place], [address], 04/19/2025 07:07:39 04/18/20 25 04/19/2025 COMP. METAB OLIC PANEL (14) sodium 141 mmol/ L 134-14 4 normal Not Available [facility] ([facility]) [address] [place], [address], 04/19/2025 07:07:39 04/18/20 25 04/19/2025 COMP. METAB OLIC PANEL (14) potassium 4.3 mmol/ L 3.5-5. 2 normal Not Available [facility] ([facility]) [address] [facility] [place], [address], 04/19/2025 07:07:39 04/18/20 25 04/19/2025 COMP. METAB OLIC PANEL (14) chloride 104 mmol/ L 96-106 normal Not Available [facility] ([facility]) [address] [facility] [place], [address], 04/19/2025 07:07:39 04/18/20 25 04/19/2025 COMP. METAB OLIC PANEL (14) carbon dioxide, total 21 mmol/ L 20-29 normal Not Available [facility] ([facility]) [address] [facility] [place], [address], 04/19/2025 07:07:39 04/18/20 25 04/19/2025 COMP. METAB OLIC PANEL (14) calcium 9.3 mg/dL 8.7-10 .3 normal Not Available [facility] ([facility]) [address] [place], [address], 04/19/2025 07:07:39 04/18/20 25 04/19/2025 COMP. METAB OLIC PANEL (14) protein, total 6.7 g/dL 6.0-8. 5 normal Not Available [facility] ([facility]) [address] [place], [id number], 04/19/2025 07:07:39 04/18/20 25 04/19/2025 COMP. METAB OLIC PANEL (14) albumin 4.2 g/dL 3.8-4. 8 normal Not Available [facility] ([facility]) [address] [place], [id number], 04/19/2025 07:07:39 04/18/20 25 04/19/2025 COMP. METAB OLIC PANEL (14) globulin, total 2.5 g/dL 1.5-4. 5 Not Available [facility] ([facility]) [address] [place], [id number], 04/19/2025 07:07:39 04/18/20 25 04/19/2025 COMP. METAB OLIC PANEL (14) bilirubin, total 0.4 mg/dL 0.0-1. 2 normal Not Available [facility] ([facility]) [address] [place], [id number], 04/19/2025 07:07:39 04/18/20 25 04/19/2025 COMP. METAB OLIC PANEL (14) alkaline phosphatase 82 IU/L 44-121 normal Not Available [facility] ([facility]) [address] [place], [address], 04/19/2025 07:07:39 04/18/20 25 04/19/2025 COMP. METAB OLIC PANEL (14) AST (SGOT) 16 IU/L 0-40 normal Not Available [facility] ([facility]) [address] [facility] [place], [address], 04/19/2025 07:07:39 04/18/20 25 04/19/2025 COMP. METAB OLIC PANEL (14) ALT (SGPT) 8 IU/L 0-32 normal Not Available [facility] ([facility]) [address] [place], [address], 04/19/2025 07:07:39 04/18/20 25 04/19/2025 LIPID PANEL cholesterol, total 231 mg/dL 100-19 9 above high normal Not Available [facility] ([facility]) [address] [place], [address], 04/19/2025 07:07:39 04/18/20 25 04/19/2025 LIPID PANEL triglyceride s 67 mg/dL 0-149 normal Not Available [facility] ([facility]) [address] [place], [address], 04/19/2025 07:07:39 04/18/20 25 04/19/2025 LIPID PANEL HDL cholesterol 76 mg/dL >39 normal Not Available [facility] ([facility]) [address] [place], [address], 04/19/2025 07:07:39 04/18/20 25 04/19/2025 LIPID PANEL VLDL cholesterol gee 11 mg/dL 5-40 Not Available [facility] ([facility]) [address] [place], [address], 04/19/2025 07:07:39 04/18/20 25 04/19/2025 LIPID PANEL LDL chol calc ([facility]) 144 mg/dL 0-99 above high normal Not Available [facility] ([facility]) [address] [place], [address], 04/19/2025 07:07:39 04/18/20 25 04/19/2025 LIPID PANEL LDL calc comment: TRIBAL JUDGE Not Available [facility] ([facility]) [address] [facility], [place], [address], 04/19/2025 07:07:39 04/18/20 25 04/19/2025 VITAM IN B12 AND FOLAT E vitamin B12 356 pg/mL 232-12 45 normal Not Available [facility] ([facility]) [address] [facility], [place], [address], 04/19/2025 07:07:39 04/18/20 25 04/19/2025 VITAM IN B12 AND FOLAT E folate (folic acid), serum 9.4 NG/mL >3.0 normal A serum folat e simin ntrat ion of less than 3.1 ng/mL is consi dered to repre sent clini gee defic iency . Not Available [facility] ([facility]) [address] [facility], [place], [address], 04/19/2025 07:07:39 04/18/20 25 04/19/2025 HEMOG LOBIN A1C hemoglobin A1C 5.7 % 4.8-5. 6 above high normal Predi abete s: 5.7 - 6.4 Diabe hyun: >6.4 Glyce tony contr ol for adult s with diabe hyun: <7.0 Not Available [facility] ([facility]) [address] [facility], [place], [address], 04/19/2025 07:07:40 04/18/20 25 04/19/2025 VITAM IN D, 25-HY DROXY vitamin D, 25-hydroxy 19.9 NG/mL 30.0-1 00.0 below low normal Vitam in D defic iency has been defin ed by the Insti tute of Medic ine and an Endoc rine Socie ty pract ice guide line as a level of serum 25-OH vitam in D less than 20 ng/mL (1,2) . The Endoc rine Socie ty went on to furth er defin e vitam in D insuf ficie ncy as a level betwe en 21 and 29 ng/mL (2). 1. IOM (Inst itute of Medic ine). 2010. Dieta ry refer ence intak es for calci um and D. Anupama acosta [place]: [facility] . 2. David moran MF, [place] ey [place], Bisarelis off-F errar i KRISHNAMURTHY, et al. Evalu ation , treat ment, and preve ntion of vitam in D defic iency : an Endoc rine Socie ty clini gee pract ice guide line. JCEM. 2010; 96(7) :1911 -30. Not Available [facility] ([facility]) [address] [facility], [place], [address], 04/19/2025 07:07:40 05/19/20 25 05/19/2025 urina lysis , dipst ick Leukocytes Small Not Available [address], [address], 05/19/2025 11:43:24 05/19/20 25 05/19/2025 urina lysis , dipst ick Nitrite negati ve Not Available [address], [address], 05/19/2025 11:43:24 05/19/20 25 05/19/2025 urina lysis , dipst ick Urobilinogen .2 Not Available [address], [address], 05/19/2025 11:43:24 05/19/20 25 05/19/2025 urina lysis , dipst ick Protein Negati ve Not Available [address], [address], 05/19/2025 11:43:24 05/19/20 25 05/19/2025 urina lysis , dipst ick pH 7.0 Not Available [address], [address], 05/19/2025 11:43:24 05/19/20 25 05/19/2025 urina lysis , dipst ick Blood Small Not Available [address], [address], 05/19/2025 11:43:24 05/19/20 25 05/19/2025 urina lysis , dipst ick Specific [place] 1.020 Not Available [address], [address], 05/19/2025 11:43:24 05/19/20 25 05/19/2025 urina lysis , dipst ick Ketone Negati ve Not Available [address], [address], 05/19/2025 11:43:24 05/19/20 25 05/19/2025 urina lysis , dipst ick Bilirubin Negati ve Not Available [address], [address], 05/19/2025 11:43:24 05/19/20 25 05/19/2025 urina lysis , dipst ick Glucose Negati ve Not Available [address], [address], 05/19/2025 11:43:24 05/19/20 25 05/19/2025 urina lysis , dipst ick Appearance Slight ly Cloudy Not Available [address], [address], 05/19/2025 11:43:24 05/19/20 25 05/19/2025 urina lysis , dipst ick Color Pale Yellow Not Available [address], [place], [address], 05/19/2025 11:43:24 10/29/20 24 10/29/2024 debra chavez am No observ ation record ed. [address], [place], [address], 01/06/2025 10:32:10 01/21/20 25 01/20/2025 XR, wrist No observ ation record ed. [address], [place], [address], 01/20/2025 16:48:01 04/29/20 25 04/28/2025 ankle brach ial index No observ ation record ed. [address], [place], [address], 05/05/2025 13:24:45 04/29/20 25 04/28/2025 nerve condu ction study /EMG (PROC ) No observ ation record ed. [facility] Not Available 05/05 13:24:31 04/30/20 25 04/28/2025 nerve condu ction study /EMG (PROC ) No observ ation record ed. [address] (Med Record) [address] [place], [place] [address]y [address], [place], [address], 05/05/2025 13:24:32 Result Notes None recorded. Problems Name Problem SNOMED Code Status Onset Date Resolution Date Notes Provider Name and Address Organization Details Recorded Time Pain in left knee Completed 201607/13/2017 Problem Code: M25.562; Problem Code Type: ICD-10; Not Available [facility] 22:46:06 Knee pain Completed 201607/13/2017 Problem Code: 719.46; Problem Code Type: ICD-9; Not Available [facility] 2 22:46:09 Synovial cyst of knee 125805367 Completed 201610/17/2017 Problem Code: M71.20; Problem Code Type: ICD-10; Not Available [facility] 2 22:46:08 Synovial cyst of poplitea l space Completed 201610/17/2017 Problem Code: 727.51; Problem Code Type: ICD-9; Not Available [facility] 2 22:46:09 Moderate major depressi on, single episode 27634539 Completed 201602/24/2020 Problem Code: F32.1; Problem Code Type: ICD-10; Not Available [facility] 2 22:46:05 Otalgia of left ear Completed 201612/09/2017 Not Available [facility] 2 22:46:05 Divertic ulum of [place] an tube 307545300 Completed 201612/09/2017 Problem Code: H69.82; Problem Code Type: ICD-10; Not Available [facility] 2 22:46:06 Dysfunct ion of eustachi an tube 68710606 Completed 201612/09/2017 Problem Code: 381.81; Problem Code Type: ICD-9; Not Available [facility] 2 22:46:08 Otalgia 20377900 Completed 201612/09/2017 Problem Code: 388.70; Problem Code Type: ICD-9; Not Available [facility] 2 22:46:08 Cardiova scular system problem 552913955 Completed 201612/09/2017 Problem Code: 785.9; Problem Code Type: ICD-9; Not Available [facility] 2 22:46:09 Hypothyr oidism 63307827 Active 2018 Not Available [facility] 2 22:46:05 Type 2 diabetes mellitus without complica tion 156498188 Active 2018 Not Available [facility] 2 22:46:05 Acute frontal sinusiti s 50446381 Active 2018 Problem Code: J01.10; Problem Code Type: ICD-10; Not Available [facility] 2 22:46:06 Overacti ve urinary bladder 689596406 Active 2018 Problem Code: N32.81; Problem Code Type: ICD-10; Not Available [facility] 2 22:46:08 Influenz a caused by Influenz a A virus 768829723 Active 2019 Not Available [facility] 2 22:46:06 Muscle pain 93866221 Completed 201902/24/2020 Problem Code: M79.10; Problem Code Type: ICD-10; Not Available [facility] 2 22:46:06 Pyrexia of unknown origin 3773209 Active 2019 Problem Code: R50.9; Problem Code Type: ICD-10; Not Available [facility] 2 22:46:06 Finding of body mass index 659589440 Active 2019 Problem Code: Z68.41; Problem Code Type: ICD-10; Not Available [facility] 2 22:46:08 Mixed hyperlip idemia 600864835 Active 2019 Problem Code: E78.2; Problem Code Type: ICD-10; Not Available [facility] 2 22:46:05 Influenz a vaccine needed 22869036505 Active 2019 Problem Code: Z23; Problem Code Type: ICD-10; Not Available [facility] 2 22:46:07 Body mass index 30+ - obesity 123107494 Completed 201901/01/2021 Problem Code: Z68.39; Problem Code Type: ICD-10; Not Available [facility] 2 22:46:07 Epidermo id cyst of skin 304969408 Completed 201907/01/2020 Problem Code: L72.3; Problem Code Type: ICD-10; Not Available [facility] 2 22:46:06 Epidermo id cyst of skin 149848369 Active 2019 Problem Code: L72.3; Problem Code Type: ICD-10; Not Available [facility] 2 22:46:08 Benign paroxysm al position al vertigo or nystagmu s 894218280 Active 2020 Not Available [facility] 2 22:46:05 Body mass index 30+ - obesity 293617417 Active 2020 Problem Code: Z68.37; Problem Code Type: ICD-10; Not Available [facility] 2 22:46:07 Pain in limb 64099247 Active 2020 Not Available [facility] 2 22:46:06 Trochant luigi bursitis of right hip 16604686143 9100 Active 2020 Not Available [facility] 2 22:46:06 General examinat ion of patient Active 2020 Not Available [facility] 2 22:46:07 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 4 11:51:19 Urinary symptoms 457643913 Active 2023 Patricia waldrop, [employer] 4 10:46:09 Hyperlip idemia 69847186 Active 2024 Patricia waldrop, [employer] 5 11:27:21 Fatigue 49981997 Active 2024 Patricia waldrop, [employer] 5 11:27:21 Hypergly cemia 07768920 Active 2024 Patricia waldrop, [employer] 5 11:27:21 Notes:*Problem Name: Other s pecified symptoms and signs involving the circulatory and respiratory systems *Problem Status: Acute *Comments: *Problem Code: R09.89 *Problem Code Type: ICD-10 *Note Date: 10/10/2017 Problem Notes None recorded. Procedures Surgical History Date Name Laterality Status Provider Name and Address Organization Details Recorded Time 06/29/20 17 hysterectomy completed Not Available [facility] 022 22:56:35 Cataract Surgery completed Yanely [employer]. 09/12/2023 14:03:23 Joint Replacement completed [employer]. 09/12/2023 14:03:23 Imaging Results None recorded. Procedure [...] completed Not Available Not Available Not Available Macrobid 100 mg capsule Take 1 capsule every 12 hours by oral route for 7 days. 2024 active Not Available Not Available Not Avai lable meloxicam 7.5 mg tablet Take 1 tablet [...] in Arterial blood by Pulse oximetry Systolic And Diastolic Provider Name and Address Organization Details Last Updated DateTime 5 157.48 cm 39.5 kg/m2 84613.9 5 g 83 /min 95 % 95 % 138/84 mm[Hg] Patricia [employer] 5 11:31:06 Date Recorded Body height Body mass index (BMI) Body weight Heart rate Oxygen saturation Oxygen saturation in Arterial blood by Pulse oximetry Systolic And Diastolic Provider Name and Address Organization Details Last Updated DateTime 5 157.48 cm 40.1 kg/m2 34060.7 3 g 87 /min 91 % 91 % 125/82 mm[Hg] Patricia Garcia [employer] 5 11:40:56 Date Recorded Body height Body mass index (BMI) Body weight Heart rate Oxygen saturation Oxygen saturation in Arterial blood by Pulse oximetry Systolic And Diastolic Provider Name and Address Organization Details Last Updated DateTime 5 157.48 cm 40.1 kg/m2 50136.8 3 g 75 /min 92 % 92 % 133/84 mm[Hg] Delmy Torrez [employer] 5 11:42:50 Date Recorded Body height Body mass index (BMI) Body weight Heart rate Oxygen saturation Oxygen saturation in Arterial blood by Pulse oximetry Systolic And Diastolic Provider Name and Address Organization Details Last Updated DateTime 4 157.48 cm 39.5 kg/m2 97886.9 5 g 80 /min 93 % 93 % 121/69 mm[Hg] Patricia Garcia [employer] 4 13:55:11 Social History Question Answer Notes LastModified by Organizat ion Details LastModified Time Tobacco Smoking Status Former Smoker Yanely waldrop, [employer] 07/14/2023 11:36:36 Do You Have An Advance [...] 09/12/2023 When Did You Quit Smoking? 16+yearssince lastcigarette Information not available 09/12/2023 Are There Any Guns Present In Your Home? Yes Information not available 09/12/2023 Which Of Your Hands Is Dominant? Right Information n ot available 07/14/2023 What Is Your Home Situation? Other Information not available 09/12/2023 Do You Have A Medical Power Of Launch Engineer? No Information not available 09/12/2023 What Was The Date Of Your Most Recent Tobacco Screening? 05/19/2025 [email or web address] Information not available 05/19/2025 What Is Your Current Pack Years? 10packyears [email or web address] Information not available 01/16/2025 Do You Have [...] How Much Tobacco Do You Smoke? No [email or web address] Information not available 04/17/2024 What Types Of [...] have you been involved with bullying? No Information not available 09/12/2023 Family History Relationship Description Onset Age of this Age Resolved Age Notes LastModified by Organization Details LastModified Time Unspecified Relation Family history of Myocardial infarction [email or web address] Not available 09:38:45 Unspecified Relation Family history of malignant neoplasm [email or web address] Not available 03/2024 09:38:41 Unspecified Relation Family history of Hypertension [email or web address] Not available 04/17/2024 09:38:39 Unspecified Relation Family history of diabetes mellitus type 2 [email or web address] Not available 03/2024 09:38:36 Medical History Condition Response Emergency room visit since last appointm ent. N Hypothyroidism Y High Cholesterol Y Hospitalizations N Diabetes Y Gynecological History Statement/Question Response Menses Monthly N HPV Vaccine N Date of Last Pap Smear Most Recent Mammogram Age at First Child 15 Obstetrics History GPAL:G 0 P 0 0 0 0 Immunizations Vaccine Type Date Status Note Provider Name and Address Organization Details Recorded Time pneumococcal polysaccharide PPV23 020 completed Not Available [facility] 07/19/2022 22:59:44 zoster recombinant 024 cancelled patient objection Patsy Santos, PRODUCT ASSURANCE ENGINEER [address] [place] [address], [place], [address], [employer] 03/19/2024 15:39:05 pneumococcal polysaccharide PPV23 024 cancelled patient objection Patsy Santos [address], [address], [employer] 03/19/2024 15:39:05 zoster recombinant 024 cancelled patient objection Patsy Santos, [address], [address], [facility] [employer] 10/17/2024 15:52:54 pneumococcal polysaccharide PPV23 024 cancelled patient objection Patsy Santos [address], [address], [facility] [employer] 10/17/2024 15:52:54 Influenza, high-dose, trivalent, PF 024 cancelled patient objection Patsy Santos [address], [address], [facility] [employer] 10/17/2024 15:52:54 COVID-19, mRNA, LNP-S, PF, megha-sucrose, 30 mcg/0.3 mL cancelled patient objection Patsy Santos [address], [address], [facility] [employer] 10/17/2024 15:52:54 Past Encounters Encounter ID Performer Location Encounter Start Date Encounter Closed Date Diagnosis/Indication Diagnosis SNOMED-CT Code Diagnosis ICD10 Code Diagnosis Note [id number] Patsy Santos [address] [address] 07/14/2023 10:47:44 07/14/2023 12:16:30 Hyperlipidemia 62408210 E78.5 Hyperglycemia 16400304 R 73.9 Hypothyroidism 74786971 E03.9 Fatigue 28981743 R53.83 Vitamin D deficiency 347 30726 E55.9 Vitamin B deficiency 479 80301 E53.9 Long-term drug therapy 510024811 Z79.899 Spasm of u rinary bladder 173938008 N32.89 Vertigo 697732674 R42 Allergic rhinitis 138071 04 J30.9 Normal bod y mass index 15365983 Z68.52 [id number] [place] [address] 09/12/2023 13:50:10 09/12/2023 14:31:39 Elevated blood-pressure reading without diagnosis of hypertension 129183067 R03.0 Hypothyroidism 19672693 E03.9 Hyperlipidemia 67473035 E78.5 Vitamin D deficiency 347 82155 E55.9 Dizziness 753007019 R42 Body mass index 30+ - obesity 447213322 Z68.38 [id number] [place] [address] 09/25/2023 10:18:14 09/25/2023 11:01:59 Elevated blood-pressure reading without diagnosis of hypertension 678783561 R03.0 Body mass index 30+ - obesity 730040392 Z68.38 [id number] Patsy Santos [place] [address] 0 11/23/2023 10:43:00 11/23/2023 11:23:51 Low back pain 880289683 M54.50 Acute urin brian tract infection 281141553 N39.0 Body mass index 30+ - obesity 307395740 Z68.38 [id number] [place] [address] 12/12/2023 11:24:13 12/12/2023 12:04:51 History of urinary tract infection 6435786271 107 Z87.440 Acute urin brian tract infection 886716911 N39.0 Abdominal pain 92885213 R10.9 Hypothyroidism 88125425 E03.9 Mixed hyperlipidemia 267 619736 E78.2 Fatigue 91880868 R53.83 Body mass index 30+ - obesity 888986215 Z68.38 [id number] [place] [address] 03/19/2024 13:47:45 03/19/2024 14:34:59 Hypothyroidism 27631251 E03.9 Adult heal th examination 606328196 Z00.00 Vaccine de clined by patient 2832032524 02 Z28.20 vis given for pt education Dizziness 318353753 R42 Body mass index 30+ - obesity 246818560 Z68.38 [id number] ANDREW CASEY, [facility] [address] 04/17/2024 09:22:11 04/17/2024 09:53:33 Dysuria 56975395 R30.0 Acute urin brian tract infection 924979534 N39.0 [id number] Ruby Severino, [employer] [place] [address] 05/17/2024 15:22:24 05/17/2024 16:17:42 Recurrent urinary tract infection 672651513 N39.0 [id number] Patsy Santos [place] [address] 0 07/05/2024 10:25:31 07/05/2024 11:36:21 Urinary symptoms 709931825 R39.9 Acute urin brian tract infection 617850539 N39.0 Fatigue 37293769 R53.83 Vitamin D deficiency 347 08544 E55.9 Hyperglycemia 99814411 R 73.9 Hyperlipidemia 40211070 E78.5 Body mass index 30+ - obesity 452415586 Z68.38 Unsteady when walking 22 565593 R26.89 [id number] Patsy Santos [place] [address] 0 10/17/2024 13:37:29 10/17/2024 14:34:39 Vaccine declined by patient 5369390715 02 Z28.20 vis given for pt education Fatigue 88814252 R53.83 Hyperlipidemia 70570893 E78.5 Hyperglycemia 02354027 R 73.9 Vitamin D deficiency 347 48689 E55.9 Body mass index 30+ - obesity 995271696 Z68.38 [id number] Ruby SeverinoTAMEKA [place] [address] 12/23/2024 14:41:32 12/23/2024 14:57:58 Tuberculosis screening 248477407 Z11.1 [id number] Patsy Santos [place] [address] 0 01/16/2025 11:24:01 01/16/2025 11:50:09 Hypothyroidism 87125317 E03.9 Overactive urinary bladder 528705124 N32.81 Body mass index 30+ - obesity 779935539 Z68.38 [id number] Patsy Santos [place] [address] 0 04/18/2025 11:24:55 04/18/2025 12:00:16 Hyperlipidemia 25004101 E78.5 Fatigue 79507694 R53.83 Hyperglycemia 60161022 R 73.9 Osteoporos is screening declined 4080044755 10846 Z53.20 Hypothyroidism 79484299 E03.9 Moderate r ecurrent major depression 88271994 F33.1 Pain in bi lateral legs 9165451465 3302539 M79.604 M79.605 Body mass index 40+ - severely obese 260930506 Z68.41 [id number] Patsy Santos [place] [address] 0 05/19/2025 11:25:18 05/19/2025 12:17:39 Increased frequency of urination 928738334 R35.0 Vitamin D deficiency 347 56645 E55.9 Acute urin brian tract infection 543581256 N39.0 Generalize d aches and pains 24223073 R52 Body mass index 40+ - severely obese 567374193 Z68.41 Health Concerns Section Related Observation LastModified by Organization Detai ls LastModified Time None Recorded Concern Status LastModified by Organization Details LastModified Time None Recorded Advance Directives Directive N: Payers Insurance Date Sequence Insurance Name Policy Number Policy Henry Covered Member ID Henry Member ID Guarantor Name 05/16/2025 2 [employer] (MEDICARE SUPPLEMENT) Fátima De Luna [id number] Fátima De Luna 07/14/2023 1 *SELF PAY* Do jessy De Luna 05/16/2025 [place] [employer] [facility] Fátima De Luna [id number] 2 Fátima De Luna 05/16/2025 1 [place] Fátima De Luna [id number] 2 Fátima De Luna Notes Date Note Type Note Provider Name and Address Organization Details Recorded Time 10/17/2024 text/html pt here today fo r a f/u on labs. pt states shes doing well. pt states that she has a left knee replacement scheduled for nov 2024. pt states that she has been trying to do a low carb diet for around 3 weeks and hasnt lost any weight. i tried to explain to pt that she probably needs to stick with that diet a little longer to see any results. pt asked for some diet medicine . i told pt that insurance isnt going to pay for injectables unless she is diabetic. adipex is just not a good idea at her age. i tried to explain to pt unless she changes her eating habits there is not diet that is going to work. pt goes on about ozempic and that she took that before a long time ago when her A1C was 7.0 but only took it for 2 weeks because she was scared. again explained to pt that her A1C is not high enough and that her insurance is not going to pay for that medication at this time. Patsy Santos APRN [address] [place], [address], [employer] 10/17/2024 15:54:44 01/16/2025 text/html 74 year old satinder hicks presents for chronic disease fu. Denies acute concerns at this time. States she is doing well on all medications without AE. Will refill medication today and will do labs at next f/u. pt agrees Patsy Santos APRN [address] [place], [address], [employer] 01/16/2025 12:25:06 04/18/2025 text/html pt here today fo r [...] EVH and ADAM. Patsy Santos APRN [address] [place], [address], [employer] 04/18/2025 12:13:49 05/19/2025 text/html pt here today fo r refills. pt states shes doing well on current medication regime. went over recent test results with pt. pt states that her feet and legs are still hurting. states that they do not hurt at night but if she is on her legs more than 15 min they hurt and she is unable to stand or walk on them. i suggested pt to see pain barbara. pt is agreeable. pt also c/o urine frequency for the past couple days. UA with leuks and blood. i will treat for a UTI. pt to increase water intake, avoid soaking in baths, wipe front to back after toileting. return for worsening symptoms. Patsy Santos APRN [address] [facility], [place], [address], [employer] 05/19/2025 12:44:39 OBGyn Episode No OBEpisode recorded."
--- OUTSIDE RECORDS SUMMARY | 2025-06-02 13:59 | XMS_ITS | Encounter Summary ---
Author Organization [facility] Address [address] [place] [address] Care Team Providers Care Architectural Drafter Name Role Phone Nirali Esqueda APRN Primary Care Provider [phone] Reason for Referral * Consultation (Routine) - Closed Specialty Diagnoses / Procedures Referred By Nalini t Referred To Contact Pain Medicine Diagnoses Osteoarthritis of left knee, unspecified osteoarthritis type Alexis Lovell DO [address] [place] [address] Phone: tel: fax: [facility] Interventional Pain Medicine [address] [place] [address] Phone: tel: fax: Referral ID Status Reason Start Date Expiration Date V isits Requested Visits Authorized [id number] Closed Specialty Services Required 08/02/2024 02/01/2026 1 1 Encounter Details Date Type Department Care Team (Latest Contact Info) Description 08/02/2024 Community [facility] Community Practice [address] [place] [address] Alexis Lovell DO [address] [place] [address] Osteoarthritis of left knee, unspecified osteoarthritis type [...] drink first t norma in the morning (EYE-SHOEMAKING CUTTER) to steady your nerves or to get [...] documented as of this encounter Care Teams Architectural Drafter Relationship Specialty Start Date End Date Nirali Esqueda APRN [address] [place] [address] PCP - General 03/24/22 documented as of this encounter
--- OUTSIDE RECORDS SUMMARY | 2025-06-02 13:59 | XMS_ITS | Continuity of Care Document ---
Author Organization [place] [facility] Address [facility] [place] [address] Assessment No assessment recorded. Plan of Treatment Reminders Order Date Submit Date Provider Last Modified By Organization Details Last Modified Time Details Appointments FOLLOW UP 30 2024 11:30A M Damion Santos APRN Not available Not available Not available Lab urinalysi s, dipstick 2024 025 [email or web address] [facility], [facility], [place], [address], 05/19/2025 12:44:00 Referral pain managemen t referral - first available appt 2024 025 [email or web address] [facility], [address], [place], [address], 05/26/2025 13:22:10 Procedures None recorded. Surgeries None recorded. Imaging None recorded. Medication Orders Macrobid 100 mg capsule 2024 025 MERYL [facility], [address] [place], [address], 05/21/2025 11:21:31 ergocalci ferol (vitamin D2) 1,250 mcg (50,000 unit) capsule 2024 025 [email or web address] [facility], [address] [place], [address], 05/19/2025 12:43:59 Patient TargetsNo targets recorded. Patient InstructionsNo instructions recorded. Reason for Referral Pain Management Referral for Generalized aches and pains first available appt Referring Physician: Patsy Santos, Family Medicine, Encounter Date: 05/19/2025 Results Created Date Observation Date Name Description Value Unit Range Abnormal Flag Note LastModifiedBy Organization Detail LastModifiedTime 05/19/2005/19/2025 urina lysis , dipst ick Leukocytes Small Not Available [address], [address], 05/19/2025 11:43:24 05/19/20 25 05/19/2025 urina lysis , dipst ick Nitrite negati ve Not Available [address], [address], 05/19/2025 11:43:24 05/19/20 25 05/19/2025 urina lysis , dipst ick Urobilinogen .2 Not Available [address], [address], 05/19/2025 11:43:24 05/19/20 25 05/19/2025 urina lysis , dipst ick Protein Negati ve Not Available [address], [address], 05/19/2025 11:43:24 05/19/20 25 05/19/2025 urina lysis , dipst ick pH 7.0 Not Available [address], [address], 05/19/2025 11:43:24 05/19/20 25 05/19/2025 urina lysis , dipst ick Blood Small Not Available [address], [address], 05/19/2025 11:43:24 05/19/20 25 05/19/2025 urina lysis , dipst ick Specific Gibson 1.020 Not Available [address], [address], 05/19/2025 11:43:24 05/19/20 25 05/19/2025 urina lysis , dipst ick Ketone Negati ve Not Available [address], [address], 05/19/2025 11:43:24 05/19/20 25 05/19/2025 urina lysis , dipst ick Bilirubin Negati ve Not Available [address], [address], 05/19/2025 11:43:24 05/19/20 25 05/19/2025 urina lysis , dipst ick Glucose Negati ve Not Available [address], [address], 05/19/2025 11:43:24 05/19/20 25 05/19/2025 urina lysis , dipst ick Appearance Slight ly Cloudy Not Available [address], [address], 05/19/2025 11:43:24 05/19/20 25 05/19/2025 urina lysis , dipst ick Color Pale Yellow Not Available [address], [address], 05/19/2025 11:43:24 04/29/20 25 04/28/2025 ankle brach ial index No observ ation record ed. [email or web address] [facility] [address], [place], [address], 05/05/2025 13:24:45 04/29/20 25 04/28/2025 nerve condu ction study /EMG (PROC ) No observ ation record ed. [email or web address] Not Available 05/05 13:24:31 04/30/20 25 04/28/2025 nerve condu ction study /EMG (PROC ) No observ ation record ed. [email or web address] [facility] (Med Record) [address], [place], [address], 05/05/2025 13:24:32 Result Notes None recorded. Problems Name Problem SNOMED Code Status Onset Date Resolution Date Notes Provider Name and Address Organization Details Recorded Time Pain in left knee Completed 201607/13/2017 Problem Code: M25.562; Problem Code Type: ICD-10; Not Available [facility] 2 22:46:06 Knee pain Completed 201607/13/2017 Problem Code: 719.46; Problem Code Type: ICD-9; Not Available [facility] 2 22:46:09 Synovial cyst of knee 430515965 Completed 201610/17/2017 Problem Code: M71.20; Problem Code Type: ICD-10; Not Available [facility] 2 22:46:08 Synovial cyst of poplitea l space Completed 201610/17/2017 Problem Code: 727.51; Problem Code Type: ICD-9; Not Available [facility] 2 22:46:09 Moderate major depressi on, single episode 83093031 Completed 201602/24/2020 Problem Code: F32.1; Problem Code Type: ICD-10; Not Available [facility] 2 22:46:05 Otalgia of left ear Completed 201612/09/2017 Not Available [facility] 2 22:46:05 Divertic ulum of E[place] an tube 582705888 Completed 201612/09/2017 Problem Code: H69.82; Problem Code Type: ICD-10; Not Available [facility] 2 22:46:06 Dysfunct ion of eustachi an tube 26045795 Completed 201612/09/2017 Problem Code: 381.81; Problem Code Type: ICD-9; Not Available [facility] 2 22:46:08 Otalgia 19202025 Completed 201612/09/2017 Problem Code: 388.70; Problem Code Type: ICD-9; Not Available [facility] 2 22:46:08 Cardiova scular system problem 587283832 Completed 201612/09/2017 Problem Code: 785.9; Problem Code Type: ICD-9; Not Available [facility] 2 22:46:09 Hypothyr oidism 50392466 Active 2018 Not Available [facility] 2 22:46:05 Type 2 diabetes mellitus without complica tion 888406028 Active 2018 Not Available [facility] 2 22:46:05 Acute frontal sinusiti s 40507988 Active 2018 Problem Code: J01.10; Problem Code Type: ICD-10; Not Available [facility] 2 22:46:06 Overacti ve urinary bladder 249313339 Active 2018 Problem Code: N32.81; Problem Code Type: ICD-10; Not Available [facility] 2 22:46:08 Influenz a caused by Influenz a A virus 184263035 Active 2019 Not Available [facility] 2 22:46:06 Muscle pain 10696778 Completed 201902/24/2020 Problem Code: M79.10; Problem Code Type: ICD-10; Not Available [facility] 2 22:46:06 Pyrexia of unknown origin 9352311 Active 2019 Problem Code: R50.9; Problem Code Type: ICD-10; Not Available [facility] 2 22:46:06 Finding of body mass index 854865653 Active 2019 Problem Code: Z68.41; Problem Code Type: ICD-10; Not Available [facility] 2 22:46:08 Mixed hyperlip idemia 323062579 Active 2019 Problem Code: E78.2; Problem Code Type: ICD-10; Not Available [facility] 2 22:46:05 Influenz a vaccine needed 00917032458 06 Active 2019 Problem Code: Z23; Problem Code Type: ICD-10; Not Available [facility] 2 22:46:07 Body mass index 30+ - obesity 790128244 Completed 201901/01/2021 Problem Code: Z68.39; Problem Code Type: ICD-10; Not Available [facility] 2 22:46:07 Epidermo id cyst of skin 606073721 Completed 201907/01/2020 Problem Code: L72.3; Problem Code Type: ICD-10; Not Available [facility] 2 22:46:06 Epidermo id cyst of skin 142312995 Active 2019 Problem Code: L72.3; Problem Code Type: ICD-10; Not Available [facility] 2 22:46:08 Benign paroxysm al position al vertigo or nystagmu s 285790807 Active 2020 Not Available [facility] 2 22:46:05 Body mass index 30+ - obesity 982683182 Active 2020 Problem Code: Z68.37; Problem Code Type: ICD-10; Not Available [facility] 2 22:46:07 Pain in limb 68399593 Active 2020 Not Available [facility] 2 22:46:06 Trochant luigi bursitis of right hip 31457626003 9100 Active 2020 Not Available [facility] 2 22:46:06 General examinat ion of patient Active 2020 Not Available [facility] 2 22:46:07 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 4 11:51:19 Urinary symptoms 850540397 Active 2023 Patricia waldrop, [employer] 4 10:46:09 Hyperlip idemia 96294377 Active 2024 Patricia waldrop, [employer] 5 11:27:21 Fatigue 55267587 Active 2024 Patricia waldrop, [employer] 5 11:27:21 Hypergly cemia 85021376 Active 2024 Patricia waldrop, [employer] 5 11:27:21 Notes:*Problem Name: Other s pecified symptoms and signs involving the circulatory and respiratory systems *Problem Status: Acute *Comments: *Problem Code: R09.89 *Problem Code Type: ICD-10 *Note Date: 10/10/2017 Problem Notes None recorded. Procedures Surgical History Date Name Laterality Status Provider Name and Address Organization Details Recorded Time 06/29/20 17 hysterectomy completed Not Available [facility] 022 22:56:35 Cataract Surgery completed [employer] 09/12/2023 14:03:23 Joint Replacement completed [employer] 09/12/2023 14:03:23 Imaging Results None recorded. Procedure [...] Updated DateTime 5 157.48 cm 40.1 kg/m2 39863.8 3 g 75 /min 92 % 92 % 133/84 mm[Hg] Delmy Torrez [place] - [employer] 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 No Information not available 09/12/2023 What Was The Date Of Your Most Recent Tobacco Screening? 05/19/2025 [email or web address] Information not available 05/19/2025 What Is Your [...] How Much Tobacco Do You Smoke? No [email or web address] Information not available 04/17/2024 What Types Of [...] Unspecified Relation Family history of Myocardial infarction [email or web address] Not available 09:38:45 Unspecified Relation Family history of malignant neoplasm [email or web address] Not available 03/2024 09:38:41 Unspecified Relation Family history of Hypertension [email or web address] Not available 04/17/2024 09:38:39 Unspecified Relation Family history of diabetes mellitus type 2 [email or web address] Not available 03/2024 09:38:36 Medical History Condition [...] recombinant 024 cancelled patient objection Patsy Santos, [employer] [address] [place], [address], [facility] [employer] 03/19/2024 15:39:05 pneumococcal polysaccharide PPV23 cancelled patient objection Patsy Santos, [employer] [address] [place] [address], [phone], [employer] 03/19/2024 15:39:05 zoster recombinant cancelled patient objection Patsy Santos [employer] [address] [place] [address], [phone], [employer] 10/17/2024 15:52:54 pneumococcal polysaccharide PPV23 cancelled patient objection Patsy Santos, [employer] [address] [place] [address], [phone], [employer] 10/17/2024 15:52:54 Influenza, high-dose, trivalent, PF cancelled patient objection Patsy Santos [employer] [address], [address], [employer] 10/17/2024 15:52:54 COVID-19, mRNA, LNP-S, PF, megha-sucrose, 30 mcg/0.3 mL cancelled patient objection Patsy Santos [address], [address], [employer] 10/17/2024 15:52:54 Past Encounters Encounter ID Performer Location Encounter Start Date Encounter Closed Date Diagnosis/Indication Diagnosis SNOMED-CT Code Diagnosis ICD10 Code Diagnosis Note [id number] Patsy Santos [address] [address] 05/19/2025 11:25:18 05/19/2025 12:17:39 Increased frequency of urination 996091768 R35.0 Vitamin D deficiency 347 80445 E55.9 Acute urin brian tract infection 421941095 N39.0 Generalize d aches and pains 81194153 R52 Body mass index 40+ - severely obese 044322583 Z68.41 Health Concerns Section Related Observation LastModified by Organization Detai ls LastModified Time None Recorded Concern Status LastModified by Organization Details LastModified Time None Recorded Payers Encounter Date Sequence Insurance Name Policy Number Policy Henry Covered Member ID Henry Member ID Guarantor Name 05/19/2025 1 [place] Fátima De Luna [id number] Fátima De Luna 05/19/2025 2 [employer] (MEDICARE SUPPLEMENT) Fátima De Luna [id number] Fátima De Luna Notes Date Note Type Note Provider Name and Address Organization Details Recorded Time 05/19/2025 text/html pt here today fo r [...] for worsening symptoms. Patsy Santos APRN [address] [facility], [place], [address], [facility] [employer] [employer] 05/19/2025 12:44:39 OBGyn Episode No OBEpisode recorded.
--- NOTE | 2025-06-02 14:48 | EXP.PAIN.OV ---
HPI Data of Consult Patient: new to practice Consult date: 06/02/25 Requesting Physician: Ruby Lovell APRN Primary Care Provider: Patsy Santos APRN Reason for consult: Low back pain, bilateral feet numbness tingling History of present illness: Ms. De Luna is a 74 year old female who presents today as a new patient. She has a referral from Patsy Santos's office. Today she rates her pain a 6 out of 10. Patient states that she has had chronic bilateral feet burning and stinging sensations for longer than a year. Patient denies any specific trauma or injury that initially started this. Patient does state that in the past she had been diagnosed with diabetes however has never been put on any medication. She states that her last A1c was 6 something. Patient does state that that pain however is affecting her ability perform activities of daily living such as cooking and cleaning. Patient states that it is much worse when she is up on her feet and frequently has to stop and take multiple breaks. Patient denies any previous surgery for her back or feet or injections. Patient has had a right total hip replacement and a left knee arthroscopic procedure. Patient does feel like some of her right hip replacement may have affected her gait and aggravated some of her pain. Patient does use [id number] Tylenol and ibuprofen along with heat and ice and topicals with minimal changes. She is interested in any help we may be able to provide. Her Blaze has been reviewed and is appropriate. Pain at rest (0-10 scale): 6 Has patient had previous pain injection?: No Conservative treatment options previously tried: Home exercise plan (Longer than 12 weeks) cc:: CC: Ruby Lovell APRN [facility] Disclaimer: The information contained in this section may have been updated after the patient was seen, as this information can be updated by other users. Medical History Perforation of right tympanic membrane Sensorineural hearing loss (SNHL) of both ears mild predominantly SNHL bilaterally per [employer] Hypertrophy of tonsil Fluid level behind tympanic membrane Sinusitis Chronic sinusitis History of radiculopathy Back pain H/O bladder problems Hyperlipidemia Hypothyroidism Surgical History H/O tubal ligation History of knee surgery History of removal of cyst left wrist x2 History of carpal tunnel release History of joint replacement History of cataract extraction History of hysterectomy Family History Other Cancer Diabetes Heart attack Hypertension Social History Smoking Status: Former smoker how long ago did patient quit smokin alcohol intake: never substance use type: denies use current occupational status: retired Travel in the last 8 weeks?: None housing: house marital status: number of children: 3 Review of Systems Review of Systems Review of systems:: pertinent systems reviewed and negative unless documented below Review of systems (narrative): Review of Systems: General: No recent weight changes, no fever, no sleep disturbances Respiratory: No cough, no shortness of air, no recurring pulmonary infections Cardiovascular/peripheral vascular: No chest pain, no palpitations, no edema, no shortness of breath Gastrointestinal: No new onset incontinence, normal bowel movements reported Genitourinary: No new onset incontinence Musculoskeletal: Chronic feet numbness tingling, low back pain Psychiatric: [Normal mood/affect] Neurological: [Denies weakness in extremities], [denies balance issues] Meds Home Medications and Allergies Home Medications ?Medication ?Instructions ?Recorded ?Confirmed ?Type levothyroxine 75 mcg tablet 75 mcg PO DAILY 06/25/24 01/20/25 History levocetirizine 5 mg tablet 5 mg PO DAILY #120 tabs 07/22/24 01/20/25 Rx mirabegron 50 mg tablet,extended 50 mg PO DAILY 10/17/24 01/20/25 History release 24 hr (Myrbetriq) solifenacin 5 mg tablet 5 mg PO DAILY 10/17/24 01/20/25 History hydrocodone 5 mg-acetaminophen 325 1 tab PO Q6H PRN Postop pain #28 12/02/24 01/20/25 Rx mg tablet tabs meclizine 25 mg capsule 25 mg PO DAILY 12/02/24 01/20/25 History diclofenac sodium 1 % topical gel 2 g topical QID left wrist pain 12/17/24 01/20/25 Rx (Voltaren Arthritis Pain) #100 grams celecoxib 100 mg capsule (Celebrex) 100 mg PO BID #60 caps 01/20/25 01/20/25 Rx New Prescriptions to Start Prescriptions: Allergies Allergy/AdvReac Type Severity Reaction Status Date / Time No Known Allergies Allergy Verified 01/20/25 14:32 Objective Narrative: Physical Exam: General: Alert and oriented x3, no acute distress, pleasant and cooperative Lungs: Respirations even and unlabored, symmetrical chest expansion Eyes: PERRL Musculoskeletal: Flexion and extension of bilateral feet somewhat guarded secondary to pain, [antalgic gait noted] Neurological: Speech clear, no gross sensory deficit Assessment and Plan *Assessment and plan (1) Peripheral neuropathy: Status: Acute Category: Medical Code(s): G62.9 - Polyneuropathy, unspecified (2) Bilateral foot pain: Status: Acute Category: Medical Code(s): M79.671 - Pain in right foot; M79.672 - Pain in left foot (3) Back pain: Status: Acute Qualifiers: Back pain laterality: right Back pain location: low back pain Chronicity: unspecified Sciatica presence: without sciatica Qualified Code(s): M54.50 - Low back pain, unspecified Category: Medical Code(s): M54.9 - Dorsalgia, unspecified Plan Patient is experiencing worsening pain of numbness and tingling into her bilateral feet with limited range of motion. I did discuss with the patient that I do believe she would benefit from bilateral posterior tibial nerve blocks. Risk and benefits were discussed with the patient and she would like to proceed forward with this plan of care. Patient has had the peripheral neuropathy symptoms for longer than a year. She has tried oral medication, heat and ice, topicals, at home stretching exercise for longer than 12 weeks. Patient has also had EMG testing and testing to evaluate blood flow with no acute findings. Patient will be ordered a compounded cream. Patient will be scheduled for bilateral posterior tibial nerve blocks. This will be done without fluoroscopic or ultrasound guidance. Patient agrees with this plan of care. Patient has been instructed to contact the clinic with any concerns before the next appointment. Dr. Beasley has reviewed this note and agrees with this plan of care. This note was dictated using voice recognition software and make contain errors or omissions. All injections are used with Lidocaine, Bupivacaine and dexamethasone. Occasionally urine drug screen is needed to verify patient's compliance with our office pain contract. This is ordered based off specific treatments related to chronic pain with the potential to abuse certain medications.
[2025-06-02 15:13] VITALS: BP 137/52; PULSE 78; RESP 18; O2SAT 97; BMI 39.6
== END 2025-06-02 23:59 | disposition home or self-care (01) ==
LOC: SC.PAIN 13:56
PROVIDERS: PCP Nurse Practitioner; Visit Provider Nurse Practitioner Family
DX: G62.9 Polyneuropathy, unspecified (principal); Z79.1 Long term (current) use of non-steroidal anti-inflammatories (NSAID)
CPT/HCPCS: 99202; G0463

== ENCOUNTER 2025-06-25 11:24 | Outpatient (CLI) | payer MEDICARE, OTHER, SELFPAY ==
[2025-06-25 19:15] LABS: Thyroid Stimulating Hormone 3.51 uIU/mL (0.465-4.68)
--- OUTSIDE RECORDS SUMMARY | 2025-06-27 11:28 | XMS_ITS | Encounter Summary ---
Author Organization [facility] Address [address] [place] [address] Care Team Providers Care Steam Tunnel Feeder Name Role Phone Nirali Esqueda APRN Primary Care Provider [phone] Reason for Referral * Consultation (Routine) - Closed Specialty Diagnoses / Procedures Referred By Nalini t Referred To Contact Pain Medicine Diagnoses Osteoarthritis of left knee, unspecified osteoarthritis type Alexis Lovell DO [address] [place] [address] Phone: tel: fax: 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
--- OUTSIDE RECORDS SUMMARY | 2025-06-27 11:28 | XMS_ITS | Clinical Summary ---
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
--- OUTSIDE RECORDS SUMMARY | 2025-06-27 11:28 | XMS_ITS ---
Author Organization Unknown TREATMENT PLAN Planned [facility] Start Date Provider Encounter for Check-up [id number] [facility]
--- OUTSIDE RECORDS SUMMARY | 2025-06-27 11:28 | XMS_ITS | Referral Summary ---
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
--- OUTSIDE RECORDS SUMMARY | 2025-06-27 11:28 | XMS_ITS | Clinical Summary ---
Author Organization Healthcare Address [address] 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 or to get [...] Wellness (AWV) 1950 [facility]-/Child/Adol SDOH Screenings 1950 [id number] Vaccine (#1) 1953 [facility]- SDOH Screenings 1966 [...] this topic Medical Devices Implanted 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 Device Identifier Shelf Expiration Date Model / Serial / Lot Chg Shell R3 3 Hole Acet 50mm - [id number] Implanted:Qty: 1 on 01/18/2023 by Jalen Sage MD at [facility] Right: Hip [employer]dom [employer]-[id number] 09/29/2032 [id number] / / [id number] Liner R3 Xlpe 20deg 36mm X 50mm - [id number] Implanted:Qty: 1 on 01/18/2023 by Jalen Sage MD at [facility] Right: Hip [employer]-[id number] 06/05/2032 [id number] / / [id number] Chg Screw Ref Spher Head 40mm - [id number] Implanted:Qty: 1 on 01/18/2023 by Jalen Sage MD at [facility] Right: Hip [employer]-[id number] 07/13/2032 [id number] / / [id number] Chg Screw Ref Spher Head 20mm - [id number] Implanted:Qty: 1 on 01/18/2023 by Jalen Sage MD at [facility] Right: Hip [employer]dom [employer]hew [employer]-[id number] 06/23/2032 [id number] / / [id number] Hip Stem Plus Sl Integr Nata Lat M Ti Sterling 1 - [id number] Implanted:Qty: 1 on 01/18/2023 by Jalen Sage MD at [facility] Right: Hip [employer]dom [employer]hew [employer]-[id number] 10/02/2028 [id number] / / [id number] Chg Head Oxinium Fem 10/26 36 - [id number] Implanted:Qty: 1 on 01/18/2023 by Jalen Sage MD at [facility] Right: Hip [employer]dom [employer]-[id number] 09/18/2032 [id number] / / [id number] Procedures Procedure Name Priority Date/Time Associated Diagnosis [...] Adults <6.0% Children and Adolescents <7.5% Source: [place] [employer]. Standards of medical care in diabetes,2017. Diabetes Care.2017:40 (suppl 1):S1-S135. HbA1c assay performed by an ion-exchange chromatography method that is certified traceable to the DCCT. Jalen Sage MD LAB BLOOD ORDERABLES Final R esult [facility] [address] [place] [address] from Last 3 Months or Most Recently Relevant to Health Maintenance Insurance MEDICARE [employer] Advance Directives * Full Code (Latest Code Status on File) Date Activated Date Inactivated Comments 01/18/2023 11:25 AM 01/19/2023 4:33 PM Question Answer Comments Patient has decision-making capacity? Yes Care Teams Power Shovel Mechanic Relationship Specialty Start Date End Date Nirali Esqueda APRN [address] [place] [address] PCP - General 03/24/22
--- OUTSIDE RECORDS SUMMARY | 2025-06-27 11:28 | XMS_ITS | Clinical Summary ---
Author Organization [facility] Address [address] [place] [address] Care Team Providers Care Laboratory Sample Carrier Name Role Phone Viviane So APRN Primary [...] UPLIFTING IN) Inhale 30 mL. Ac tive [place]-3 Fatty Acids (fish oil) 1000 MG capsule capsule Take by mouth Daily With Breakfast. Active multivitamin with minerals tablet tablet Take 1 tablet by mouth Daily. Active Semaglutide,0.25 or 0.5MG/DOS, (OZEMPIC) 2 MG/3ML solution pen-injector Inject 0.5 mg under the skin into the appropriate area as directed 1 (One) Time Per Week. 2 mL 05/03/20 23 Active Semaglutide-Weight Management 0.25 MG/0.5ML solution auto-injector Inject 0.25 mg under the skin into the appropriate area as directed 1 (One) Time Per Week. 2 mL 05/03/20 23 Active ondansetron ODT (ZOFRAN-ODT) 4 MG [...] review. OFI: [facility] [place]. Look for senior exercise classes, water aerobics. [...] Nutritional recommendations and goals were reviewed including Calories:3786-2102 daily adjusted for exercise calories burnt, Protein:80-100 [...] (04/21/2023): Added automatically from request for surgery [id number] Resolved Problems Problem Noted Date Diagnosed Date [...] 2 diabetes mellitus without complication, unspecified whether exterminator insulin use from Last 3 Months or Most Recently Relevant to Health Maintenance Results * (ABNORMAL) Hemoglobin A1c (04/21/2023 2:35 PM EDT) Hemoglobin A1C 6.0(H) 4.8 - 5.6 % [facility] Comment: Prediabetes: 5.7 - 6.4 Diabetes: >6.4 Glycemic control for adults with diabetes: <7.0 04/21/2023 2:35 PM EDT 04/21/2023 Narrative [facility] (AMBUL[facility]) - 04/24/2023 1:08 PM EDT Performed at: 02 - [address] [id number] Quality Compliance Manager: Jarocho Drake PhD, Phone: [phone] Patient Fasting: N us Demetrice Willis MD LAB BLOOD ORDERABLES Fin al Result [facility] (AMBULATORY) [address] [place] [address], [facility] [address] [place] [address], * (ABNORMAL) Lipid Panel (04/21/2023 2:35 PM [...] 1:08 PM EDT Performed at: 02 - [facility] [address] [place], [place] [id number] Quality Compliance Manager: Jarocho Drake PhD, Phone: [phone] Patient Fasting: N Demetrice Willis MD LAB BLOOD ORDERABLES Fin al Result [facility] (AMBULATORY) [address] [place] [address], [facility] [address] [place] [address], from Last 3 Months or Most Recently Relevant to Health Maintenance Insurance MEDICARE A & B Care Teams Laboratory Sample Carrier Relationship Specialty Start Date End Date Viviane So APRN PCP - General Nurse Practitioner 04/07/23
== END 2025-06-25 23:59 | disposition home or self-care (01) ==
LOC: LAB.DROPOF 06-27 11:25
PROVIDERS: PCP Family Medicine; Visit Provider Family Medicine
DX: Z11.4 Encounter for screening for human immunodeficiency virus [HIV] (principal); R63.5 Abnormal weight gain
CPT/HCPCS: 84443; 87389